=== PATIENT | male | born 1965 | race Caucasian/White ===

== ENCOUNTER 2023-01-02 10:45 | Day surgery (SDC) | payer OTHER ==
[2023-01-02] MEDS ORDERED: Ringers Lactate 1,000 ML IV ONE (11:07)
--- NOTE | 2023-01-02 11:37 | EKG ---
Test Date: 2023-01-01 Test Time: 13:09:35 Imaging Account Manager: CD MEASUREMENT RESULTS: Intervals: Rate: 84 WI: 178 QRSD: 158 QT: 422 QTc: 498 Dix: P: 78 WI: 178 QRS: -57 T: 53 INTERPRETIVE STATEMENTS: Normal sinus rhythm Right bundle branch block Left anterior fascicular block Bifascicular block Abnormal ECG No previous ECG available for comparison Electronically Signed On 01-02-23 11:36:36 CDT by Diaz Taveras
[2023-01-02] MEDS ORDERED: LIDOCAINE 1% MPF 5 ML VIAL ONE (12:23)
[2023-01-02] MEDS ORDERED: propofoL 200 MG/20 ML VIAL IV ONE ×2 (12:23→13:25)
[2023-01-02 13:50] VITALS: TEMP 97.3
[2023-01-02 13:52] VITALS: BP 119/99; O2SAT 98
== END 2023-01-02 13:30 | disposition home or self-care (01) ==
LOC: OR 10:45
PROVIDERS: ATTEND Surgery
PROC: 0DBN8ZX Excision of Sigmoid Colon, Via Natural or Artificial Opening Endoscopic, Diagnostic (ICD-10-PCS; principal; 2023-01-02 12:30)
DX: K63.89 Other specified diseases of intestine (principal); N42.9 Disorder of prostate, unspecified; K57.32 Diverticulitis of large intestine without perforation or abscess without bleeding; K63.2 Fistula of intestine; R10.30 Lower abdominal pain, unspecified
CPT/HCPCS: 93005; 88305; 45380; J2704 ×2; J2001; J7120

== ENCOUNTER 2023-01-14 06:31 | Day surgery (SDC) | payer OTHER ==
[2023-01-09 15:24] LABS: Protime INR 0.94
[2023-01-14] MEDS ORDERED: Gentamicin Inj 200 MG in NA CHLORIDE 0.9% 100 ML IV ONE (07:00)
[2023-01-14] MEDS ORDERED: Ringers Lactate 1,000 ML IV ONE (07:02)
[2023-01-14] MEDS ORDERED: AMPICILLIN SODIUM 2 GM/VIAL VIAL ONE (07:02)
[2023-01-14] MEDS ORDERED: FENTANYL CITR 100 MCG/2 ML ONE ×3 (07:18→08:56)
[2023-01-14] MEDS ORDERED: propofoL 200 MG/20 ML VIAL IV ONE (07:18)
[2023-01-14] MEDS ORDERED: LIDOCAINE 1% MPF 5 ML VIAL ONE (07:19)
[2023-01-14] MEDS ORDERED: ONDANSETRON 4 MG/2 ML VIAL ONE (07:19)
[2023-01-14] MEDS ORDERED: MIDAZOLAM HCL 2 MG/2 ML INJ ONE (07:19)
[2023-01-14] MEDS ORDERED: dexAMETHasone 10 MG/ML VIAL ONE (08:00)
[2023-01-14] MEDS ORDERED: KETAMINE HCL IN 0.9 % NACL 50 MG/5 ML SYRINGE IV ONE (08:07)
[2023-01-14] MEDS ORDERED: KETOROLAC 30 MG/ML INJ ONE (08:46)
[2023-01-14] MEDS ORDERED: PHENAZOPYRIDINE 100MG TAB PO ONE ×2 (08:52→09:37)
[2023-01-14] MEDS ORDERED: CODEINE 30MG/APAP 300MG TAB PO PRN (08:52)
--- NOTE | 2023-01-14 09:26 | OP ---
Surgeon: JOSEMANUEL BRUNSON Preoperative Diagnosis: Colovesical fistula. Postoperative Diagnoses: 1.Colovesical fistula. 2.Chronic cystitis bacillary. Principal Procedures: Cystoscopy with bladder biopsies and fulguration. Indication For Procedure: Mr. Monet is a 57-year-old gentleman, who presented to [facility] with recurrent urinary tract infections. He underwent evaluation revealing suspected colovesical f istula observed cystoscopically in the posterior wall of his bladder. He subsequently underwent a CT scan, which revealed what appeared to be potentially a mass in the colon, and I referred him for gen eral surgical evaluation. He saw Dr. Fong in evaluation and a colonoscopy was performed without e vidence of any significant colonic mass identified. As a result, to rule out bladder lesion/tumor as the primary source for the fistulous tract development, bladder biopsies were recommended. He prese [facility] today for that evaluation. Findings: Left lateral wall posterior colovesical fistula and chronic cystitis. Procedure In Detail: The patient was consented in the preoperative holding area before being transfe rred to the operative suite where general anesthesia was induced. He was given ampicillin 2 g and ge ntamicin 2-3 mg/kg IV antimicrobial prophylaxis, and pneumo boots were provided for DVT prophylaxis. He was placed in the lithotomy position, padded and secured to the table appropriately. His genital ia were prepped with Hibiclens, and he was draped in standard fashion. The case was begun using a 22 -Egyptian rigid cystoscope to traverse the urethra and into the bladder with ease. The bladder was dec ompressed of fluid and some slightly cloudy appearing urine and then refilled with sterile water. Th e bladder was distended and surveyed in its entirety. Within the left lateral wall of the bladder po steriorly, there was evidence of significant inflammatory change of the mucosa suspicious for the fis tulous site. The remainder of the bladder was free of any significant mucosal lesion, though there w ere small areas of evident chronic cystitis throughout. As a result, I utilized a cold cup biopsy fo rceps to biopsy the mucosa surrounding the central portion of the fistulous site where some mucus cou ld be seen entering into the bladder. Once the edematous and inflamed tissue had been removed, the e vident fistulous tract was visible with colonic mucosa identifiable via the magnified cystoscopic bhumi s. Those biopsies were sent for pathologic analysis, and I utilized a Bugbee electrode to fulgurate the base of the biopsy area that was actively bleeding because of the ongoing inflammation. Once the bleeding was controlled and the bladder was decompressed, and there continued to be absence of any b leeding, I then surveyed the remainder of the bladder using a 70-degree lens in addition to the 30-de gree lens that was used throughout the procedure, and once I confirmed absence of any additional lesi ons of suspicion, I decompressed his bladder and removed the cystoscope. He was then taken out of th e lithotomy position, awakened from general anesthesia, transferred to a stretcher, and then transfer red to the recovery room in good condition. Complications: None. Discharge Disposition: He should follow up in the Urology Clinic, which may be a virtual visit, to ivett vega the results of the pathology within the next 1-2 weeks. We anticipate the pathology to be mela ign for any bladder malignancy, and he would then be scheduled with Dr. Fong for sigmoidectomy wit h repair of the bladder done by me simultaneously. Of note, after biopsying the inflamed mucosa arou nd the fistulous injury, I did see what appeared to be potentially a foreign body material at that ju nction potentially old staple material that may have dropped into that region from his prior hernia r epair. I will discuss this with Dr. Fong. ESTEBAN/BARRERA Voice ID: [id number] Report ID: [id number]
[2023-01-14] MEDS ORDERED: CODEINE 30MG/APAP 300MG TAB ONE (09:37)
[2023-01-14 09:50] VITALS: BP 145/85; TEMP 97.3; O2SAT 98
== END 2023-01-14 10:04 | disposition home or self-care (01) ==
LOC: OR 06:31
PROVIDERS: ATTEND Urology
PROC: 0TBB8ZX Excision of Bladder, Via Natural or Artificial Opening Endoscopic, Diagnostic (ICD-10-PCS; principal; 2023-01-14 07:30)
DX: N32.1 Vesicointestinal fistula (principal); N32.9 Bladder disorder, unspecified; N30.20 Other chronic cystitis without hematuria
CPT/HCPCS: 87088; 87086; 36415; 85610; 88305; 52204; J2704; J2001; J1580; J2250; J3010 ×3; J1100; J2405; J0290; J7120

== ENCOUNTER 2023-02-25 06:58 | Inpatient (IN) | payer OTHER ==
[2023-02-21 15:41] LABS: Protime INR 1.03
[2023-02-21 15:47] LABS: Absolute Lymphocytes (CBC) 1.4 K/uL (0.7-4.9); Hematocrit 36.5 % (39.6-49.0); Lymphocytes % 25.3 % (15.3-44.8); MCV 94.2 fL (80-100); MPV 8.8 fL (7.6-11.3); RBC Red Blood Cell Count 3.87 M/uL (4.33-5.43)
[2023-02-21 15:55] LABS: Potassium 3.3 mEq/L (3.5-5.1)
[2023-02-25] MEDS ORDERED: Ringers Lactate 1,000 ML IV ONE ×3 (07:23→12:03)
[2023-02-25] MEDS ORDERED: CEFAZOLIN SODIUM 2 GM/VIAL ONE (07:23)
[2023-02-25] MEDS ORDERED: FENTANYL CITR 100 MCG/2 ML ONE ×3 (07:41→12:04)
[2023-02-25] MEDS ORDERED: propofoL 200 MG/20 ML VIAL IV ONE (07:42)
[2023-02-25] MEDS ORDERED: MIDAZOLAM HCL 2 MG/2 ML INJ ONE (07:42)
[2023-02-25] MEDS ORDERED: LIDOCAINE 2% MPF 5 ML VIAL ONE (07:43)
[2023-02-25] MEDS ORDERED: ROCURONIUM 50 MG/5 ML VIAL IV ONE (07:44)
[2023-02-25] MEDS ORDERED: ONDANSETRON 4 MG/2 ML VIAL ONE ×2 (07:44→15:59)
[2023-02-25] MEDS ORDERED: BUPIVACAINE 0.25% PF 30 ML VIAL ONE (08:24)
[2023-02-25] MEDS ORDERED: dexAMETHasone 10 MG/ML VIAL ONE (08:30)
[2023-02-25] MEDS ORDERED: KETOROLAC 30 MG/ML INJ ONE (08:31)
[2023-02-25] MEDS ORDERED: EPHEDRINE SULF 50 MG/ML VIAL ONE (08:37)
[2023-02-25] MEDS ORDERED: METHYLENE BLUE 0.5% 10 ML AMP ONE (08:40)
[2023-02-25] MEDS ORDERED: VECURONIUM 10 MG/VIAL IV ONE (09:12)
[2023-02-25] MEDS ORDERED: HYDROMORPHONE HCL 2 MG/ML inj ONE (10:41)
--- NOTE | 2023-02-25 14:40 | P.OP ---
Cabin Equipment Supervisor: Shreya Valenzuela (Dr. Galicia Urologist Co-Surgeon) Preoperative diagnosis: Sigmoid Diverticulitis with [place] Fistula Postoperative diagnosis: Sigmoid Diverticulitis with [place] Fistula Primary procedure: Laparoscopic Sigmoid Colectomy with primary anastamosis Secondary procedure: Takedown of Colovesicle Fistula Anesthesia: GETA + Local Estimated blood loss: <50cc Specimen: Sigmoid Colon, Donuts from EEA Stapler / Anastamosis Findings: Severe LLQ adhesions from sigmoid to bladder Complications: None Drain(s): SHAKIR drain (10mm Flat) Transferred to: Recovery Room Condition: Good
[2023-02-25] MEDS ORDERED: ONDANSETRON 4 MG (ODT) TAB PO PRN (15:23)
[2023-02-25] MEDS ORDERED: METRONIDAZOLE 500mg IVPB 500 MG/100 ML BAG IV ONE ×2 (16:00→16:17)
[2023-02-25] MEDS ORDERED: Levofloxacin500mg IV 500 MG/100 ML BAG IV ONE (16:00)
--- OUTSIDE RECORDS SUMMARY | 2023-02-25 16:01 | XMS REPORT | Continuity of Care Document ---
:1965 Author Organization [facility] t Address [address] [place] [address] [place] [id number] Care Team Providers Name Role Phone Jacqueline Crowell MD Primary Care Physician [phone] Josh UPPER MARKER, Ogechukwu Attending Clinician DONELL Attending Clinician Unavailable Jacqueline Crowell MD Attending Clinician [phone] JACQUELINE CROWELL Attending Clinician Unavailable Doctor Unassigned, [facility] Attending Clinician Unavailable 2, [facility] Attending Clinician Unavailable DONELL Admitting Clinician Unavailable Payers Payer Name Policy Type Policy Number Effective Date Expiration Date S ource Deysi Benefits 53 [id number] [facility] DEYSI BENEFITS [id number] (PPO) Problems Condition Condition Condition Status Onset Resolution Last Treating Co mments Source Name Details Category Date Date Treatment Clinician Date Essential Essential Problem Active 2021-09 Swe nate hypertensi Hypertensi 09-10 Co [facility]muni on on [facility] Depressive Depressive Problem Active 2021-09 S weeny disorder Disorder 09-10 Commun i 00:00: [facility] Insomnia Insomnia Problem Active 2021-09 Sween y 09-10 Communi 00:00: [facility] Caregiver Caregiver Disease Active Uni vers stress stress 01-14 ity of 00:00: [place] 00 [facility] Hyperlipid Hyperlipid Disease Active U nivrocío emia emia 01-03 ity of 00:00: [place] 00 [facility] Essential Essential Disease Active Uni vers hypertensi hypertensi 10-03 it y of on, benign [place] [facility] Vitamin D Vitamin D Disease Active Overview: Univers deficiency deficiency 10-03 Formattin ity of 00:00: g of this note Medical might be Branch different from the original. 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 10-03 ity of 00:00: [place] 00 [facility] Branch [id number] Acute Problem Common cystitis Spirit with - [facility] hematuria [facility] [id number] Family Problem Common history of [facility] bladder - [facility] cancer [facility] [id number] Gross Problem Common hematuria [facility] [id number] Lower Problem Common [facility] Allergies, Adverse Reactions, Alerts Allergy Allergy Status Severity Reaction(s) Onset Inactive Treating Comm ents Source Name Type Date Date Clinician NO KNOWN Drug Active Univers ALLERGIE Class ity of S [facility] Social History Social Habit Start Date Stop Date Quantity Comments Source History of [facility] - Tobacco Use [facility] Sex Assigned At Common Sp antony - [facility] Exposure to 2021-12-29 2022-01-08 Not sure University SARS-CoV-2 00:00:00 09:00:00 [place] Medical (event) Branch Alcohol intake 2021-07-10 2021-07-10 Current University of 00:00:00 00:00:00 non-drinker of [facility] alcohol (finding) Branch Tobacco use and 2014-10-04 2014-10-04 Smokeless tobacco Un iversity of exposure 00:00:00 00:00:00 non-user [facility] Smoking Status Start Date Stop Date Source Never Smoker [facility] Medications Ordered Filled Start Stop Current Ordering Indication Dosage Frequency Signature Comments Components Source Medication Medication Date Date Medication? Clinician (SIG) Name Name Cefpodoxime Cefpodoxime 2022- No 1{table BID Cefpodoxim Proxetil Proxetil 10-09 t_with_ e Proxetil 200 MG 200 MG 00:00: 00:00 food} 200 MG 00 :00 Flomax 0.4 Flomax 0.4 2022- No 1{capsu QD Flomax 0.4 MG MG -18 08-16 le} MG 00:00: 00:00 00 :00 Flomax 0.4 Flomax 0.4 2022- No 1{capsu QD Flomax 0.4 MG MG 18 -16 le} MG 00:00: 00:00 00 :00 ZOLPIDEM 10 2021-09 Yes [id number] 10mg TAKE 1 U nivers mg tablet 1-30 TABLET BY ity o f 00:00: MOUTH AT [place] 00 BEDTIME Medical NEEDED FOR Branch INSOMNIA ZOLPIDEM 10 2021-09 Yes [id number] 10mg TAKE 1 U nivers mg tablet 1-30 TABLET BY ity o f 00:00: MOUTH AT [place] 00 BEDTIME Medical NEEDED FOR Branch INSOMNIA ZOLPIDEM 10 Yes [id number] 10mg TAKE 1 U nivers mg tablet 9-23 TABLET BY ity o f 00:00: MOUTH AT [place] 00 BEDTIME Medical NEEDED FOR Branch INSOMNIA. ZOLPIDEM 10 2021- No [id number] 10mg TAKE 1 Univers mg tablet 9-23 11-30 TABLET BY ity of 00:00: 00:00 MOUTH AT [place] 00 :00 BEDTIME Medical NEEDED FOR Branch INSOMNIA. multivitami Yes 1{tbl} Take 1 Tab Univers n tablet 5-03 by mouth ity of 08:58: daily. [place] [id number] Medical Branch CYANOCOBALA Yes Take by Uni vers MIN, 5-03 mouth. ity of VITAMIN 08:58: Medical (VITAMIN Branch B-12 ORAL) multivitami Yes 1{tbl} Take 1 Tab Univers n tablet 5-03 by mouth ity of 08:58: daily. Medical Branch CYANOCOBALA Yes Take by Uni vers MIN, 5-03 mouth. ity of VITAMIN 08:58: Medical (VITAMIN Branch B-12 ORAL) multivitami Yes 1{tbl} Take 1 Tab Univers n tablet 5-03 by mouth ity of 08:58: daily. Medical Branch CYANOCOBALA Yes Take by Uni vers MIN, 5-03 mouth. ity of VITAMIN 08:58: Medical (VITAMIN Branch B-12 ORAL) multivitami Yes 1{tbl} Take 1 Tab Univers n tablet 5-03 by mouth ity of 08:58: daily. Medical Branch CYANOCOBALA Yes Take by Uni vers MIN, 5-03 mouth. ity of VITAMIN 08:58: Medical (VITAMIN Branch B-12 ORAL) multivitami Yes 1{tbl} Take 1 Tab Univers n tablet 5-03 by mouth ity of 08:58: daily. Medical Branch CYANOCOBALA Yes Take by Uni vers MIN, 5-03 mouth. ity of VITAMIN 08:58: [place] Medical (VITAMIN Branch B-12 ORAL) lisinopriL Yes [id number] 20mg Take 1 Un ilia 20 mg 5-03 tablet by ity of tablet 00:00: mouth 00 daily. Medical Branch cyclobenzap Yes [id number] Start with Univers rine 5 mg 5-03 one pill ity of tablet 00:00: daily as [place] [id number] needed, Medical can use up Branch to one pill three times a day. zolpidem 10 Yes [id number] 10mg Take 1 U nivers mg tablet 5-03 tablet by ity o f 00:00: mouth at [place] 00 bedtime as Medical needed for Branch Insomnia. lisinopriL Yes [id number] 20mg Take 1 Un ilia 20 mg 5-03 tablet by ity of tablet 00:00: mouth [place] 00 daily. Medical Branch cyclobenzap Yes [id number] Start with Univers rine 5 mg 5-03 one pill ity of tablet 00:00: daily as [place] 00 needed, Medical can use up Branch to one pill three times a day. zolpidem 10 0 Yes [id number] 10mg Take 1 U nivers mg tablet 5-03 tablet by ity o f 00:00: mouth at [place] 00 bedtime as Medical needed for Branch Insomnia. lisinopriL 0 Yes [id number] 20mg Take 1 Un ilia 20 mg 5-03 tablet by ity of tablet 00:00: mouth [place] 00 daily. Medical Branch cyclobenzap Yes [id number] Start with Univers rine 5 mg 5-03 one pill ity of tablet 00:00: daily as [place] 00 needed, Medical can use up Branch to one pill three times a day. lisinopriL 0 Yes [id number] 20mg Take 1 Un ilia 20 mg 5-03 tablet by ity of tablet 00:00: mouth [place] 00 daily. Medical Branch cyclobenzap Yes [id number] Start with Univers rine 5 mg 5-03 one pill ity of tablet 00:00: daily as [place] 00 needed, Medical can use up Branch to one pill three times a day. lisinopriL 0 Yes [id number] 20mg Take 1 Un ilia 20 mg 5-03 tablet by ity of tablet 00:00: mouth [place] 00 daily. Medical Branch cyclobenzap Yes [id number] Start with Univers rine 5 mg 5-03 one pill ity of tablet 00:00: daily as [place] 00 needed, Medical can use up Branch to one pill three times a day. zolpidem 10 2021- No [id number] 10mg Take 1 Univers mg tablet 5-03 -23 tablet by ity of 00:00: 00:00 mouth at [place] 00 :00 bedtime as Medical needed for Branch Insomnia. ibuprofen 0 Yes [id number] 600mg Take 1 Univers 600 mg 1-19 tablet by ity of tablet 00:00: mouth [place] 00 every 6 Medical (six) Branch hours as needed (take with food. increase hydration) . ibuprofen 2021-0 Yes [id number] 600mg Take 1 Univers 600 mg 1-19 tablet by ity of tablet 00:00: mouth [place] 00 every 6 Medical (six) Branch hours as needed (take with food. increase hydration) . ibuprofen 2021-0 Yes [id number] 600mg Take 1 Univers 600 mg 1-19 tablet by ity of tablet 00:00: mouth [place] 00 every 6 Medical (six) Branch hours as needed (take with food. increase hydration) . ibuprofen 2021-0 Yes [id number] 600mg Take 1 Univers 600 mg 1-19 tablet by ity of tablet 00:00: mouth [place] 00 every 6 Medical (six) Branch hours as needed (take with food. increase hydration) . ibuprofen 2021-0 Yes [id number] 600mg Take 1 Univers 600 mg 1-19 tablet by ity of tablet 00:00: mouth [place] 00 every 6 Medical (six) Branch hours as needed (take with food. increase hydration) . fluticasone 2020-09 Yes [id number] 1{spray Use 1 Univers propionate 1-02 } [place] in ity o f 50 00:00: each [place] mcg/actuati 00 nostril Medic al on nasal daily. Branch spray fluticasone 2020-09 Yes [id number] 1{spray Use 1 Univers propionate 1-02 } [place] in ity o f 50 00:00: each [place] mcg/actuati 00 nostril Medic al on nasal daily. Branch spray fluticasone 2020-09 Yes [id number] 1{spray Use 1 Univers propionate 1-02 } [place] in ity o f 50 00:00: each [place] mcg/actuati 00 nostril Medic al on nasal daily. Branch spray fluticasone 2020-09 Yes [id number] 1{spray Use 1 Univers propionate 1-02 } [place] in ity o f 50 00:00: each [place] mcg/actuati 00 nostril Medic al on nasal daily. Branch spray fluticasone 2020-09 Yes [id number] 1{spray Use 1 Univers propionate 1-02 } [place] in ity o f 50 00:00: each [place] mcg/actuati 00 nostril Medic al on nasal daily. Branch spray zolpidem 10 2020-09- No [id number] 10mg Take 1 Univers mg tablet 09-09-03 tablet by ity of 00:00: 00:00 mouth at [place] 00 :00 bedtime as Medical needed for Branch Insomnia. zolpidem 10 2020-09- No [id number] 10mg Take 1 Univers mg tablet 09-09 tablet by ity of 00:00: 00:00 mouth at [place] 00 :00 bedtime as Medical needed for Branch Insomnia. lisinopriL 2020-09- No [id number] 40mg Take 1 U nivers 40 mg 0- tablet by ity of tablet 00:00: 00:00 mouth [place] 00 :00 daily. Medical Branch lisinopriL 2020-09- No [id number] 40mg Take 1 U nivers 40 mg - tablet by ity of tablet 00:: : mouth [place] 00 :00 daily. Medical Branch amlodipine amlodipine No 1 Q1D amlodipine [place] 5 mg tablet 5 mg tablet 5 mg C ommuni Take 1 Take 1 tablet ty tablet tablet Take 1 Hospita every day every day tablet l by oral by oral every day Clin ics route for route for by oral 90 days. 90 days. route for 90 days. atorvastati atorvastati No 1 Q1D atorvastat [place] n 20 mg n 20 mg in 20 mg Commu ni tablet Take tablet Take tablet ty 1 tablet 1 tablet Take 1 Hospi ta every day every day tablet l by oral by oral every day Clin ics route for route for by oral 90 days. 90 days. route for 90 days. cyclobenzap cyclobenzap No cyclobenza [place] rine 5 mg rine 5 mg champ 5 mg Communi tablet tablet tablet ty [facility] fluticasone fluticasone No 1spray( Q1D fluticason [place] propionate propionate s) e Com inga 50 50 propionate ty mcg/actuati mcg/actuati 50 H ospita on nasal on nasal mcg/actuat l spray,suspe spray,suspe ion nasal Clinics nsion [place] nsion [place] spray,susp 1 spray 1 spray ension every day every day [place] 1 by by spray intranasal intranasal every day route as route as by directed. directed. intranasal route as directed. ibuprofen ibuprofen No ibuprofen [place] 600 mg 600 mg 600 mg Communi tablet tablet tablet ty [facility] lisinopril lisinopril No 1 Q1D lisinopril [place] 40 mg 40 mg 40 mg Communi tablet Take tablet Take tablet ty 1 tablet 1 tablet Take 1 Hospi ta every day every day tablet l by oral by oral every day Clin ics route for route for by oral 90 days. 90 days. route for 90 days. multivitami multivitami No multivitam [place] n n in Communi ty Hospita l Clinics mupirocin 2 mupirocin 2 No mupirocin [place] % topical % topical 2 % Commu ni ointment ointment topical ty APPLY A APPLY A ointment Hospi ta SMALL SMALL APPLY A l AMOUNT TO AMOUNT TO SMALL Clin ics THE THE AMOUNT TO AFFECTED AFFECTED THE AREA BY AREA BY AFFECTED TOPICAL TOPICAL AREA BY ROUTE 3 ROUTE 3 TOPICAL TIMES PER TIMES PER ROUTE 3 DAY DAY TIMES PER DAY nitrofurant nitrofurant No 1capsul Q6H nitrofuran [place] oin oin e(s) toin Communi macrocrysta macrocrysta macrocryst ty l 100 mg l 100 mg al 100 mg [facility] capsule capsule capsule l Take 1 Take 1 Take 1 Clinics capsule capsule capsule every 6 every 6 every 6 hours by hours by hours by oral route oral route oral route for 7 days. for 7 days. for 7 days. omeprazole omeprazole No 1capsul Q1D omeprazole [place] 20 mg 20 mg e(s) 20 mg Communi capsule,del capsule,del capsule,de ty ayed ayed layed Hospita release release release l Take 1 Take 1 Take 1 Clinics capsule capsule capsule every day every day every day by oral by oral by oral route. route. route. ondansetron ondansetron No 1 Q5H ondansetro [place] 4 mg 4 mg n 4 mg Communi disintegrat disintegrat disintegra ty ing tablet ing tablet ting Hos par[facility]en Place 1 Place 1 tablet l tablet tablet Place 1 Clinics every 4-6 every 4-6 tablet hours by hours by every 4-6 translingua translingua hours by l route as l route as translingu needed for needed for al route 5 days. 5 days. as needed for 5 days. tamsulosin tamsulosin No 1capsul Q1D tamsulosin [place] 0.4 mg 0.4 mg e(s) 0.4 mg Communi capsule capsule capsule ty Take 1 Take 1 Take 1 Hospita capsule capsule capsule l every day every day every day Clinics by oral by oral by oral route. route. route. zolpidem 10 zolpidem 10 No zolpidem [place] mg tablet mg tablet 10 mg Comm uni TAKE 1 TAKE 1 tablet ty TABLET BY TABLET BY TAKE 1 Hos parveen MOUTH AT MOUTH AT TABLET BY l BEDTIME BEDTIME MOUTH AT Clinics NEEDED FOR NEEDED FOR BEDTIME INSOMNIA INSOMNIA NEEDED FOR INSOMNIA amlodipine amlodipine No 1 Q1D amlodipine [place] 5 mg tablet 5 mg tablet 5 mg C ommuni Take 1 Take 1 tablet ty tablet tablet Take 1 Hospita every day every day tablet l by oral by oral every day Clin ics route for route for by oral 90 days. 90 days. route for 90 days. atorvastati atorvastati No 1 Q1D atorvastat [place] n 20 mg n 20 mg in 20 mg Commu ni tablet Take tablet Take tablet ty 1 tablet 1 tablet Take 1 Hospi ta every day every day tablet l by oral by oral every day Clin ics route for route for by oral 90 days. 90 days. route for 90 days. cyclobenzap cyclobenzap No cyclobenza [place] rine 5 mg rine 5 mg champ 5 mg Communi tablet tablet tablet ty Hospita l Clinics fluticasone fluticasone No 1spray( Q1D fluticason [place] propionate propionate s) e Com inga 50 50 propionate ty mcg/actuati mcg/actuati 50 H ospita on nasal on nasal mcg/actuat l spray,suspe spray,suspe ion nasal Clinics nsion [place] nsion [place] spray,susp 1 spray 1 spray ension every day every day [place] 1 by by spray intranasal intranasal every day route as route as by directed. directed. intranasal route as directed. ibuprofen ibuprofen No ibuprofen [place] 600 mg 600 mg 600 mg Communi tablet tablet tablet ty Hospita l Clinics lisinopril lisinopril No 1 Q1D lisinopril [place] 40 mg 40 mg 40 mg Communi tablet Take tablet Take tablet ty 1 tablet 1 tablet Take 1 Hospi ta every day every day tablet l by oral by oral every day Clin ics route for route for by oral 90 days. 90 days. route for 90 days. multivitami multivitami No multivitam [place] n n in Communi ty Hospita l Clinics amlodipine amlodipine No 1 Q1D amlodipine [place] 5 mg tablet 5 mg tablet 5 mg C ommuni Take 1 Take 1 tablet ty tablet tablet Take 1 Hospita every day every day tablet l by oral by oral every day Clin ics route for route for by oral 90 days. 90 days. route for 90 days. mupirocin 2 mupirocin 2 No mupirocin [place] % topical % topical 2 % Commu ni ointment ointment topical ty APPLY A APPLY A ointment Hospi ta SMALL SMALL APPLY A l AMOUNT TO AMOUNT TO SMALL Clin ics THE THE AMOUNT TO AFFECTED AFFECTED THE AREA BY AREA BY AFFECTED TOPICAL TOPICAL AREA BY ROUTE 3 ROUTE 3 TOPICAL TIMES PER TIMES PER ROUTE 3 DAY DAY TIMES PER DAY nitrofurant nitrofurant No 1capsul Q6H nitrofuran [place] oin oin e(s) toin Communi macrocrysta macrocrysta macrocryst ty l 100 mg l 100 mg al 100 mg [facility] spita capsule capsule capsule l Take 1 Take 1 Take 1 Clinics capsule capsule capsule every 6 every 6 every 6 hours by hours by hours by oral route oral route oral route for 7 days. for 7 days. for 7 days. omeprazole omeprazole No 1capsul Q1D omeprazole [place] 20 mg 20 mg e(s) 20 mg Communi capsule,del capsule,del capsule,de ty ayed ayed layed Hospita release release release l Take 1 Take 1 Take 1 Clinics capsule capsule capsule every day every day every day by oral by oral by oral route. route. route. ondansetron ondansetron No 1 Q5H ondansetro [place] 4 mg 4 mg n 4 mg Communi disintegrat disintegrat disintegra ty ing tablet ing tablet ting Hos [facility] Place 1 Place 1 tablet l tablet tablet Place 1 Clinics every 4-6 every 4-6 tablet hours by hours by every 4-6 translingua translingua hours by l route as l route as translingu needed for needed for al route 5 days. 5 days. as needed for 5 days. tamsulosin tamsulosin No 1capsul Q1D tamsulosin [place] 0.4 mg 0.4 mg e(s) 0.4 mg Communi capsule capsule capsule ty Take 1 Take 1 Take 1 Hospita capsule capsule capsule l every day every day every day Clinics by oral by oral by oral route. route. route. zolpidem 10 zolpidem 10 No zolpidem [place] mg tablet mg tablet 10 mg Comm uni TAKE 1 TAKE 1 tablet ty TABLET BY TABLET BY TAKE 1 Hos parveen MOUTH AT MOUTH AT TABLET BY l BEDTIME BEDTIME MOUTH AT Clinics NEEDED FOR NEEDED FOR BEDTIME INSOMNIA INSOMNIA NEEDED FOR INSOMNIA atorvastati atorvastati No 1 Q1D atorvastat [place] n 20 mg n 20 mg in 20 mg Commu ni tablet Take tablet Take tablet ty 1 tablet 1 tablet Take 1 Hospi ta every day every day tablet l by oral by oral every day Clin ics route for route for by oral 90 days. 90 days. route for 90 days. cyclobenzap cyclobenzap No cyclobenza [place] rine 5 mg rine 5 mg champ 5 mg Communi tablet tablet tablet ty [facility] fluticasone fluticasone No fluticason [place] propionate propionate e Com inga 50 50 propionate ty mcg/actuati mcg/actuati 50 H [facility]spita on nasal on nasal mcg/actuat l spray,suspe spray,suspe ion nasal Clinics nsion nsion spray,susp ension ibuprofen ibuprofen No ibuprofen [place] 600 mg 600 mg 600 mg Communi tablet tablet tablet ty [facility] lisinopril lisinopril No 1 Q1D lisinopril [place] 40 mg 40 mg 40 mg Communi tablet Take tablet Take tablet ty 1 tablet 1 tablet Take 1 Hospi ta every day every day tablet l by oral by oral every day Clin ics route for route for by oral 90 days. 90 days. route for 90 days. amlodipine amlodipine No 1 Q1D amlodipine [place] 5 mg tablet 5 mg tablet 5 mg C ommuni Take 1 Take 1 tablet ty tablet tablet Take 1 Hospita every day every day tablet l by oral by oral every day Clin ics route for route for by oral 90 days. 90 days. route for 90 days. atorvastati atorvastati No 1 Q1D atorvastat [place] n 20 mg n 20 mg in 20 mg Commu ni tablet Take tablet Take tablet ty 1 tablet 1 tablet Take 1 Hospi ta every day every day tablet l by oral by oral every day Clin ics route for route for by oral 90 days. 90 days. route for 90 days. cyclobenzap cyclobenzap No cyclobenza [place] rine 5 mg rine 5 mg champ 5 mg Communi tablet tablet tablet ty [facility] fluticasone fluticasone No fluticason [place] propionate propionate e Com inga 50 50 propionate ty mcg/actuati mcg/actuati 50 H ospita on nasal on nasal mcg/actuat l spray,suspe spray,suspe ion nasal Clinics nsion nsion spray,susp ension ibuprofen ibuprofen No ibuprofen [place] 600 mg 600 mg 600 mg Communi tablet tablet tablet [facility] lisinopril lisinopril No 1 Q1D lisinopril [place] 40 mg 40 mg 40 mg Communi tablet Take tablet Take tablet ty 1 tablet 1 tablet Take 1 Hospi ta every day every day tablet l by oral by oral every day Clin ics route for route for by oral 90 days. 90 days. route for 90 days. amlodipine amlodipine No 1 Q1D amlodipine [place] 5 mg tablet 5 mg tablet 5 mg C ommuni Take 1 Take 1 tablet ty tablet tablet Take 1 Hospita every day every day tablet l by oral by oral every day Clin ics route for route for by oral 90 days. 90 days. route for 90 days. atorvastati atorvastati No 1 Q1D atorvastat [place] n 20 mg n 20 mg in 20 mg Commu ni tablet Take tablet Take tablet ty 1 tablet 1 tablet Take 1 Hospi ta every day every day tablet l by oral by oral every day Clin ics route for route for by oral 90 days. 90 days. route for 90 days. cyclobenzap cyclobenzap No cyclobenza [place] rine 5 mg rine 5 mg champ 5 mg Communi tablet tablet tablet ty [facility] fluticasone fluticasone No fluticason [place] propionate propionate e Com inga 50 50 propionate ty mcg/actuati mcg/actuati 50 H ospita on nasal on nasal mcg/actuat l spray,suspe spray,suspe ion nasal Clinics nsion nsion spray,susp ension ibuprofen ibuprofen No ibuprofen [place] 600 mg 600 mg 600 mg Communi tablet tablet tablet [facility] Levaquin Levaquin No 1 Q1D Levaquin Swe nate 750 mg 750 mg 750 mg Communi tablet Take tablet Take tablet ty 1 tablet 1 tablet Take 1 Hospi ta every day every day tablet l by oral by oral every day Clin ics route for route for by oral 10 days. 10 days. route for 10 days. lisinopril lisinopril No 1 Q1D lisinopril [place] 40 mg 40 mg 40 mg Communi tablet Take tablet Take tablet ty 1 tablet 1 tablet Take 1 Hospi ta every day every day tablet l by oral by oral every day Clin ics route for route for by oral 90 days. 90 days. route for 90 days. ondansetron ondansetron No 1 Q5H ondansetro [place] 4 mg 4 mg n 4 mg Communi disintegrat disintegrat disintegra ty ing tablet ing tablet ting Hos [facility]en Place 1 Place 1 tablet l tablet tablet Place 1 Clinics every 4-6 every 4-6 tablet hours by hours by every 4-6 translingua translingua hours by l route as l route as translingu needed for needed for al route 5 days. 5 days. as needed for 5 days. Pyridium Pyridium No 1 TID Pyridium Swe nate 200 mg 200 mg 200 mg Communi tablet Take tablet Take tablet ty 1 tablet 3 1 tablet 3 Take 1 H ospita times a day times a day tablet 3 l by oral by oral times a Clinic s route for 2 route for 2 day by days. days. oral route for 2 days. amlodipine amlodipine No 1 Q1D amlodipine [place] 5 mg tablet 5 mg tablet 5 mg C ommuni Take 1 Take 1 tablet ty tablet tablet Take 1 Hospita every day every day tablet l by oral by oral every day Clin ics route for route for by oral 90 days. 90 days. route for 90 days. atorvastati atorvastati No 1 Q1D atorvastat [place] n 20 mg n 20 mg in 20 mg Commu ni tablet Take tablet Take tablet ty 1 tablet 1 tablet Take 1 Hospi ta every day every day tablet l by oral by oral every day Clin ics route for route for by oral 90 days. 90 days. route for 90 days. cyclobenzap cyclobenzap No cyclobenza [place] rine 5 mg rine 5 mg champ 5 mg Communi tablet tablet tablet ty Hospita l Clinics fluticasone fluticasone No fluticason [place] propionate propionate e Com inga 50 50 propionate ty mcg/actuati mcg/actuati 50 H ospita on nasal on nasal mcg/actuat l spray,suspe spray,suspe ion nasal Clinics nsion nsion spray,susp ension ibuprofen ibuprofen No ibuprofen [place] 600 mg 600 mg 600 mg Communi tablet tablet tablet ty Hospita l Clinics Levaquin Levaquin No 1 Q1D Levaquin Swe nate 750 mg 750 mg 750 mg Communi tablet Take tablet Take tablet ty 1 tablet 1 tablet Take 1 Hospi ta every day every day tablet l by oral by oral every day Clin ics route for route for by oral 10 days. 10 days. route for 10 days. lisinopril lisinopril No 1 Q1D lisinopril [place] 40 mg 40 mg 40 mg Communi tablet Take tablet Take tablet ty 1 tablet 1 tablet Take 1 Hospi ta every day every day tablet l by oral by oral every day Clin ics route for route for by oral 90 days. 90 days. route for 90 days. ondansetron ondansetron No 1 Q5H ondansetro [place] 4 mg 4 mg n 4 mg Communi disintegrat disintegrat disintegra ty ing tablet ing tablet ting Hos parveen Place 1 Place 1 tablet l tablet tablet Place 1 Clinics every 4-6 every 4-6 tablet hours by hours by every 4-6 translingua translingua hours by l route as l route as translingu needed for needed for al route 5 days. 5 days. as needed for 5 days. phenazopyri phenazopyri No phenazopyr [place] dine 200 mg dine 200 mg idine 200 Communi tablet TAKE tablet TAKE mg tablet ty 1 TABLET BY 1 TABLET BY TAKE 1 Hospita MOUTH 3 MOUTH 3 TABLET BY l TIMES DAILY TIMES DAILY MOUTH 3 Clinics FOR 2 DAYS FOR 2 DAYS TIMES DAILY FOR 2 DAYS Zolpidem Zolpidem No 1{table QD Zolpidem Tartrate 10 Tartrate 10 t_at_be Tartrate MG MG dtime_a 10 MG s_neede d} Multivitami Multivitami No 1{table QD Multivitam n - n - t} in - Vitamin D3 Vitamin D3 No 1{table Vitamin D3 25 MCG 25 MCG t} 25 MCG (1000 UT) (1000 UT) (1000 UT) Omeprazole Omeprazole No QD Omeprazole 20 MG 20 MG 20 MG Ibuprofen Ibuprofen No TID Ibuprofen 600 MG 600 MG 600 MG Lisinopril Lisinopril No 1{table QD Lisinopril 40 MG 40 MG t} 40 MG Cetirizine Cetirizine No 1{table QD Cetirizine HCl 10 MG HCl 10 MG t} HCl 10 MG Lisinopril Lisinopril No 1{table QD Lisinopril 40 MG 40 MG t} 40 MG Cetirizine Cetirizine No 1{table QD Cetirizine HCl 10 MG HCl 10 MG t} HCl 10 MG Omeprazole Omeprazole No QD Omeprazole 20 MG 20 MG 20 MG Vitamin D3 Vitamin D3 No 1{table Vitamin D3 25 MCG 25 MCG t} 25 MCG (1000 UT) (1000 UT) (1000 UT) Ibuprofen Ibuprofen No TID Ibuprofen 600 MG 600 MG 600 MG Zolpidem Zolpidem No 1{table QD Zolpidem Tartrate 10 Tartrate 10 t_at_be Tartrate MG MG dtime_a 10 MG s_neede d} Multivitami Multivitami No 1{table QD Multivitam n - n - t} in - Vital Signs Vital Name Observation Time Observation Value Comments Source Height 2023-01-28 00:00:00 68 [in_i] [facility] s BMI (Body Mass 2023-01-28 00:00:00 25.7 kg/m2 [facility] s Body Weight 2023-01-28 00:00:00 2705.6 [oz_av] [facility] s BP Diastolic 2023-01-28 00:00:00 89 mm[Hg] [facility] s BP Systolic 2023-01-28 00:00:00 169 mm[Hg] [facility] s height 2022-10-09 17:15:00 67 [in_i] [facility] weight 2022-10-09 17:15:00 180 [lb_av] [facility] temperature 2022-10-09 17:15:00 97.6 [degF] [facility] bmi 2022-10-09 17:15:00 28.19 kg/m2 [facility] oximetry 2022-10-09 17:15:00 98 % Common [facility] respiratory rate 2022-10-09 17:15:00 18 /min Comm on [facility] blood pressure 2022-10-09 17:15:00 140 mm[Hg] Common [facility] - systolic [facility] blood pressure 2022-10-09 17:15:00 90 mm[Hg] Common [facility] - diastolic [facility] height 2022-09-25 08:30:00 67 [in_i] [facility] weight 2022-09-25 08:30:00 175.4 [lb_av] [facility] temperature 2022-09-25 08:30:00 98.7 [degF] [facility] bmi 2022-09-25 08:30:00 27.47 kg/m2 [facility] oximetry 2022-09-25 08:30:00 96 % [facility] respiratory rate 2022-09-25 08:30:00 16 /min Comm on [facility] blood pressure 2022-09-25 08:30:00 140 mm[Hg] [facility] - systolic [facility] blood pressure 2022-09-25 08:30:00 78 mm[Hg] Common [facility] - diastolic [facility] BP Diastolic 2022-08-14 00:00:00 74 mm[Hg] [facility] s Height 2022-08-14 00:00:00 68 [in_i] [facility] s BMI (Body Mass 2022-08-14 00:00:00 27.4 kg/m2 [facility] s BP Systolic 2022-08-14 00:00:00 139 mm[Hg] [facility] s Body Weight 2022-08-14 00:00:00 2880 [oz_av] [facility] s BP Diastolic 2022-07-30 00:00:00 88 mm[Hg] [facility] s Height 2022-07-30 00:00:00 68 [in_i] [facility] s BMI (Body Mass 2022-07-30 00:00:00 28.6 kg/m2 [facility]) [facility] s BP Systolic 2022-07-30 00:00:00 118 mm[Hg] [facility] Body Weight 2022-07-30 00:00:00 3008 [oz_av] [facility] s BP Diastolic 2022-07-11 00:00:00 93 mm[Hg] [facility] Height 2022-07-11 00:00:00 68 [in_i] [facility] s BMI (Body Mass 2022-07-11 00:00:00 28.3 kg/m2 [facility]) [facility] s BP Systolic 2022-07-11 00:00:00 180 mm[Hg] [facility] s Body Weight 2022-07-11 00:00:00 2976 [oz_av] [facility] s Systolic blood 2022-01-08 13:53:00 136 mm[Hg] Univer sity of pressure [facility] Diastolic blood 2022-01-08 13:53:00 83 mm[Hg] Unive rsity of [facility] Heart rate 2022-01-08 13:53:00 98 /min [facility] Body temperature 2022-01-08 13:53:00 36.78 [facility] 2022-01-08 13:53:00 18 /min [facility] Body height 2022-01-08 13:53:00 172.7 cm [facility] Body weight 2022-01-08 13:53:00 87.544 kg [facility] BMI 2022-01-08 13:53:00 29.35 kg/m2 [facility] Oxygen saturation in 2022-01-08 13:53:00 99 /min [facility] blood by [facility] Pulse oximetry Branch Procedures Procedure Date / Time Performed Performing Clinician [facility] e XR, kidney + ureter + 2022-08-27 00:00:00 [facility] Plan of Care Planned Activity Planned Date Details Comments Source Diagnostic Test 2022-08-27 urinalysis, [place] Whitmanu nitkoko Pending 00:00:00 dipstick [code = [facility], dipstick] Future Appointment 2023-07-22 Candice Wendie Cheny [facility] 08:00:00 [facility] [address], [place] [address] Encounters Start End Encounter Admission Attending Care Care Encounter Source Date/Time Date/Time Type Type Clinicians Facility Department ID 2022-09-25 Outpatient STLMLC STLMLC [id number] Common 08:11:04 [id number] [facility] 2023-01-28 2023-01-28 [facility] [place] [id number] [place] 00:00:00 00:00:00 April, [facility] 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 2022-10-23 2022-10-23 [facility] 1.2.840.114 [id number] Univers 00:00:00 00:00:00 Berry OLIVEIRA [id number] ity [facility] [id number] Charlie RODRÍGUEZESSIO [phone] Nv dical NAL [facility] BUILDING 2022-10-09 2022-10-09 OFFICE STLMLC STLMLC [id number] Co mmon 00:00:00 00:00:00 VISIT Spirit ESTAB PT - [facility] LEVEL 3 [facility] 2022-09-25 2022-09-25 OFFICE STLMLC STLMLC [id number] Co mmon 00:00:00 00:00:00 VISIT NEW [place] it PT LEVEL 3 - [facility] 2022-09-21 2022-09-21 Outpatient SISSON_C [facility] [id number] [place] 00:00:00 00:00:00 0523 [facility] i [facility] 2022-09-20 2022-09-20 Outpatient SIS[facility]_C [facility] [id number] [place] 00:00:00 00:00:00 0113 Commun i [facility] 2022-09-01 2022-09-01 Outpatient SISSON_C [facility] [id number] [place] 00:00:00 00:00:00 1225 Commun i ty Hosp[facility] Clinics 2022-08-27 2022-08-27 Outpatient SISSON_C 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 2022-08-22 2022-08-22 Outpatient SISSON_C [facility] [id number] 2021 [place] 00:00:00 00:00:00 1215 Commun i ty Hospita [facility] Clinics 2022-08-14 2022-08-14 Outpatient SISSON_C 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, Clinic s [address], [place] [address], [place] MSN, CLINICAL TRIALS DATA COORDINATOR-C [id number] , Ph. 2022-08-05 2022-08-05 Maria C Crowell [facility] 1.2.840.114 [id number] Univers 00:00:00 00:00:00 Jacqueline OLIVEIRA [id number] [facility] [id number] Erickamadou mandel NICCI [phone] [address] 2022-07-30 2022-07-30 Outpatient SISSON_C 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 2022-07-24 2022-07-24 Outpatient SISSON_C [facility] 2021 [place] 00:00:00 00:00:00 1116 Commun i ty Hospita l [facility] 2022-07-11 2022-07-11 Outpatient SISSON_C 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 2022-07-02 2022-07-02 Outpatient SISSON_C [facility] [id number] [place] 00:00:00 00:00:00 1025 Commun i ty Hospita l Clinics 2022-05-16 2022-05-16 [facility] 1.2.840.114 [id number] Univers 00:00:00 00:00:00 Jacqueline OLIVEIRA [id number] ity [id number] [phone] [facility] 231 [facility] 2022-03-14 2022-03-14 [facility] [id number] Univers 09:40:00 09:40:00 JACQUELINE vazquez [facility] 2022-01-08 2022-01-08 Outpatient R YULIYA [facility] [id number] Univers 08:40:00 09:30:34 JACQUELINE vazquez [facility] 2022-01-08 2022-01-08 Office [facility] 1.2.840.114 [id number] Univers 08:40:00 09:30:34 Visit Jacqueline OLIVEIRA [id number] ity [id number] [phone] [facility] 231 [facility] 2022-01-08 2022-01-08 Orders Doctor SHAHID 1.2.840.114 [id number] Univers 00:00:00 00:00:00 Only Unassigned, TRISH [id number] [facility] [id number] Erick as [phone] [address] 2022-01-04 2022-01-04 Rotary Operator 2, Adc Lab [facility] 1.2.840.114 [id number] Univers 09:15:00 09:30:00 Visit Jacqueline Crowell 350.1. 13.10 ity of [facility] [id number] [phone] [facility] 353 [facility] 2022-01-04 2022-01-04 [facility]patient [facility] [id number] Univers 09:15:00 09:15:00 JACQUELINE ity [facility] 2022-01-03 2022-01-03 Telephone [facility] 1.2.840.114 [id number] Univers 00:00:00 00:00:00 Jacqueline A [place] [id number] ity of [place] [facility] [id number] [phone] [facility] 044 [facility] 2021-09-19 2021-09-19 [facility] 1.2.840.114 [id number] Univers 00:00:00 00:00:00 Jacqueline A [place] [id number] ity of [place] [facility] [id number] [phone] [facility] 231 [facility] 2021-07-10 2021-07-10 Office Crowell, [facility] 1.2.840.114 [id number] [facility] 08:03:12 08:38:25 Visit Jacqueline CAD[place] [id number] ity of [id number] [phone] [address] 2021-07-10 2021-07-10 Outpatient R YULIYA [facility] [id number] Univers 08:00:00 08:38:25 JACQUELINE ity [facility] 2021-07-10 2021-07-10 Orders Doctor KEY 1.2.840.114 [id number] Univers 00:00:00 00:00:00 Only Unassigned, TRISH [id number] [facility] [id number] Erick as [phone] [address] 2021-07-06 2021-07-06 [facility] 1.2.840.114 [id number] Univers 00:00:00 00:00:00 Jacqueline A [place] [id number] ity of [place] [facility] [id number] [phone] Nv dical NAL 044 [facility] 2021-04-17 2021-04-17 Refill [facility] 1.2.840.114 [id number] Univers 00:00:00 00:00:00 Jacqueline A [place] [id number] ity of [id number] [phone] Nv dical nal 044 [facility] 2021-03-20 2021-03-20 [facility]Former[facility] 1.2.840.114 [id number] Univers 00:00:00 00:00:00 Jacqueline A [place] [id number] ity of [id number] [phone] Nv dical nal 044 [facility] 2021-02-27 2021-02-27 Telephone [facility] 1.2.840.114 [id number] Univers 00:00:00 00:00:00 Jacqueline A [place] [id number] ity of [id number] [phone] [facility] 231 [facility] 2021-02-13 2021-02-13 [facility] 1.2.840.114 [id number] Univers 00:00:00 00:00:00 Jacqueline Isaacs [place] [id number] ity of [id number] [phone] Nv dical nal 044 [facility] 2021-02-07 2021-02-07 Orders Doctor SHAHID 1.2.840.114 [id number] Univers 00:00:00 00:00:00 Only Unassigned, TRISH [id number] [facility] [id number] Erick as [phone] [address] 2021-01-09 2021-01-09 Rotary Operator 2, Adc Lab [facility] 1.2.840.114 [id number] Univers 10:39:52 10:54:52 Visit Jacqueline Crowell 350.1. 13.10 ity of [id number] [phone] [facility] 353 [facility] 2021-01-09 2021-01-09 Office [facility] 1.2.840.114 [id number] Univers 08:40:01 10:31:06 Visit Jacqueline Oliveira [id number] ity of [id number] [phone] [facility] 231 [facility] 2021-01-09 2021-01-09 Outpatient R YULIYA [facility] [id number] Univers 08:40:00 08:40:00 JACQUELINE ity of [facility] 2020-09-15 2020-09-15 Telephone Crowell, [facility] 1.2.840.114 [id number] Univers 00:00:00 00:00:00 Jacqueline Oliveira [id number] ity of [id number] [phone] [address] 2020-09-15 2020-09-15 [facility] 1.2.840.114 [id number] Univers 00:00:00 00:00:00 Jacqueline [place] [id number] ity of [id number] [phone] [address] 2020-08-25 2020-08-25 [facility] 1.2.840.114 [id number] Univers 00:00:00 00:00:00 Jacqueline [place] [id number] ity of [id number] [phone] [address] 2020-05-22 2020-05-22 Office Crowell, [facility] 1.2.840.114 [id number] Univers 11:19:37 12:00:07 Visit Jacqueline Oliveira [id number] ity of [id number] [phone] [address] 2020-05-22 2020-05-22 [facility] [id number] [facility] 11:20:00 11:20:00 JACQUELINE ity of [facility] 2020-03-08 2020-03-08 [facility] 1.2.840.114 [id number] [facility] 00:00:00 00:00:00 Jacqueline A [place] [id number] ity of [place] [phone] [address] 2020-01-07 2020-01-07 [facility] 1.2.840.114 [id number] Univers 00:00:00 00:00:00 Jacqueline [place] 350.1.13.10 ity of [id number] [phone] [address] 2020-01-03 2020-01-03 [facility] 1.2.840.114 [id number] [facility] 00:00:00 00:00:00 Jacqueline [place] [id number] ity of [place] [phone] [address] 2019-11-30 2019-11-30 [facility] 1.2.840.114 [id number] [facility] 00:00:00 00:00:00 Jacqueline A [place] [id number] ity of [place] [phone] [address] 2019-11-23 2019-11-23 Telemedici Crowell, [facility] 1.2.840.114 [id number] [facility] 10:33:09 10:33:37 ne Visit Jacqueline Oliveira 350.1.13.10 ity of [id number] [phone] Nv dical nal 231 [facility] 2019-11-23 2019-11-23 Outpatient R YULIYA [facility] [id number] Univers 08:40:00 08:40:00 JACQUELINE ity of [facility] 2019-10-28 2019-10-28 [facility] 1.2.840.114 [id number] Univers 00:00:00 00:00:00 Jacqueline Oliveira 350.1.13.10 ity of [id number] [phone] [facility] 231 [facility] 2019-09-24 2019-09-24 [facility]ill [facility] 1.2.840.114 [id number] Univers 00:00:00 00:00:00 Jacqueline Oliveira 350.1.13.10 ity of [id number] [phone] Nv dical nal 044 [facility] 2019-05-25 2019-05-25 Rotary Operator 2, Adc Lab [facility] 1.2.840.114 [id number] Univers 08:52:34 09:07:34 Visit Jacqueline Crowell 350.1. 13.10 ity of [place].2.[place] [phone] [facility] 353 [facility] 2019-05-25 2019-05-25 Letter Doctor SHAHID 1.2.840.114 [id number] Univers 00:00:00 00:00:00 (Out) Unassigned, TRISH [id number] [id number] Erick as [phone] [address] Results Test Description Test Time Test Comments Results Result Comments Source Urinalysis macro (dipstick) panel - Urine 2022-08-14 13:36:0 0 Test Item Value Reference Range Interpretation Comme nts Leukocytes (test code = Leukocytes) Large Nitrite (test code = Nitrite) positive Urobilinogen (test code = Urobilinogen) 2 Protein (test code = Protein) 300 pH (test code = pH) 6.5 Blood (test code = Blood) Large Specific [place] (test code = Specific [place]) 1.020 Ketone (test code = Ketone) Negative Bilirubin (test code = Bilirubin) Negative Glucose (test code = Glucose) Negative Appearance (test code = Appearance) Clear Color (test code = Color) [facility]
[2023-02-25] MEDS ORDERED: PROMETHAZINE INJ 25 MG/ML AMP ONE (16:17)
[2023-02-25] MEDS: Levofloxacin500mg IV 500 MG/100 ML BAG IV SCH (16:19)
[2023-02-25] MEDS: INSULIN -REGULAR HUMAN 50 UNIT/0.5 ML ML SQ SCH ×2 (16:30→21:00)
[2023-02-25] MEDS: D5.45NS W/KCL 20MEQ 1,000 ML IV SCH (16:50)
[2023-02-25 16:57] VITALS: BMI 27.8
--- NOTE | 2023-02-25 17:55 | OP ---
Surgeon: JOSEMANUEL BRUNSON This is an intraoperative consultation and operative note dictation. Reason For Consultation: Colovesical fistula. Indication For Procedure: Mr. Monet presented to the Urology Clinic with recurrent urinary tract i nfections and symptomatic infections. He was evaluated revealing the suspicion for fistula and ultim ately that fistula was demonstrated. He underwent colonoscopy and cystoscopy with bladder biopsies t hat were negative for malignancy, but evidence of staple material from prior mesh hernia repair was n oted within the bladder musculature on biopsy as the likely nidus for the fistulous formation. As a result, he was counseled on the need for management and Dr. Fong planned to take him for a partial colectomy and I would evaluate the bladder for signs of leakage that may require repair. In prepara tion for his procedure, stents were requested. Operative Procedure Note: The patient was consented in the preoperative holding area before being tr ansferred to the operative suite where general anesthesia was induced. He was placed in the lithotom y position, padded and secured to the table appropriately. His genitalia were prepped with Betadine and he was draped in standard fashion. The case was begun using a 21-Slovenian cystoscope to traverse t he urethra and into the bladder with ease. The bladder was decompressed of fluid and urine, and ther e was mild debris within. The ureteral orifices were orthotopic in location, and I was able to easil y cannulate the right ureteral orifice with a tip of a 6-Slovenian ureteral access catheter and navigate d up with ease into the putative renal pelvis leaving it in place as an externalized stent. A simila r procedure was performed at this time on the left side navigating a 6-Slovenian ureteral access cathete r into the collecting system also leaving it externalized as a stent. An 18-Slovenian urethral Amaya ca theter was in place via his urethra into his bladder with ease with 50 cc of sterile water in the bal loon, and a [employer] Tree adapter was used to internalize the stent into the drainage hub of the cat heter. Steri-Strips were used to hold them in place. I then turned the case over to Dr. Fong for the partial colectomy. Once he completed his resection and anastomosis, I then returned at the end of the case and retrograde instilled approximately 400 cc of methylene blue infused normal saline to distend the bladder visibly as observed laparoscopically. There was absolutely no evidence of any le akage of urine or extravasation into the intraperitoneal space. As a result, no extensive repair of the bladder was indicated, and the fluid was evacuated from within his bladder and the externalized u reteral stents were removed. The catheter was left to gravity drainage and he was awakened from gene ral anesthesia after completion of the case with Dr. Fong. Complications: None. Discharge Disposition: He should keep the urethral Amaya catheter for at least 10 up to 14 days prio r to removal and voiding trial, which may be accomplished in the Urology Clinic. Ideally, we would p rovide him with a prescription for either ciprofloxacin or Bactrim to be taken for 3 days to start 1 day prior to the scheduled voiding trial. Subsequent followup may be established approximately 3-6 m onths later to ensure clearance of any infection and absence of recurrence of symptoms of the UTI or fistula. ESTEBAN/BARRERA Voice ID: [id number] Report ID: [id number]
[2023-02-25] MEDS: HYDROMORPHONE HCL 1 MG/ML INJ IV PRN ×2 (18:56→21:22)
--- NOTE | 2023-02-25 19:04 | OP ---
Date of Procedure: 02/25/2023 Surgeon: Jason Fong MD, Preoperative Diagnosis: Sigmoid diverticulitis with colovesical fistula. Postoperative Diagnosis: Sigmoid diverticulitis with colovesical fistula. Procedures Performed: 1.Laparoscopic sigmoid colectomy with primary intracorporeal anastomosis. 2.Laparoscopic takedown of colovesical fistula. Anesthesia: General endotracheal plus local with 0.25% Marcaine. Estimated Blood Loss: Less than 50 cc. Specimens: 1.Sigmoid colon. 2.Donuts from EEA stapler/anastomosis. Findings: There was severe left lower quadrant adhesions from the sigmoid colon to the bladder with an approximately 4 cm segment of sigmoid colon that had thickened inflammation and stenosis, which wa s diagnosed and confirmed by both colonoscopy and laparoscopic examination today. Colonoscopy perfor med. Prior laparoscopy confirmed today. Complications: None. Drains: 10 mm flat SHAKIR drain placed in the pelvic fossa. Disposition: The patient was transferred to the recovery room in good condition. Procedure In Detail: After informed consent was obtained, the patient was brought to the operating r oom, prepped and draped in the usual sterile fashion. He was in modified lithotomy position. After adequate anesthesia was achieved, I asked Dr. Arnol Sierra, urologist to come and place stents in t he patient's ureters at the early aspect of the operation. At this point, Dr. Sierra completed his stent placement. Please see Dr. Sierra' note for full details regarding his aspect and involvement in this case and operation. After Amaya catheter and ureteral stents were placed by Dr. Sierra, the patient was re-prepped and draped in the usual sterile fashion and remained in modified lithotomy po sition. Anesthesia was maintained throughout. At this point, I made a supraumbilical incision down through subcutaneous tissues with a 15 blade. I then used a 5 mm 0-degree optical trocar to introduc e pneumoperitoneum into the abdomen under direct visualization without incident or complication. Ins ufflation was obtained to 15 mmHg at this time. There was no injury to vital structures upon entry i nto the abdomen. At this point, I inspected the abdomen and found no obvious injuries and I opted to continue with the procedure at this point. I placed an additional trocar at this point in the right lower quadrant. An 11 mm trocar placed under direct vision without evidence of complication. A rig ht mid abdominal 12 mm trocar was also placed under direct vision without evidence of complication. The umbilical trocar was then upsized to a 12 mm under direct visualization without evidence of compl ication. A right upper quadrant 5 mm trocar was placed under direct vision without evidence of compl ication and a left lower quadrant 5 mm trocar was placed under direct visualization without evidence of complication. At this point, the patient was positioned slightly head down and slightly rotated t oward the right side. I then grabbed the omentum and draped it over the liver and pulled the transve rse colon cranially at this point. I then swept the small bowel toward the right upper quadrant from the mesenteric root at this point visualizing the angle of Treitz. At this point, I opened this sli ghtly with electrocautery to visualize the inferior mesenteric vein. At this point, the inferior mes enteric vein was protected throughout. I dissected only minimally under the mesenteric vein so that if length would be necessary, I would be able to come back to this point and continue the dissection if a splenic mobilization was required, which was not necessary. At this point, after opening this w indow, I continued down to the pelvis at this point inspecting the lateral and medial aspects of the colon. An obvious infected segment of sigmoid colon, which had been diagnosed preoperatively by colo noscopy showing an area of stenosis was visualized with laparoscopic examination at this point with s ignificant adhesions to the anterior abdominal wall as well as to the bladder. At this point, I bega n with a combination of sharp dissection predominantly and blunt dissection dissecting the sigmoid an d affected colon off the bladder where a fistula was noted to be present. This adhesiolysis took linda roximately an hour and a half to 2 hours of meticulous dissection removing the sigmoid colon and affe cted segments off the bladder surface. The Amaya catheter remained in place throughout the procedure . After this was mobilized adequately, I then began a medial mobilization of the sigmoid colon from medial to lateral aspect. I scored the peritoneum beyond the takeoff of the left colic artery and he morrhoidal artery sparing the hemorrhoidal throughout. I then went and isolated specific sigmoidal b ranches, which were feeding a segment of a bowel to be dissected. After I scored and skeletonized th krystian structures using a combination of LigaSure predominantly, I left vascular pedicles intact at this point. I then went down to the pelvis and found the flaying of the tenia to find the rectosigmoid j unction. I went just beyond the sigmoid aspect into the rectum to the upper third of the rectum at t his point. I placed clips as anatomic markings in this nice soft pliable part of the rectum to radha carmela the distal aspect of the dissection. I then went back beyond looking at the descending colon an d sigmoid colon and found an area of nice soft pliable descending colon and also placed double clips at this point on the epiploic appendages to demarcate the proximal area. The patient had good redund cam of his colon at this point and the colon could be swept down almost to the level of the distal t ransection liss using simple gentle traction at this point and positioning. The patient was placed s lightly in steep Trendelenburg position rotated slightly more towards the right side up and I continu ed taking down the area of the distal transection line at this point staying close to the rectal wall . Hemorrhoidal vessels were spared as they were encountered after I cleaned off the posterior aspect of the rectal stump to be transected. I also cleared off the peritoneal side slightly on the medial and lateral sides of the rectal stump to be transected. At this point, Endo MARIO 60 stapler with Tri -Staple technology was brought in through the right lower quadrant trocar site. It was fired 2 times perpendicular to the rectum at this point, which was previously demarcated with good hemostasis. I grasped the rectal stump and found to be quite well vascularized at this point with obvious vessels e ntering just distal to the anastomosis. The tissue appeared pink and viable without significant adip ose tissue surrounding. There was no injury to nerves throughout the procedure as dissection stayed close to the colonic wall throughout. I then proceeded to take down the white line of [place]t on the l ateral dissection to mobilize the sigmoid colon and descending colon in a lateral direction at this p oint meeting up with my medial dissection. At this point, I dissected along all the way up to the sp lenic flexure, but not include a splenic flexure by taking down the white line with simple electrocau bryce. At this point, I visualized the portion of the colon and it was easy to divide the specific si gmoidal branches, which were feeding clip staying close to the wall of the sigmoid colon at this poin t. After this was completed, I opted to exteriorize the specimen. There was a small incision in the left lower quadrant after ensuring a tension-free anastomosis could be easily achieved at this point . At this point, I then made a small incision extending the 5 mm 0-degree trocar site in the left lo wer quadrant with a 15 blade down to subcutaneous tissues. Electrocautery was used to dissect down t o the abdominal wall. I spread the rectus muscles at this point and ultimately entered the peritoneu m. An Real wound protector was placed at this point. I then placed a GelPort in place at this poi nt and grasped the distal aspect of the transected colon. The GelPort was removed and the colon was brought out easily through this area. I then palpated the colon and found a soft pliable rectum to b e on the distal aspect. I then palpated all the way nice and soft pliable well-vascularized descendi ng colon and made an additional cleansing of small adipose tissue in this area. I transected the spe cimen at this point with a TA60 stapler with good approximation of tissues. At this point, my assist ant, Shreya Cedeno went below and sized the patient's rectum using a Sizer to size the EEA stapler. EEA 29 was decided upon at this point. I then verified this to be adequate at this time. I then re -prepped and scrubbed into the field. The divided colon was sent off for pathologic examination at t his point and I then applied the pursestring device to the residual colon at this point and deployed the pursestring device at this point. I then cut off the distal aspect of the staple line. I placed the anvil from the EEA power 29 stapler into the colotomy at this point and tied it in a pursestring type fashion and trimmed off any residual fat to allow for good colonic wall to rectal wall connecti on. At this point, the area was inspected. The anvil and colon were put back into the abdominal com partment and the GelPort was applied and pneumoperitoneum was restarted at this point. Me and my ass istance all re-scrubbed at this point and re-entered the surgical field. I then inspected the anvil and found to be in good orientation. We followed the tenia to ensure no twisting or torsion were per formed throughout and there were no ureteral or other vascular injuries or neurologic injuries throug hout the procedure as the dissection continued above Gerota fascia along the white line of Toldt fasc ia and Gerota fascia were without entering at any point. I then had my data control assistant, Shreya Cedeno applied the EEA power 29 stapler up in the rectum and I had her centrally positioned the stapl er at this point. I had her deployed the spike just superior to the staple line while I held orienta tion to ensure a perpendicular spread of the rectal stump at this point. After spike was deployed, I placed the anvil and ensured orientation was proper at this point making sure no adipose or other ti ssues were included. We then held pressure for approximately 30 seconds allowing the edema to go alie y from before firing the EEA stapler. At this point, the EEA stapler was fired with good seal and th e EEA stapler was removed in a gentle rocking fashion. At this point, I inspected the anastomosis an d found to be good and without tension easily, nice and redundant at this point. I then placed irrig ation into the pelvis, held pressure across the descending colon, and air was instilled into the rect um and the area was leak tested. There was no leakage or bleeding throughout the procedure and the a terry was tested several times without a single bubble being emanated from the anastomosis. At this po int, I suctioned out the remaining effluent. My data control assistant, Shreya Cedeno then went and inspected michael th donuts and visually showed me that both donuts were intact on the EEA stapler at this point ensuri ng a good anastomosis. At this point, I asked Dr. Sierra to return and inspect the bladder. At thi s point, we instilled methylene blue 500 cc into the bladder under gravity. At this point, I inspect ed the bladder wall. There was no methylene blue coming through or any obvious bladder injury at thi s point after instillation of the methylene blue and it was drained out at this point. I then parish t in a 10 mm flat SHAKIR drain. I placed it in the rectum near the anastomosis and brought it up near th e bladder in anterior sweep type fashion. I then grasped and held the omentum while the patient was positioned back in neutral position. I then brought the omentum down to the pelvis also wrapping the anastomosis and keeping the colon completely from the bladder with this vascularized pedic le of omentum at this point. At this point, the repair and surgical intra-abdominal portions were op timal at this time. No hemostatic maneuvers were required. I then closed all of the 11 and 12 mm tr ocar sites using a Josselyn suture passer with 0 Vicryl in an interrupted fashion with good ap proximation of tissues. The drain was secured with a 2-0 nylon suture through a separate stab incisi on in the left mid abdomen. At this point, I then removed the last 5 mm trocar and removed pneumoper itoneum at this point and removed the GelPort and Real wound protector. I then grasped the edges o f the rectus fascia, anterior rectus sheath and elevated using Ruperto clamps and closed the left lowe r quadrant incision with a 0 looped PDS in a running fashion with good approximation of the tissues t aking both the anterior rectus sheath as well as the peritoneum under vision at this point. After th is was closed in its entirety, all skin incisions were copiously irrigated and closed with 4-0 Monocr yl in a running fashion and Dermabond placed over top. The patient tolerated the procedure well without evidence of complication and transferred to PACU in good condition. All counts were correct at the end of the case. CARLOS/BARRERA Voice ID: [id number] Report ID: [id number]
[2023-02-25] MEDS: KCL 20 MEQ/100 mL IVPB 20 MEQ/100 ML BAG IV SCH ×2 (19:35→21:19)
[2023-02-25] MEDS: HYDROCODONE/APAP 7.5/325 MG TAB PO PRN (19:42)
[2023-02-26] MEDS: HYDROMORPHONE HCL 1 MG/ML INJ IV PRN ×5 (01:12→14:31)
[2023-02-26] MEDS: HYDROCODONE/APAP 7.5/325 MG TAB PO PRN ×3 (03:23→14:25)
[2023-02-26] MEDS: D5.45NS W/KCL 20MEQ 1,000 ML IV SCH ×4 (04:05→22:00)
[2023-02-26 04:44] LABS: Absolute Lymphocytes (CBC) 1.4 K/uL (0.7-4.9); Hematocrit 31.9 % (39.6-49.0); Lymphocytes % 15.9 % (15.3-44.8); MCV 95.4 fL (80-100); MPV 8.7 fL (7.6-11.3); RBC Red Blood Cell Count 3.34 M/uL (4.33-5.43)
[2023-02-26 05:08] LABS: Magnesium 2.1 mg/dL (1.6-2.4); Phosphorus 2.4 mg/dL (2.5-4.9)
[2023-02-26] MEDS: INSULIN -REGULAR HUMAN 50 UNIT/0.5 ML ML SQ SCH ×4 (07:22→21:00)
[2023-02-26] MEDS: POTASS/SODIUM PHOSPHATE 1 PKT POWD.PACK PO SCH ×3 (07:23→09:52)
[2023-02-26] MEDS: ENOXAPARIN 40 MG/0.4 ML SQ SCH (07:23)
[2023-02-26] MEDS ORDERED: HYDROCODONE/APAP 7.5/325 MG TAB PO ONE (07:34)
[2023-02-26] MEDS ORDERED: HOME MED 1 EA UNK (Omeprazole [Omeprazole] 20 MG Capsule.Dr) PO SCH (09:00)
[2023-02-26] MEDS: CETIRIZINE HCL 5 MG TABLET PO SCH (09:50)
[2023-02-26] MEDS: VITAMIN D 5,000 UNIT CAP PO SCH (09:50)
[2023-02-26] MEDS: PANTOPRAZOLE 40MG TABLET PO SCH (09:50)
[2023-02-26] MEDS: TAMSULOSIN 0.4 MG SR CAP PO SCH (09:50)
[2023-02-26] MEDS: MULTIVITAMIN TAB PO SCH (09:51)
[2023-02-26] MEDS: CYANOCOBALAMIN 1,000 MCG TAB PO SCH (09:51)
--- NOTE | 2023-02-26 10:50 | P.CNS ---
Date of Consult: 02/26/23 Reason for Consult: Medical management Requesting Physician: Jason Fong Chief Complaint: Colovesicular fistula History of Present Illness: Patient is a 57-year-old male with a past medical history significant for hypertension who was recently diagnosed with a colovesicular fistula. Patient underwent a colonoscopy and cystoscopy with bladder biopsy. Patient was scheduled for a sigmoid colectomy with surgeon. Patient successfully had a sigmoid colectomy and resection of colovesicular fistula. During the procedure patient was seen by urologist who placed stents in the patient's ureters and inserted a Amaya catheter. During the recovery phase patient had some runs of V. tach. Patient currently reports abdominal pain rated as 5/10 in severity and described as aching in quality. Patient denies any other signs and symptoms. Symptoms are aggravated or relieved by nothing. Patient currently resting in bed in ICU. Patient noted with a SHAKIR drain. - Past Medical/Surgical History Diabetic: No -: HTN -: frequent UTI over last year -: colonoscopy -: cystoscopy with biopsies - Social History Smoking Status: Never smoker Alcohol use: Yes CD- Drugs: No Caffeine use: Yes Place of Residence: Home <Tracy Joseph - Last Filed: 02/26/23 10:44> <Petey Goodman - Last Filed: 02/26/23 17:08> Allergies No Known Allergies Allergy (Verified 02/25/23 07:48) Home Medications: Cetirizine HCl [Allergy] 10 mg PO DAILY 01/01/23 Cholecalciferol (Vitamin D3) [D3-5000] 125 mcg PO DAILY 01/01/23 Ibuprofen [Ibu] 600 mg PO DAILY PRN 01/01/23 Lisinopril [Zestril] 40 mg PO DAILY 01/01/23 Mecobalamin [B12 Active] 1 tab PO DAILY 01/01/23 Multivitamin 1 each PO DAILY 01/01/23 Nitrofurantoin Macrocrystal [Macrodantin] 100 mg PO BEDTIME 01/01/23 Omeprazole 20 mg PO DAILY 01/01/23 Tamsulosin [Flomax*] 0.4 mg PO DAILY 01/01/23 Zolpidem Tartrate 10 mg PO BEDTIME 01/01/23 Review of Systems General: Unremarkable Eyes: Unremarkable ENT: Unremarkable Respiratory: Unremarkable Cardiovascular: Unremarkable Gastrointestinal: Abdominal Pain Genitourinary: Unremarkable Musculoskeletal: Unremarkable Integumentary: Unremarkable Neurological: Unremarkable Lymphatics: Unremarkable <Tracy Joseph - Last Filed: 02/26/23 10:44> Physical Examination Temp Pulse Resp BP Pulse Ox 97.7 F 66 17 114/62 91 02/26/23 08:00 02/26/23 08:00 02/26/23 07:43 02/26/23 08:00 02/26/23 08:00 General: Alert, In no apparent distress, Oriented x3, Cooperative HEENT: Atraumatic, PERRLA, Mucous membr. moist/pink, EOMI, Sclerae nonicteric Neck: Supple, 2+ carotid pulse no bruit, No LAD, Without JVD or thyroid abnormality Respiratory: Clear to auscultation bilaterally, Normal air movement Cardiovascular: No edema, Normal S1 S2, Irregular heart rate/rhythm Capillary refill: <2 Seconds Gastrointestinal: Normal bowel sounds, Soft and benign, No tenderness Musculoskeletal: No clubbing, No swelling, Tenderness Integumentary: No rashes, No breakdown, Other (Abdominal incision ) Neurological: Normal gait, Normal speech, Normal tone, Normal affect Lymphatics: No axilla or inguinal lymphadenopathy Laboratory Data (last 24 hrs) 02/26/23 04:27: Sodium 139, Potassium 4.0 D, BUN 12, Creatinine 0.74, Glucose 135 H, Phosphorus 2.4 L, Magnesium 2.1 02/26/23 04:27: WBC 8.50, Hgb 10.6 L, Hct 31.9 L, Plt Count 178 02/25/23 19:04: Potassium 3.5 <Tracy Joseph E - Last Filed: 02/26/23 10:44> Temp Pulse Resp BP Pulse Ox 98 F 67 11 L 104/60 100 02/26/23 16:00 02/26/23 16:00 02/26/23 16:00 02/26/23 16:00 02/26/23 16:00 Laboratory Data (last 24 hrs) 02/26/23 12:32: Hgb 10.3 L, Hct 31.3 L 02/26/23 04:27: Sodium 139, Potassium 4.0 D, BUN 12, Creatinine 0.74, Glucose 135 H, Phosphorus 2.4 L, Magnesium 2.1 02/26/23 04:27: WBC 8.50, Hgb 10.6 L, Hct 31.9 L, Plt Count 178 02/25/23 19:04: Potassium 3.5 <Petey Goodman - Last Filed: 02/26/23 17:08> Conclusions/Impression: --Sigmoid Diverticulitis with [place]-Vesicle Fistula. Surgeon and urologist on board. S/P Laparoscopic Sigmoid Colectomy with primary anastomosis and Takedown of Colovesicle Fistula. SHAKIR drain draining serosanguineous fluid. Status post ureteral stents and Amaya catheter placement. Continue antibiotics. Patient tolerating clear liquid diet. Further management per consultants. --Acute pain. We will manage pain with current pain medication regimen. --V. tach. Some runs of V. tach's noted. Repeat EKG pending. Telemetry to monitor for any malignant arrhythmia. -- Anemia of chronic disease. H&H stable. We will continue to monitor hemoglobin and transfuse if less than 7.0. --BPH. Continue Flomax. --GERD. Continue home medication. --Hypertension. Stable. Continue home medication. --Insomnia. Continue home medication. --History of recurrent UTIs. Continue antibiotics. --DVT prophylaxis with Lovenox subQ. Physician Review: Patient Assessed, Agree with Above Assessment and Plan Critical Care: No <Tracy Joseph - Last Filed: 02/26/23 10:44> Conclusions/Impression: Patient seen and examined on rounds this morning. Overnight had 1 run of 15 beat vtach. Asymptomatic. No further episodes no history of arrhythmia, no palpitations Pre-op EKG with borderline high QTc patient receiving levaquin, potential for prolongation of QTc recheck EKG this morning, no change in QTc electrolytes WNL hgb slightly lower, with slight increase in red/bloody output of SHAKIR drain, repeat h/h this afternoon monitor on telemetry recommend avoidance of possible QT prolonging medications no further cardiac workup at this time will continue to monitor / follow ELOM Goodman MD Time Spent Managing Pts care (In Minutes): 60 <Petey Goodman - Last Filed: 02/26/23 17:08>
[2023-02-26 12:51] LABS: Hematocrit 31.3 % (39.6-49.0)
[2023-02-26] MEDS: Levofloxacin500mg IV 500 MG/100 ML BAG IV SCH (17:09)
[2023-02-26] MEDS: HYDROMORPHONE HCL 2 MG/ML inj IV PRN ×2 (18:08→21:20)
--- NOTE | 2023-02-26 19:19 | EKG ---
Test Date: 2023-02-21 Test Time: 15:11:20 Entry Level Electrical Engineer: WENDIE MEASUREMENT RESULTS: Intervals: Rate: 67 NV: 200 QRSD: 160 QT: 446 QTc: 471 [place]: P: 62 NV: 200 QRS: -47 T: 56 INTERPRETIVE STATEMENTS: Normal sinus rhythm Right bundle branch block Left anterior fascicular block Bifascicular block Abnormal ECG Compared to ECG 01/01/2023 13:09:35 No significant changes Electronically Signed On 02-26-23 19:12:55 CDT by Carlos Samuel
[2023-02-26] MEDS: ZOLPIDEM TARTRATE 10 MG TABLET PO SCH (21:23)
[2023-02-27] MEDS: HYDROMORPHONE HCL 2 MG/ML inj IV PRN ×6 (00:27→17:55)
[2023-02-27] MEDS: D5.45NS W/KCL 20MEQ 1,000 ML IV SCH ×3 (00:31→14:12)
[2023-02-27 03:38] LABS: Hematocrit 29.8 % (39.6-49.0); Lymphocytes % 13.2 % (15.3-44.8); MCV 95.4 fL (80-100); MPV 8.8 fL (7.6-11.3); RBC Red Blood Cell Count 3.12 M/uL (4.33-5.43)
[2023-02-27 03:59] LABS: Phosphorus 2.6 mg/dL (2.5-4.9); Potassium 4.1 mEq/L (3.5-5.1)
--- NOTE | 2023-02-27 06:54 | P.PN ---
Date of Service: 02/27/23 Subjective: feeling better today no further episodes of v. tach on telemetry no palpitations no nausea / vomiting / diarrhea afebrile ROS: 10 point ROS as noted above, otherwise negative Physical Exam: GEN: Alert, oriented, NAD, in place HEENT: Normal conjunctiva, sclera anicteric CV: Regular rate and rhythm, no edema Pulm: Nonlabored respirations on room air, clear bilaterally ABD: Soft, nontender, nondistended, SHAKIR drain in place Neuro: Normal speech, normal affect in place vitals reviewed Problem List: Sigmoid Diverticulitis with [place]-Vesicle Fistula V. tach. 1 run Anemia of chronic disease BPH GERD Hypertension Insomnia History of recurrent UTIs Sigmoid Diverticulitis with [place]-Vesicle Fistula, now s/p Laparoscopic Sigmoid Colectomy with primary anastomosis and Takedown of Colovesicle Fistula (02/25) Dr. Fong and Rigo following s/p Laparoscopic Sigmoid Colectomy with primary anastomosis and Takedown of Colovesicle Fistula (02/25) SHAKIR drain draining serosanguineous fluid. s/p ureteral stents and catheter placement (02/25) do not remove for [address] Fong Continue levaquin (02/25-) per surgery V. tach. had 1 run of 15 beat vtach 02/25. Asymptomatic. No further episodes no history of arrhythmia, no palpitations Pre-op EKG with borderline high QTc patient receiving levaquin, potential for prolongation of QTc rechecked EKG 02/26, no change in QTc monitor on telemetry avoid any further possible QT prolonging medications Anemia of chronic disease. H/H stable BPH. Continue Flomax. GERD. Continue home medication. Hypertension. Stable. Continue home medication. Insomnia. Continue home medication. History of recurrent UTIs. Continue antibiotics. VTE: Lovenox Code: Full Dispo: home, few days, per surgery
[2023-02-27] MEDS: INSULIN -REGULAR HUMAN 50 UNIT/0.5 ML ML SQ SCH ×4 (07:30→21:00)
[2023-02-27] MEDS: CYANOCOBALAMIN 1,000 MCG TAB PO SCH (07:54)
[2023-02-27] MEDS: ENOXAPARIN 40 MG/0.4 ML SQ SCH (07:54)
[2023-02-27] MEDS: MULTIVITAMIN TAB PO SCH (07:55)
[2023-02-27] MEDS: VITAMIN D 5,000 UNIT CAP PO SCH (07:55)
[2023-02-27] MEDS: TAMSULOSIN 0.4 MG SR CAP PO SCH (07:55)
[2023-02-27] MEDS: lisinopriL 20 MG TAB PO SCH (07:55)
[2023-02-27] MEDS: CETIRIZINE HCL 5 MG TABLET PO SCH (07:55)
[2023-02-27] MEDS: HYDROCODONE/APAP 7.5/325 MG TAB PO PRN ×2 (07:55→21:08)
[2023-02-27] MEDS: PANTOPRAZOLE 40MG TABLET PO SCH (07:55)
[2023-02-27] MEDS: Levofloxacin500mg IV 500 MG/100 ML BAG IV SCH (16:04)
--- NOTE | 2023-02-27 17:43 | EKG ---
Test Date: 2023-02-26 Test Time: 09:05:43 Manager Equity: MEASUREMENT RESULTS: Intervals: Rate: 71 [place]: 170 QRSD: 162 QT: 426 QTc: 462 [place]: P: 71 AK: 170 QRS: -42 T: 24 INTERPRETIVE STATEMENTS: Normal sinus rhythm Left axis deviation Right bundle branch block Minimal voltage criteria for LVH, may be normal variant Abnormal ECG Compared to ECG 02/21/2023 15:11:20 Left-axis deviation now present Left ventricular hypertrophy now present Left anterior fascicular block no longer present Bifascicular block no longer present Electronically Signed On 02-27-23 17:40:06 CDT by Carlos Samuel
[2023-02-27] MEDS: ZOLPIDEM TARTRATE 10 MG TABLET PO SCH (21:08)
[2023-02-28] MEDS: HYDROMORPHONE HCL 2 MG/ML inj IV PRN ×3 (02:07→17:46)
[2023-02-28] MEDS: D5.45NS W/KCL 20MEQ 1,000 ML IV SCH ×3 (02:08→14:17)
[2023-02-28 06:12] LABS: Absolute Lymphocytes (CBC) 1.1 K/uL (0.7-4.9); Lymphocytes % 16.4 % (15.3-44.8); RBC Red Blood Cell Count 3.06 M/uL (4.33-5.43)
[2023-02-28 06:23] LABS: Magnesium 2.1 mg/dL (1.6-2.4); Phosphorus 2.6 mg/dL (2.5-4.9); Potassium 3.7 mEq/L (3.5-5.1)
--- NOTE | 2023-02-28 06:58 | P.PN ---
Date of Service: 02/28/23 Subjective: feeling better, +ambulating around the floor remains in normal sinus rhythm, no further episodes of v. tach abdominal pain slowly improving no new / worsening problems ROS: 10 point ROS as noted above, otherwise negative Physical Exam: GEN: Alert, oriented, NAD, in place HEENT: Normal conjunctiva, sclera anicteric CV: Regular rate and rhythm, no edema Pulm: Nonlabored respirations on room air, clear bilaterally ABD: Soft, nontender, nondistended, SHAKIR drain in place Neuro: Normal speech, normal affect in place vitals reviewed Problem List: Sigmoid Diverticulitis with [place]-Vesicle Fistula V. tach - 1 run Anemia of chronic disease BPH GERD Hypertension Insomnia History of recurrent UTIs Sigmoid Diverticulitis with [place]-Vesicle Fistula, now s/p Laparoscopic Sigmoid Colectomy with primary anastomosis and Takedown of Colovesicle Fistula (02/25) Dr. Fong and Rigo following s/p Laparoscopic Sigmoid Colectomy with primary anastomosis and Takedown of Colovesicle Fistula (02/25) SHAKIR drain draining serosanguineous fluid. s/p ureteral stents and catheter placement (02/25) do not remove for [address] Fong Continue levaquin (02/25-) per surgery PRN pain meds V. tach. had 1 run of 15 beat vtach, monomoprhic on 02/25. Asymptomatic. No further episodes no history of arrhythmia, no palpitations Pre-op EKG with borderline high QTc patient receiving levaquin, potential for prolongation of QTc rechecked EKG 02/26, no change in QTc monitor on telemetry avoid any further possible QT prolonging medications' antibiotics discontinued no further workup needed at this time Anemia of chronic disease. H/H stable BPH. Continue Flomax. GERD. Continue home medication. Hypertension. Stable. Continue home medication. Insomnia. Continue home medication. History of recurrent UTIs. Continue antibiotics. VTE: Lovenox Code: Full Dispo: home per surgery
[2023-02-28] MEDS: INSULIN -REGULAR HUMAN 50 UNIT/0.5 ML ML SQ SCH (07:30)
[2023-02-28] MEDS: lisinopriL 20 MG TAB PO SCH ×2 (07:41→07:42)
[2023-02-28] MEDS: ENOXAPARIN 40 MG/0.4 ML SQ SCH (07:41)
[2023-02-28] MEDS: HYDROCODONE/APAP 7.5/325 MG TAB PO PRN (07:41)
[2023-02-28] MEDS: CYANOCOBALAMIN 1,000 MCG TAB PO SCH (07:42)
[2023-02-28] MEDS: TAMSULOSIN 0.4 MG SR CAP PO SCH (07:42)
[2023-02-28] MEDS: PANTOPRAZOLE 40MG TABLET PO SCH (07:42)
[2023-02-28] MEDS: VITAMIN D 5,000 UNIT CAP PO SCH (07:42)
[2023-02-28] MEDS: CETIRIZINE HCL 5 MG TABLET PO SCH (07:43)
[2023-02-28] MEDS: MULTIVITAMIN TAB PO SCH (07:43)
[2023-02-28] MEDS ORDERED: POTASSIUM CL SA 10 MEQ TAB PO ONE (09:00)
--- NOTE | 2023-02-28 09:11 | P.PN ---
Subjective Date of Service: 02/27/23 Chief Complaint: Colovesicular fistula Subjective: Improving (Patient passing gas, having several bowel movements, tolerating liquid diet) Physical Examination - Vital Signs Temperature: 98.5 F Blood Pressure: 163/77 Pulse: 74 Respirations: 16 Pulse Ox (%): 96 - Physical Exam General: Alert, In no apparent distress, Cooperative Respiratory: Clear to auscultation bilaterally, Normal air movement Cardiovascular: Regular rate/rhythm Gastrointestinal: Other (soft, mild appropriate TTP, ND, incisions clean, SHAKIR serosang) Musculoskeletal: No clubbing, No swelling, No tenderness, No warmth Integumentary: No rashes, No breakdown, No tenderness/swelling Neurological: Normal speech, Normal affect Urinary: Amaya catheter - Studies Laboratory Data (last 24 hrs) 02/28/23 05:08: Sodium 140, Potassium 3.7, BUN 8, Creatinine 0.63 L, Glucose 116 H, Phosphorus 2.6, Magnesium 2.1 02/28/23 05:08: WBC 6.90, Hgb 9.8 L, Hct 29.0 L, Plt Count 156 Assessment And Plan - Plan Patient is a 57-year-old man status post laparoscopic sigmoid colectomy with takedown of colovesical fistula and primary intraparietal anastomosis -Continue current pain medication regimen with p.o. [place] and IV Dilaudid for breakthrough -Continue incentive spirometry and pulmonary toilet -Patient had short run of V. tach which was self-limited and asymptomatic, Dr. Goodman consulted to evaluate -Continue nutrition supplementation with clear liquid and advance to soft diet during admission -Continue IV fluid supplementation -Continue electrolyte replacement protocol -Lovenox given -Wean off antibiotics -Transition to p.o. pain meds as tolerated -Ambulate with assist -Abdominal binder to remain in place -SHAKIR drain teaching -Anticipate discharge in the next 2 days -Continue medical management per Dr. Goodman Physician Review: Patient Assessed, Agree with Above Assessment and Plan
--- NOTE | 2023-02-28 09:12 | P.PN ---
Subjective Date of Service: 02/26/23 Chief Complaint: Colovesicular fistula Subjective: Improving Physical Examination - Vital Signs Temperature: 98.5 F Blood Pressure: 163/77 Pulse: 74 Respirations: 16 Pulse Ox (%): 96 - Physical Exam General: Alert, In no apparent distress, Cooperative HEENT: Mucous membr. moist/pink Neck: Supple Respiratory: Clear to auscultation bilaterally, Normal air movement Cardiovascular: Regular rate/rhythm Gastrointestinal: Other (soft, mild appropriate TTP, ND, incisions clean, SHAKIR serosang) Musculoskeletal: No clubbing, No swelling, No tenderness, No warmth Integumentary: No rashes, No breakdown, No tenderness/swelling, No erythema, No warmth Neurological: Normal speech, Normal affect Urinary: Amaya catheter - Studies Laboratory Data (last 24 hrs) 02/28/23 05:08: Sodium 140, Potassium 3.7, BUN 8, Creatinine 0.63 L, Glucose 116 H, Phosphorus 2.6, Magnesium 2.1 02/28/23 05:08: WBC 6.90, Hgb 9.8 L, Hct 29.0 L, Plt Count 156 Assessment And Plan - Plan Patient is a 57-year-old man status post laparoscopic sigmoid colectomy with takedown of colovesical fistula and primary intraparietal anastomosis -Continue current pain medication regimen with p.o. [place] and IV Dilaudid for breakthrough -Continue incentive spirometry and pulmonary toilet -Patient had short run of V. tach which was self-limited and asymptomatic, Dr. Goodman consulted to evaluate -Continue nutrition supplementation with clear liquid and advance to soft diet during admission -Continue IV fluid supplementation -Continue electrolyte replacement protocol -Lovenox given -Wean off antibiotics -Transition to p.o. pain meds as tolerated -Ambulate with assist -Abdominal binder to remain in place -SHAKIR drain teaching -Anticipate discharge in the next 2 days -Continue medical management per Dr. Goodman -Keep Amaya catheter for 2 weeks Physician Review: Patient Assessed, Agree with Above Assessment and Plan
[2023-02-28] MEDS: HYDROCODONE/APAP 10/325 TAB PO PRN ×2 (14:18→21:39)
[2023-02-28] MEDS: ZOLPIDEM TARTRATE 10 MG TABLET PO SCH (21:26)
[2023-03-01] MEDS: D5.45NS W/KCL 20MEQ 1,000 ML IV SCH ×3 (03:42→15:29)
[2023-03-01] MEDS: HYDROCODONE/APAP 10/325 TAB PO PRN ×5 (03:42→23:59)
[2023-03-01 06:38] LABS: Absolute Lymphocytes (CBC) 0.7 K/uL (0.7-4.9); Hematocrit 29.4 % (39.6-49.0); MCV 95.3 fL (80-100); MPV 8.6 fL (7.6-11.3); RBC Red Blood Cell Count 3.09 M/uL (4.33-5.43)
--- NOTE | 2023-03-01 06:50 | P.PN ---
Date of Service: 03/01/23 Subjective: doing okay, stable remains in sinus rhythm abdominal pain is improving slowly day by day ROS: 10 point ROS as noted above, otherwise negative Physical Exam: GEN: Alert, oriented, NAD, in place HEENT: Normal conjunctiva, sclera anicteric CV: Regular rate and rhythm, no edema Pulm: Nonlabored respirations on room air, clear bilaterally ABD: Soft, nontender, nondistended Neuro: Normal speech, normal affect in place vitals reviewed Problem List: Sigmoid Diverticulitis with [place] Fistula s/p lap sigmoid colectomy V. tach - 1 run Anemia of chronic disease BPH GERD Hypertension Insomnia History of recurrent UTIs Sigmoid Diverticulitis with [place] Fistula, now s/p Laparoscopic Sigmoid Colectomy with primary anastomosis and Takedown of Colovesicle Fistula (02/25) Dr. Fong and Rigo following s/p Laparoscopic Sigmoid Colectomy with primary anastomosis and Takedown of Colovesicle Fistula (02/25) SHAKIR drain draining serosanguineous fluid. s/p ureteral stents and catheter placement (02/25) do not remove for [address] Fong levaquin DCd (02/25-02/27) PRN pain meds V. tach. had 1 run of 15 beat vtach, monomoprhic on 02/25. Asymptomatic. No further episodes no history of arrhythmia, no palpitations Pre-op EKG with borderline high QTc patient receiving levaquin, potential for prolongation of QTc rechecked EKG 02/26, no change in QTc monitor on telemetry avoid any further possible QT prolonging medications no further workup needed at this time Anemia of chronic disease. H/H stable BPH. Continue Flomax GERD. Continue home medication Hypertension. Stable. Continue home medication Insomnia. Continue home medication History of recurrent UTIs. Continue antibiotics VTE: Lovenox Code: Full Dispo: home per surgery
[2023-03-01] MEDS: CYANOCOBALAMIN 1,000 MCG TAB PO SCH (07:53)
[2023-03-01] MEDS: VITAMIN D 5,000 UNIT CAP PO SCH (07:53)
[2023-03-01] MEDS: MULTIVITAMIN TAB PO SCH (07:53)
[2023-03-01] MEDS: CETIRIZINE HCL 5 MG TABLET PO SCH (07:54)
[2023-03-01] MEDS: PANTOPRAZOLE 40MG TABLET PO SCH (07:54)
[2023-03-01] MEDS: TAMSULOSIN 0.4 MG SR CAP PO SCH (07:54)
[2023-03-01] MEDS: ZOLPIDEM TARTRATE 10 MG TABLET PO SCH (20:39)
[2023-03-02] MEDS: D5.45NS W/KCL 20MEQ 1,000 ML IV SCH (05:43)
[2023-03-02] MEDS: HYDROCODONE/APAP 10/325 TAB PO PRN ×2 (05:43→10:53)
--- NOTE | 2023-03-02 06:53 | P.PN ---
Date of Service: 03/02/23 Subjective: doing okay, stable remains in sinus rhythm, no further episodes of v.tach abdominal pain continues to improve ROS: 10 point ROS as noted above, otherwise negative Physical Exam: GEN: Alert, oriented, NAD, in place HEENT: Normal conjunctiva, sclera anicteric CV: Regular rate and rhythm, no edema Pulm: Nonlabored respirations on room air, clear bilaterally ABD: Soft, nontender, nondistended Neuro: Normal speech, normal affect in place vitals reviewed Problem List: Sigmoid Diverticulitis with [place] Fistula s/p lap sigmoid colectomy V. tach - 1 run Anemia of chronic disease BPH GERD Hypertension Insomnia History of recurrent UTIs Sigmoid Diverticulitis with [place] Fistula, now s/p Laparoscopic Sigmoid Colectomy with primary anastomosis and Takedown of Colovesicle Fistula (02/25) Dr. Fong and Rigo following s/p Laparoscopic Sigmoid Colectomy with primary anastomosis and Takedown of Colovesicle Fistula (02/25) SHAKIR drain draining serosanguineous fluid. s/p ureteral stents and catheter placement (02/25) do not remove for [address] Fong levaquin DCd (02/25-02/27) PRN pain meds V. tach. had 1 run of 15 beat vtach, monomoprhic on 02/25. Asymptomatic. No further episodes no history of arrhythmia, no palpitations Pre-op EKG with borderline high QTc patient receiving levaquin, potential for prolongation of QTc rechecked EKG 02/26, no change in QTc monitor on telemetry avoid any further possible QT prolonging medications no further workup needed at this time Anemia of chronic disease. H/H stable BPH. Continue Flomax GERD. Continue home medication Hypertension. Stable. Continue home medication Insomnia. Continue home medication History of recurrent UTIs. Continue antibiotics VTE: Lovenox Code: Full Dispo: home per surgery
[2023-03-02 07:44] LABS: Absolute Lymphocytes (CBC) 0.6 K/uL (0.7-4.9); Hematocrit 31.9 % (39.6-49.0); Lymphocytes % 6.6 % (15.3-44.8); MCV 94.2 fL (80-100); MPV 8.2 fL (7.6-11.3); RBC Red Blood Cell Count 3.39 M/uL (4.33-5.43)
[2023-03-02] MEDS: CETIRIZINE HCL 5 MG TABLET PO SCH (07:55)
[2023-03-02] MEDS: TAMSULOSIN 0.4 MG SR CAP PO SCH (07:55)
[2023-03-02] MEDS: MULTIVITAMIN TAB PO SCH (07:55)
[2023-03-02] MEDS: lisinopriL 20 MG TAB PO SCH (07:55)
[2023-03-02] MEDS: CYANOCOBALAMIN 1,000 MCG TAB PO SCH (07:55)
[2023-03-02] MEDS: VITAMIN D 5,000 UNIT CAP PO SCH (07:55)
[2023-03-02 07:56] VITALS: BP 130/76
[2023-03-02] MEDS: PANTOPRAZOLE 40MG TABLET PO SCH (07:56)
[2023-03-02 08:07] LABS: Magnesium 1.9 mg/dL (1.6-2.4); Phosphorus 3.9 mg/dL (2.5-4.9); Potassium 4.1 mEq/L (3.5-5.1)
[2023-03-02 08:33] VITALS: TEMP 98
[2023-03-02 08:46] VITALS: O2SAT 95
== END 2023-03-02 11:44 | disposition home or self-care (01) | DRG 330 ==
LOC: OR 06:58 → 3RD-ICU 15:28 → 2ND 02-26 18:49
PROVIDERS: ADMIT Surgery; ATTEND Surgery
PROC: 0D1 Gastrointestinal System, Bypass (ICD-10-PCS; 2023-02-25)
PROC: 0DTN4ZZ Resection of Sigmoid Colon, Percutaneous Endoscopic Approach (ICD-10-PCS; principal; 2023-02-25 08:00)
DX: K57.30 Diverticulosis of large intestine without perforation or abscess without bleeding (principal); I47.20 Ventricular tachycardia, unspecified; N32.1 Vesicointestinal fistula; N39.0 Urinary tract infection, site not specified; K63.89 Other specified diseases of intestine; N40.0 Benign prostatic hyperplasia without lower urinary tract symptoms; K21.9 Gastro-esophageal reflux disease without esophagitis; G47.00 Insomnia, unspecified
CPT/HCPCS: 36415; 80048; 82947; 83735; 84100; 84132; 85014; 85018; 85025; 85610; 85730; 86850; 86900; 86901; 88307; 93005; 94010; 94760; J1100; J1170; J1650; J2001; J2250; J2405; J2550; J2704; J3010; J3480; J7120; Q0162

== ENCOUNTER 2025-04-13 13:26 | Inpatient (IN) | payer BC, OTHER ==
--- OUTSIDE RECORDS SUMMARY | 2025-04-13 13:30 | XMS REPORT | Continuity of Care Document ---
Author Name Unknown Address [address] [facility] [address] [place] [address] [facility] Address [address] [facility]. [address] [place] [address] Care Team Providers Care Corporate Sales Representative Name Role Phone Jacqueline Crowell MD Primary Care Physician Rosa Eckert Attending Clinician [phone] VIC Attending Clinician Unavailable APPLE_Wisam Attending Clinician Unavailable Jose Moreno NPechukwu Attending Clinician [phone] Jacqueline Crowell MD Attending Clinician [phone] JACQUELINE CROWELL Attending Clinician Unava ilneisha Doctor Unassigned, [place] Attending Clinician U mariano 2, [facility] Attending Clinician Unavailable VIC Admitting Clinician Unavailable DONELL Admitting Clinician Unavailable Payers Payer Name Policy Type Policy Number Effective Date Expirati on Date Source [facility]: BLUE ADVANTAGE (HMO) [id number] 2023 00:00:[address] Benefits [id number] [facility] DEYSI BENEFITS (PPO) [id number] Problems Condition Name Condition Details Condition Category Status Onset Date Resolution Date Last Treatment Date Treating Clinician Comments Source Seasonal allergy Seasonal Allergy Problem Active 4 00:00: 00 [facility] Dysuria Dysuria Problem Active 1 00:00: 00 [facility] Low back pain Low Back Pain Problem Active 2023-09 2 00:00: 00 [facility] Adult health examinatio n Adult Health Examinatio n Problem Active 2 00:00: 00 [facility] Essential hypertensi on Essential Hypertensi on Problem Active 2021-09 00:00: 00 [facility] Depressive disorder Depressive Disorder Problem Active 2021-09 00:00: 00 [place] Insomnia Insomnia Problem [facility] Caregiver stress Caregiver stress Disease Active 01-14 00:00: 00 [facility] Hyperlipid emia Hyperlipid emia Disease Active 01-03 00:00: 00 [facility] Essential hypertensi on, benign Essential hypertensi on, benign Disease Active 10-03 00:00: 00 [facility] Vitamin D deficiency Vitamin D deficiency Disease Active 10-03 00:00: 00 Overview: Formattin g of this note might be different from the original. 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 [facility] Allergic rhinitis Allergic rhinitis Disease Active 10-03 00:00: 00 [facility] Insomnia Insomnia Disease Active 10-03 00:00: 00 [facility] GERD (gastroeso phageal reflux disease) GERD (gastroeso phageal reflux disease) Disease Active 10-03 00:00: 00 [facility] Actinic keratosis Actinic keratosis Disease Active 10-03 00:00: 00 [facility] [id number] Acute cystitis with hematuria Problem [facility] Disorder of bladder Disorder of bladder Problem [facility] Chronic cystitis Chronic cystitis Problem [facility] Coloves[place] l fistula Colovesica l fistula Problem [facility] [id number] Colonic mass Problem [facility] [id number] Cystitis Problem [facility] [id number] Liver lesion Problem [facility] [id number] Pelvic pain Problem [facility] [id number] Constipati on by delayed colonic transit Problem [facility] [id number] Lung nodule Problem [facility] [id number] Lesion of bladder Problem [facility] [id number] Recurrent UTI Problem [facility] [id number] Family history of bladder cancer Problem [facility] [id number] Gross hematuria Problem [facility] [id number] Lower urinary tract symptoms (LUTS) Problem [facility] Preventati ve health care Preventati ve health care Disease Resolve d 11-06 00:00: 00 2021-01-14 00:00:00 2021-01-14 14:45:57 [facility] Neutropeni a Neutropeni a Disease Resolve d 11-06 00:00: 00 2021-01-14 00:00:00 2021-01-14 14:46:23 [facility] Allergies, Adverse Reactions, Alerts Allergy Name Allergy Type Status Severity Reaction(s) Onset Date Inactive Date Treating Clinician Comments Source NO KNOWN ALLERGIE S Drug Class Active [facility] Social History Social Habit Start Date Stop Date Quantity Comments Source [facility] Sex Assigned At [facility] Exposure to SARS-CoV-2 (event) 2021-12-29 00:00:00 2022-01-08 09:00:00 Not sure [facility] Alcohol intake 2021-07-10 00:00:00 2021-07-10 00:00:00 Current non-drinker of alcohol (finding) [facility] History of Social function 2021-07-10 00:00:00 2021-07-10 00:00:00 [facility] Alcoholic beverage intake 2017-11-25 00:00:00 2017-11-25 00:00:00 Current non-drinker of alcohol (finding) [facility] Tobacco use and exposure 2014-10-04 00:00:00 2014-10-04 00:00:00 Smokeless tobacco non-user [facility] Smoking Status Start Date Stop Date Source Never Smoker [facility] Medications Ordered Medication Name Filled Medication Name Start Date Stop Date Current Medication? Ordering Clinician Indication Dosage Frequency Signature (SIG) Comments Components Source Fluconazole 100 MG Fluconazole 100 MG 2023-0 7-10 00:00: 00 No Fluconazol e 100 MG Fluconazole 100 MG Fluconazole 100 MG 2023-0 7-10 00:00: 00 No Fluconazol e 100 MG Fluconazole 100 MG Fluconazole 100 MG 2023-0 7-10 00:00: 00 No Fluconazol e 100 MG Fluconazole 100 MG Fluconazole 100 MG 2023-0 7-10 00:00: 00 No Fluconazol e 100 MG Fluconazole 100 MG Fluconazole 100 MG 2023-0 7-10 00:00: 00 No Fluconazol e 100 MG Fluconazole 100 MG Fluconazole 100 MG 2023-0 7-10 00:00: 00 No Fluconazol e 100 MG Fluconazole 100 MG Fluconazole 100 MG 2023-0 7-10 00:00: 00 No Fluconazol e 100 MG Fluconazole 100 MG Fluconazole 100 MG 2023-0 7-10 00:00: 00 No Fluconazol e 100 MG Nitrofurant oin Monohyd Macro 100 MG Nitrofurant oin Monohyd Macro 100 MG 2023-0 3-30 00:00: 00 No Nitrofuran toin Monohyd Macro 100 MG Nitrofurant oin Monohyd Macro 100 MG Nitrofurant oin Monohyd Macro 100 MG 2023-0 3-30 00:00: 00 No Nitrofuran toin Monohyd Macro 100 MG Nitrofurant oin Monohyd Macro 100 MG Nitrofurant oin Monohyd Macro 100 MG 2023-0 3-30 00:00: 00 No Nitrofuran toin Monohyd Macro 100 MG Nitrofurant oin Monohyd Macro 100 MG Nitrofurant oin Monohyd Macro 100 MG 2023-0 3-30 00:00: 00 No Nitrofuran toin Monohyd Macro 100 MG Nitrofurant oin Monohyd Macro 100 MG Nitrofurant oin Monohyd Macro 100 MG 3-0 3 00:00: 00 No Nitrofuran toin Monohyd Macro 100 MG Nitrofurant oin Monohyd Macro 100 MG Nitrofurant oin Monohyd Macro 100 MG 3-0 3 00:00: 00 No Nitrofuran toin Monohyd Macro 100 MG Nitrofurant oin Monohyd Macro 100 MG Nitrofurant oin Monohyd Macro 100 MG 2022-0 3 00:00: 00 No Nitrofuran toin Monohyd Macro 100 MG Nitrofurant oin Monohyd Macro 100 MG Nitrofurant oin Monohyd Macro 100 MG 2022-0 3 00:00: 00 No Nitrofuran toin Monohyd Macro 100 MG Cefpodoxime Proxetil 200 MG Cefpodoxime Proxetil 200 MG 2022-0 2 00:00: 00 10-30 00:00 :00 No 1{table t_with_ food} BID Cefpodoxim e Proxetil 200 MG Flomax 0.4 MG Flomax 0.4 MG 2022-0 09-25 00:00: 00 04-23 00:00 :00 No 1{capsu le} QD Flomax 0.4 MG Flomax 0.4 MG Flomax 0.4 MG 2022-0 09-25 00:00: 00 04-23 00:00 :00 No 1{capsu le} QD Flomax 0.4 MG multivitami n tablet 01-08 08:58: 08 Yes 1{tbl} Take 1 Tab by mouth daily. [facility] CYANOCOBALA MIN, VITAMIN B-12, (VITAMIN B-12 ORAL) 01-08 08:58: 08 Yes Take by mouth. [facility] lisinopriL 20 mg tablet 01-08 00:00: 00 Yes [id number] 20mg Take 1 tablet by mouth daily. [facility] cyclobenzap rine 5 mg tablet 01-08 00:00: 00 Yes [id number] Start with one pill daily as needed, can use up to one pill three times a day. [facility] lisinopriL 40 mg tablet 2020-09 0-29 00:00: 00 01-08 00:00 :00 No [id number] 40mg Take 1 tablet by mouth daily. [facility] CYANOCOBALA MIN, VITAMIN B-12, (VITAMIN B-12 ORAL) 5-04 10:24: 22 03-23 00:00 :00 No Take by mouth. [facility] cholecalcif richard, vitamin D3, (VITAMIN D3) 1,000 unit tablet 17 08:38: 46 05-25 00:00 :00 No 1000U Take 1,000 Units by mouth daily. [facility] lisinopril 40 mg tablet 320 00:00: 00 05-19 00:00 :00 No [id number] 40mg Take 1 tablet by mouth daily. [facility] cetirizine (ZYRTEC) 10 mg tablet 2 00:00: 00 05-22 00:00 :00 No [id number] 10mg Take 1 tablet by mouth daily. [facility] Ibuprofen 600 MG Ibuprofen 600 MG No TID Ibuprofen 600 MG Multivitami n - Multivitami n - No 1{table t} QD Multivitam in - Cetirizine HCl 10 MG Cetirizine HCl 10 MG No 1{table t} QD Cetirizine HCl 10 MG Omeprazole 20 MG Omeprazole 20 MG No QD Omeprazole 20 MG Vitamin D3 25 MCG (1000 UT) Vitamin D3 25 MCG (1000 UT) No 1{table t} Vitamin D3 25 MCG (1000 UT) Lisinopril 40 MG Lisinopril 40 MG No 1{table t} QD Lisinopril 40 MG Tamsulosin HCl 0.4 MG Tamsulosin HCl 0.4 MG No Tamsulosin HCl 0.4 MG Zolpidem Tartrate 10 MG Zolpidem Tartrate 10 MG No 1{table t_at_be dtime_a s_neede d} QD Zolpidem Tartrate 10 MG Ibuprofen 600 MG Ibuprofen 600 MG No TID Ibuprofen 600 MG Multivitami n - Multivitami n - No 1{table t} QD Multivitam in - Zolpidem Tartrate 10 MG Zolpidem Tartrate 10 MG No 1{table t_at_be dtime_a s_neede d} QD Zolpidem Tartrate 10 MG Cetirizine HCl 10 MG Cetirizine HCl 10 MG No 1{table t} QD Cetirizine HCl 10 MG Omeprazole 20 MG Omeprazole 20 MG No QD Omeprazole 20 MG fluticasone propionate 50 mcg/actuati on nasal spray,suspe nsion SHAKE GENTLY: USE 1 SPRAY IN EACH NOSTRIL EVERY DAY DIRECTED. fluticasone propionate 50 mcg/actuati on nasal spray,suspe nsion SHAKE GENTLY: USE 1 SPRAY IN EACH NOSTRIL EVERY DAY DIRECTED. No 1spray( s) Q1D fluticason e propionate 50 mcg/actuat ion nasal spray,susp ension SHAKE GENTLY: USE 1 SPRAY IN EACH NOSTRIL EVERY DAY DIRECTED. [facility] Vitamin D3 25 MCG (1000 UT) Vitamin D3 25 MCG (1000 UT) No 1{table t} Vitamin D3 25 MCG (1000 UT) lisinopril 40 mg tablet TAKE 1 TABLET BY MOUTH EVERY DAY lisinopril 40 mg tablet TAKE 1 TABLET BY MOUTH EVERY DAY No 1 Q1D lisinopril 40 mg tablet TAKE 1 TABLET BY MOUTH EVERY DAY [facility] Lisinopril 40 MG Lisinopril 40 MG No 1{table t} QD Lisinopril 40 MG Tamsulosin HCl 0.4 MG Tamsulosin HCl 0.4 MG No Tamsulosin HCl 0.4 MG multivitami n multivitami n No multivitam in [facility] Zolpidem Tartrate 10 MG Zolpidem Tartrate 10 MG No 1{table t_at_be dtime_a s_neede d} QD Zolpidem Tartrate 10 MG mupirocin 2 % topical ointment APPLY TOPICALLY TO AREA(S) 3 TIMES A DAY mupirocin 2 % topical ointment APPLY TOPICALLY TO AREA(S) 3 TIMES A DAY No mupirocin 2 % topical ointment APPLY TOPICALLY TO AREA(S) 3 TIMES A DAY [facility] Multivitami n - Multivitami n - No 1{table t} QD Multivitam in - Vitamin D3 25 MCG (1000 UT) Vitamin D3 25 MCG (1000 UT) No 1{table t} Vitamin D3 25 MCG (1000 UT) omeprazole 20 mg capsule,del ayed release Take 1 capsule every day by oral route. omeprazole 20 mg capsule,del ayed release Take 1 capsule every day by oral route. No 1capsul e(s) Q1D omeprazole 20 mg capsule,de layed release Take 1 capsule every day by oral route. [facility] Ibuprofen 600 MG Ibuprofen 600 MG No TID Ibuprofen 600 MG Multivitami n - Multivitami n - No 1{table t} QD Multivitam in - tamsulosin 0.4 mg capsule TAKE 1 CAPSULE BY MOUTH EVERY DAY tamsulosin 0.4 mg capsule TAKE 1 CAPSULE BY MOUTH EVERY DAY No 1capsul e(s) Q1D tamsulosin 0.4 mg capsule TAKE 1 CAPSULE BY MOUTH EVERY DAY [facility] Cetirizine HCl 10 MG Cetirizine HCl 10 MG No 1{table t} QD Cetirizine HCl 10 MG zolpidem 10 mg tablet TAKE 1 TABLET BY MOUTH EVERY NIGHT AT BEDTIME NEEDED FOR INSOMNIA zolpidem 10 mg tablet TAKE 1 TABLET BY MOUTH EVERY NIGHT AT BEDTIME NEEDED FOR INSOMNIA No zolpidem 10 mg tablet TAKE 1 TABLET BY MOUTH EVERY NIGHT AT BEDTIME NEEDED FOR INSOMNIA [facility] Omeprazole 20 MG Omeprazole 20 MG No QD Omeprazole 20 MG Vitamin D3 25 MCG (1000 UT) Vitamin D3 25 MCG (1000 UT) No 1{table t} Vitamin D3 25 MCG (1000 UT) ibuprofen 800 mg tablet TAKE 1 TABLET BY MOUTH 3 TIMES A DAY NEEDED ibuprofen 800 mg tablet TAKE 1 TABLET BY MOUTH 3 TIMES A DAY NEEDED No ibuprofen 800 mg tablet TAKE 1 TABLET BY MOUTH 3 TIMES A DAY NEEDED [facility] Lisinopril 40 MG Lisinopril 40 MG No 1{table t} QD Lisinopril 40 MG ergocalcife rol (vitamin D2) 1,250 mcg (50,000 unit) capsule ergocalcife rol (vitamin D2) 1,250 mcg (50,000 unit) capsule No ergocalcif richard (vitamin D2) 1,250 mcg (50,000 unit) capsule [facility] Tamsulosin HCl 0.4 MG Tamsulosin HCl 0.4 MG No Tamsulosin HCl 0.4 MG Omeprazole 20 MG Omeprazole 20 MG No QD Omeprazole 20 MG amlodipine 5 mg tablet Take 1 tablet every day by oral route for 90 days. amlodipine 5 mg tablet Take 1 tablet every day by oral route for 90 days. No 1 Q1D amlodipine 5 mg tablet Take 1 tablet every day by oral route for 90 days. [facility] Zolpidem Tartrate 10 MG Zolpidem Tartrate 10 MG No 1{table t_at_be dtime_a s_neede d} QD Zolpidem Tartrate 10 MG Ibuprofen 600 MG Ibuprofen 600 MG No TID Ibuprofen 600 MG benzonatate 100 mg capsule TAKE 1 CAPSULE BY MOUTH 3 TIMES A DAY FOR 10 DAYS benzonatate 100 mg capsule TAKE 1 CAPSULE BY MOUTH 3 TIMES A DAY FOR 10 DAYS No 1capsul e(s) TID benzonatat e 100 mg capsule TAKE 1 CAPSULE BY MOUTH 3 TIMES A DAY FOR 10 DAYS [facility] Ibuprofen 600 MG Ibuprofen 600 MG No TID Ibuprofen 600 MG Multivitami n - Multivitami n - No 1{table t} QD Multivitam in - Cetirizine HCl 10 MG Cetirizine HCl 10 MG No 1{table t} QD Cetirizine HCl 10 MG Omeprazole 20 MG Omeprazole 20 MG No QD Omeprazole 20 MG Vitamin D3 25 MCG (1000 UT) Vitamin D3 25 MCG (1000 UT) No 1{table t} Vitamin D3 25 MCG (1000 UT) Lisinopril 40 MG Lisinopril 40 MG No 1{table t} QD Lisinopril 40 MG Tamsulosin HCl 0.4 MG Tamsulosin HCl 0.4 MG No Tamsulosin HCl 0.4 MG Zolpidem Tartrate 10 MG Zolpidem Tartrate 10 MG No 1{table t_at_be dtime_a s_neede d} QD Zolpidem Tartrate 10 MG Lisinopril 40 MG Lisinopril 40 MG No 1{table t} QD Lisinopril 40 MG Ibuprofen 600 MG Ibuprofen 600 MG No TID Ibuprofen 600 MG Multivitami n - Multivitami n - No 1{table t} QD Multivitam in - Cetirizine HCl 10 MG Cetirizine HCl 10 MG No 1{table t} QD Cetirizine HCl 10 MG Omeprazole 20 MG Omeprazole 20 MG No QD Omeprazole 20 MG Cetirizine HCl 10 MG Cetirizine HCl 10 MG No 1{table t} QD Cetirizine HCl 10 MG Vitamin D3 25 MCG (1000 UT) Vitamin D3 25 MCG (1000 UT) No 1{table t} Vitamin D3 25 MCG (1000 UT) Lisinopril 40 MG Lisinopril 40 MG No 1{table t} QD Lisinopril 40 MG Tamsulosin HCl 0.4 MG Tamsulosin HCl 0.4 MG No Tamsulosin HCl 0.4 MG Zolpidem Tartrate 10 MG Zolpidem Tartrate 10 MG No 1{table t_at_be dtime_a s_neede d} QD Zolpidem Tartrate 10 MG Ibuprofen 600 MG Ibuprofen 600 MG No TID Ibuprofen 600 MG Multivitami n - Multivitami n - No 1{table t} QD Multivitam in - Cetirizine HCl 10 MG Cetirizine HCl 10 MG No 1{table t} QD Cetirizine HCl 10 MG Omeprazole 20 MG Omeprazole 20 MG No QD Omeprazole 20 MG Vitamin D3 25 MCG (1000 UT) Vitamin D3 25 MCG (1000 UT) No 1{table t} Vitamin D3 25 MCG (1000 UT) Lisinopril 40 MG Lisinopril 40 MG No 1{table t} QD Lisinopril 40 MG Tamsulosin HCl 0.4 MG Tamsulosin HCl 0.4 MG No Tamsulosin HCl 0.4 MG Zolpidem Tartrate 10 MG Zolpidem Tartrate 10 MG No 1{table t_at_be dtime_a s_neede d} QD Zolpidem Tartrate 10 MG Lisinopril 40 MG Lisinopril 40 MG No 1{table t} QD Lisinopril 40 MG Cetirizine HCl 10 MG Cetirizine HCl 10 MG No 1{table t} QD Cetirizine HCl 10 MG Omeprazole 20 MG Omeprazole 20 MG No QD Omeprazole 20 MG Vitamin D3 25 MCG (1000 UT) Vitamin D3 25 MCG (1000 UT) No 1{table t} Vitamin D3 25 MCG (1000 UT) Ibuprofen 600 MG Ibuprofen 600 MG No TID Ibuprofen 600 MG Zolpidem Tartrate 10 MG Zolpidem Tartrate 10 MG No 1{table t_at_be dtime_a s_neede d} QD Zolpidem Tartrate 10 MG Multivitami n - Multivitami n - No 1{table t} QD Multivitam in - Ibuprofen 600 MG Ibuprofen 600 MG No TID Ibuprofen 600 MG Multivitami n - Multivitami n - No 1{table t} QD Multivitam in - Cetirizine HCl 10 MG Cetirizine HCl 10 MG No 1{table t} QD Cetirizine HCl 10 MG Omeprazole 20 MG Omeprazole 20 MG No QD Omeprazole 20 MG Vitamin D3 25 MCG (1000 UT) Vitamin D3 25 MCG (1000 UT) No 1{table t} Vitamin D3 25 MCG (1000 UT) Lisinopril 40 MG Lisinopril 40 MG No 1{table t} QD Lisinopril 40 MG Tamsulosin HCl 0.4 MG Tamsulosin HCl 0.4 MG No Tamsulosin HCl 0.4 MG Zolpidem Tartrate 10 MG Zolpidem Tartrate 10 MG No 1{table t_at_be dtime_a s_neede d} QD Zolpidem Tartrate 10 MG Ibuprofen 600 MG Ibuprofen 600 MG No TID Ibuprofen 600 MG Multivitami n - Multivitami n - No 1{table t} QD Multivitam in - Cetirizine HCl 10 MG Cetirizine HCl 10 MG No 1{table t} QD Cetirizine HCl 10 MG Omeprazole 20 MG Omeprazole 20 MG No QD Omeprazole 20 MG Vitamin D3 25 MCG (1000 UT) Vitamin D3 25 MCG (1000 UT) No 1{table t} Vitamin D3 25 MCG (1000 UT) Lisinopril 40 MG Lisinopril 40 MG No 1{table t} QD Lisinopril 40 MG Tamsulosin HCl 0.4 MG Tamsulosin HCl 0.4 MG No Tamsulosin HCl 0.4 MG Zolpidem Tartrate 10 MG Zolpidem Tartrate 10 MG No 1{table t_at_be dtime_a s_neede d} QD Zolpidem Tartrate 10 MG Vital Signs Vital Name Observation Time Observation Value Comments S ource BP Systolic 2024-12-07 00:00:00 124 mm[Hg] [facility] Height 2024-12-07 00:00:00 68 [in_i] [facility] BMI (Body Mass Index) 2024-12-07 00:00:00 28.1 kg/m2 [facility] Body Weight 2024-12-07 00:00:00 2956.8 [oz_av] [facility] BP Diastolic 2024-12-07 00:00:00 80 mm[Hg] [facility] BP Systolic 2024-11-09 00:00:00 120 mm[Hg] [facility] BMI (Body Mass Index) 2024-11-09 00:00:00 28.2 kg/m2 [facility] BP Diastolic 2024-11-09 00:00:00 60 mm[Hg] [facility] Body Weight 2024-11-09 00:00:00 2966.4 [oz_av] [facility] Height 2024-11-09 00:00:00 68 [in_i] [facility] Body Weight 2024-09-14 00:00:00 2966.4 [oz_av] [facility] Height 2024-09-14 00:00:00 68 [in_i] [facility] BMI (Body Mass Index) 2024-09-14 00:00:00 28.2 kg/m2 [facility] BP Diastolic 2024-09-14 00:00:00 70 mm[Hg] [facility] BP Systolic 2024-09-14 00:00:00 124 mm[Hg] [facility] BMI (Body Mass Index) 2024-08-19 00:00:00 28.3 kg/m2 [facility] Body Weight 2024-08-19 00:00:00 2982.4 [oz_av] [facility] BP Diastolic 2024-08-19 00:00:00 78 mm[Hg] [facility] Height 2024-08-19 00:00:00 68 [in_i] [facility] BP Systolic 2024-08-19 00:00:00 138 mm[Hg] [facility] BP Diastolic 2024-04-20 00:00:00 80 mm[Hg] [facility] Height 2024-04-20 00:00:00 68 [in_i] [facility] Body Weight 2024-04-20 00:00:00 2908.8 [oz_av] [facility] BP Systolic 2024-04-20 00:00:00 124 mm[Hg] [facility] BMI (Body Mass Index) 2024-04-20 00:00:00 27.6 kg/m2 [facility] BP Systolic 2023-10-21 00:00:00 123 mm[Hg] [facility] Body Weight 2023-10-21 00:00:00 2793.6 [oz_av] [facility] Height 2023-10-21 00:00:00 68 [in_i] [facility] BMI (Body Mass Index) 2023-10-21 00:00:00 26.5 kg/m2 [facility] BP Diastolic 2023-10-21 00:00:00 70 mm[Hg] [facility] BP Systolic 2023-08-12 00:00:00 126 mm[Hg] [facility] Body Weight 2023-08-12 00:00:00 2688 [oz_av] [facility] BMI (Body Mass Index) 2023-08-12 00:00:00 25.5 kg/m2 [facility] BP Diastolic 2023-08-12 00:00:00 64 mm[Hg] [facility] Height 2023-08-12 00:00:00 68 [in_i] [facility] height 2023-03-10 09:15:00 67 [in_i] [facility] weight 2023-03-10 09:15:00 150.8 [lb_av] Co [facility] temperature 2023-03-10 09:15:00 98 [degF] [facility] bmi 2023-03-10 09:15:00 23.62 kg/m2 [facility] oximetry 2023-03-10 09:15:00 99 % [facility] respiratory rate 2023-03-10 09:15:00 18 /min [facility] blood pressure systolic 2023-03-10 09:15:00 132 mm[Hg] [facility] blood pressure diastolic 2023-03-10 09:15:00 68 mm[Hg] [facility] Height 2023-01-28 00:00:00 68 [in_i] [facility] BMI (Body Mass Index) 2023-01-28 00:00:00 25.7 kg/m2 [facility] Body Weight 2023-01-28 00:00:00 2705.6 [oz_av] [facility] BP Diastolic 2023-01-28 00:00:00 89 mm[Hg] [facility] BP Systolic 2023-01-28 00:00:00 169 mm[Hg] [facility] height 2023-01-17 11:45:00 67 [in_i] [facility] weight 2023-01-17 11:45:00 173.8 [lb_av] Co [facility] temperature 2023-01-17 11:45:00 98.8 [degF] Com mon [facility] bmi 2023-01-17 11:45:00 27.22 kg/m2 Comm on [facility] oximetry 2023-01-17 11:45:00 98 % Commo n [facility] respiratory rate 2023-01-17 11:45:00 18 /min [facility] blood pressure systolic 2023-01-17 11:45:00 161 mm[Hg] [facility] blood pressure diastolic 2023-01-17 11:45:00 86 mm[Hg] [facility] height 2023-01-08 13:45:00 67 [in_i] Commo n [facility] weight 2023-01-08 13:45:00 173.2 [lb_av] Co on [facility] temperature 2023-01-08 13:45:00 98.7 [degF] Com [facility] bmi 2023-01-08 13:45:00 27.12 kg/m2 Comm on [facility] oximetry 2023-01-08 13:45:00 99 % Commo n [facility] respiratory rate 2023-01-08 13:45:00 18 /min [facility] blood pressure systolic 2023-01-08 13:45:00 146 mm[Hg] [facility] blood pressure diastolic 2023-01-08 13:45:00 68 mm[Hg] [facility] height 2022-12-05 11:00:00 67 [in_i] Commo n [facility] weight 2022-12-05 11:00:00 173.6 [lb_av] Co on [facility] temperature 2022-12-05 11:00:00 98.2 [degF] Com [facility] bmi 2022-12-05 11:00:00 27.19 kg/m2 Comm on [facility] oximetry 2022-12-05 11:00:00 99 % Commo n [facility] respiratory rate 2022-12-05 11:00:00 18 /min Common [facility] blood pressure systolic 2022-12-05 11:00:00 146 mm[Hg] [facility] blood pressure diastolic 2022-12-05 11:00:00 81 mm[Hg] [facility] height 2022-10-30 16:30:00 67 [in_i] Commo n [facility] weight 2022-10-30 16:30:00 176.2 [lb_av] Co mmon [facility] temperature 2022-10-30 16:30:00 97.6 [degF] Com mon [facility] bmi 2022-10-30 16:30:00 27.59 kg/m2 Comm on [facility] oximetry 2022-10-30 16:30:00 97 % Commo n [facility] respiratory rate 2022-10-30 16:30:00 18 /min Common [facility] blood pressure systolic 2022-10-30 16:30:00 186 mm[Hg] [facility] pressure diastolic 2022-10-30 16:30:00 93 mm[Hg] [facility] height 2022-10-09 17:15:00 67 [in_i] Commo n [facility] weight 2022-10-09 17:15:00 180 [lb_av] Comm on [facility] temperature 2022-10-09 17:15:00 97.6 [degF] Com [facility] bmi 2022-10-09 17:15:00 28.19 kg/m2 Comm on [facility] oximetry 2022-10-09 17:15:00 98 % Commo n [facility] respiratory rate 2022-10-09 17:15:00 18 /min Common [facility] blood pressure systolic 2022-10-09 17:15:00 140 mm[Hg] Common [facility] blood pressure diastolic 2022-10-09 17:15:00 90 mm[Hg] [facility] height 2022-09-25 08:30:00 67 [in_i] Commo n [facility] weight 2022-09-25 08:30:00 175.4 [lb_av] Co mmon [facility] temperature 2022-09-25 08:30:00 98.7 [degF] Com [facility] bmi 2022-09-25 08:30:00 27.47 kg/m2 Comm on [facility] oximetry 2022-09-25 08:30:00 96 % Commo n [facility] respiratory rate 2022-09-25 08:30:00 16 /min Common [facility] blood pressure systolic 2022-09-25 08:30:00 140 mm[Hg] [facility] blood pressure diastolic 2022-09-25 08:30:00 78 mm[Hg] [facility] BP Diastolic 2022-08-14 00:00:00 74 mm[Hg] [facility] Height 2022-08-14 00:00:00 68 [in_i] [facility] BMI (Body Mass Index) 2022-08-14 00:00:00 27.4 kg/m2 [facility] BP Systolic 2022-08-14 00:00:00 139 mm[Hg] [facility] Body Weight 2022-08-14 00:00:00 2880 [oz_av] [facility] BP Diastolic 2022-07-30 00:00:00 88 mm[Hg] [facility] Height 2022-07-30 00:00:00 68 [in_i] [facility] BMI (Body Mass Index) 2022-07-30 00:00:00 28.6 kg/m2 [facility] BP Systolic 2022-07-30 00:00:00 118 mm[Hg] [facility] Body Weight 2022-07-30 00:00:00 3008 [oz_av] [facility] BP Diastolic 2022-07-11 00:00:00 93 mm[Hg] [facility] Height 2022-07-11 00:00:00 68 [in_i] [facility] BMI (Body Mass Index) 2022-07-11 00:00:00 28.3 kg/m2 [facility] BP Systolic 2022-07-11 00:00:00 180 mm[Hg] [facility] Body Weight 2022-07-11 00:00:00 2976 [oz_av] [facility] Systolic blood pressure 2022-01-08 13:53:00 136 mm[Hg] [facility] Diastolic blood pressure 2022-01-08 13:53:00 83 mm[Hg] [facility] Heart rate 2022-01-08 13:53:00 98 /min [facility] Body temperature 2022-01-08 13:53:00 36.78 Carmen [facility] Respiratory rate 2022-01-08 13:53:00 18 /min [facility] Body height 2022-01-08 13:53:00 172.7 cm [facility] Body weight 2022-01-08 13:53:00 87.544 kg [facility] BMI 2022-01-08 13:53:00 29.35 kg/m2 [facility] Oxygen saturation in Arterial blood by Pulse oximetry 2022-01-08 13:53:00 99 /min [facility] Procedures Procedure Date / Time Performed Performing Clinicia n Source PVR 2023-01-17 00:00:00 [facility] XR, kidney + ureter + bladder 2022-08-27 00:00:00 [facility] Encounters Start Date/Time End Date/Time Encounter Type Admission Type Attending Clinicians Care Facility Care Department Encounter ID Source 2023-09-15 15:07:01 Outpatient [facility] [id number] [facility] 2022-09-25 08:11:04 Outpatient [facility] [id number] [facility] 2018-05-02 00:00:00 2024-12-30 22:20:00 Rosa Nice [facility] 1.2.840.114 350.1.13.10 4.2.7.2.686 [id number] [facility] 2024-12-07 00:00:00 2024-12-07 00:00:00 Ciarra Nieves MD: [address], [address], [place] [address] , Ph. [facility], [place] [place] [id number] 0401 [place] [facility] 2024-12-02 00:00:00 2024-12-02 00:00:00 Ciarra Nieves MD: [address], [address], [place] [address] , Ph. [facility], [place] [place] [id number] 0327 [place] [facility] 2024-11-09 00:00:00 2024-11-09 00:00:00 Ciarra Nieves MD: [address], [address], [facility] [place] [address] , Ph. [facility], [address] [place] [id number] 0304 [place] [facility] 2024-09-14 00:00:00 2024-09-14 00:00:00 Ciarra Nieves MD: [address], [address], [facility] [place] [address] , Ph. [facility], [address] [place] [id number] [facility] 2024-08-19 00:00:00 2024-08-19 00:00:00 Ciarra Nieves MD: Magay[address], [address], [facility] [place] [address] , Ph. [facility], [address] [place] [id number] 1212 [place] [facility] 2024-04-20 00:00:00 2024-04-20 00:00:00 Ciarra Nieves MD: [address] [place] [address] , Ph. [facility], [place] [place] [id number] [facility] 2023-10-21 00:00:00 2023-10-21 00:00:00 Ciarra Nieves MD: [address] [place] [address] , Ph. [facility], DR. NIEVES [id number] [facility] 2023-08-12 00:00:00 2023-08-12 00:00:00 Ciarra Nivees MD: [address], [address], [place] [address] , Ph. [facility], DR. NIEVES [id number] [facility] 2023-03-17 00:00:00 2023-03-17 00:00:00 (TEL) STLMLC STLMLC [id number] [facility] 2023-03-12 00:00:00 2023-03-12 00:00:00 OFFICE VISIT ESTAB PT LEVEL 2 STLMLC STLMLC [id number] [facility] 2023-03-10 00:00:00 2023-03-10 00:00:00 OFFICE VISIT ESTAB PT LEVEL 3 STLMLC STLMLC [id number] [facility] 2023-01-28 00:00:00 2023-01-28 00:00:00 Candice Chen, MSN, MARINE ELECTRICIAN, SURVEILLANCE AGENT-C: [address]ka [address], [address], [place] [address] , Ph. [facility], Candice Chen, MSN, SURVEILLANCE AGENT-C [id number] [facility] 2023-01-17 00:00:00 2023-01-17 00:00:00 OFFICE VISIT ESTAB PT LEVEL 3 STLMLC STLMLC [id number] [facility] 2023-01-08 00:00:00 2023-01-08 00:00:00 OFFICE VISIT ESTAB PT LEVEL 3 STLMLC STLMLC [id number] [facility] 2022-12-05 00:00:00 2022-12-05 00:00:00 OFFICE VISIT ESTAB PT LEVEL 5 STLMLC STLMLC [id number] [facility] 2022-11-21 00:00:00 2022-11-21 00:00:00 (TEL) STLMLC STLMLC [id number] [facility] 2022-10-30 00:00:00 2022-10-30 00:00:00 OFFICE VISIT ESTAB PT LEVEL 2 STLMLC STLMLC [id number] [facility] 2022-10-23 00:00:00 2022-10-23 00:00:00 Berry Osorio [facility] 1.2.840.114 350.1.13.10 4.2.7.2.686 [id number] [facility] 2022-10-09 00:00:00 2022-10-09 00:00:00 OFFICE VISIT ESTAB PT LEVEL 3 STLMLC STLMLC [id number] [facility] 2022-09-25 00:00:00 2022-09-25 00:00:00 OFFICE VISIT NEW PT LEVEL 3 STLMLC STLMLC [id number] [facility] 2022-08-27 00:00:00 2022-08-27 00:00:00 Candice Chen, MSN, MARINE ELECTRICIAN, SURVEILLANCE AGENT-C: Francheska [address], [address], [place] [address] , Ph. [facility], Candice Chen, MSN, SURVEILLANCE AGENT-C [id number] [facility] 2022-08-14 00:00:00 2022-08-14 00:00:00 Candice Chen, MSN, MARINE ELECTRICIAN, SURVEILLANCE AGENT-C: Francheska Navarro [facility] [address], [address], [place] [address] , Ph. [facility], Candice Chen, MSN, SURVEILLANCE AGENT-C [id number] [facility] 2022-08-05 00:00:00 2022-08-05 00:00:00 [facility] 1.2.840.114 350.1.13.10 4.2.7.2.686 [id number] [facility] 2022-07-30 00:00:00 2022-07-30 00:00:00 RUPAL Cobb, MARINE ELECTRICIAN, SURVEILLANCE AGENT-C: [address], [place] [address] , Ph. [facility], Candice Chen, RUPAL, SURVEILLANCE AGENT-C [id number] [facility] 2022-07-11 00:00:00 2022-07-11 00:00:00 Candice Chen, MSN, MARINE ELECTRICIAN, SURVEILLANCE AGENT-C: Francheska Navarro [facility] [address], [address], [place] [address] , Ph. [facility], Candice Chen, MSN, SURVEILLANCE AGENT-C [id number] [facility] 2022-05-16 00:00:00 2022-05-16 00:00:00 Refill Jacqueline Crowell [facility] 1.2.840.114 350.1.13.10 4.2.7.2.686 [id number] [facility] 2022-03-14 09:40:00 2022-03-14 09:40:00 Outpatient R JACQUELINE CROWELL [facility] [id number] [facility] 2022-01-08 08:40:00 2022-01-08 09:30:34 Outpatient R JACQUELINE CROWELL [facility] [id number] [facility] 2022-01-08 08:40:00 2022-01-08 09:30:34 Office Visit Jacqueline Crowell [facility] 1.2.840.114 350.1.13.10 4.2.7.2.686 [id number] [facility] 2022-01-08 00:00:00 2022-01-08 00:00:00 Orders Only Doctor Unassigned, [place] [facility] 1.2.840.114 350.1.13.10 4.2.7.2.686 [id number] [facility] 2022-01-04 09:15:00 2022-01-04 09:30:00 Bootmaker Hand Visit 2, Adc Lab Jacqueline Crowell [facility] 1.2.840.114 350.1.13.10 4.2.7.2.686 [id number] [facility] 2022-01-04 09:15:00 2022-01-04 09:15:00 Outpatient R JACQUELINE CROWELL [facility] [id number] [facility] 2022-01-03 00:00:00 2022-01-03 00:00:00 Telephone Jacqueline Crowell A [facility] 1.2.840.114 350.1.13.10 4.2.7.2.686 [id number] [facility] 2021-09-19 00:00:00 2021-09-19 00:00:00 Refill Yuliya Jacqueline Isaacs [facility] 1.2.840.114 350.1.13.10 4.2.7.2.686 [id number] [facility] 2021-07-10 08:03:12 2021-07-10 08:38:25 Office Visit Yuliya Jacqueline Ferny [facility] 1.2.840.114 350.1.13.10 4.2.7.2.686 [id number] [facility] 2021-07-10 08:00:00 2021-07-10 08:38:25 Outpatient R JACQUELINE CROWELL [facility] [id number] [facility] 2021-07-10 00:00:00 2021-07-10 00:00:00 Orders Only Doctor Unassigned, [place] [facility] 1.2.840.114 350.1.13.10 4.2.7.2.686 [id number] [facility] 2021-07-06 00:00:00 2021-07-06 00:00:00 Refill Jacqueline Crowell [facility] 1.2.840.114 350.1.13.10 4.2.7.2.686 [id number] [facility] 2021-04-17 00:00:00 2021-04-17 00:00:00 Refill Jacqueline Crowell [facility] 1.2.840.114 350.1.13.10 4.2.7.2.686 [id number] [facility] 2021-03-20 00:00:00 2021-03-20 00:00:00 Refill Jacqueline Crowell [facility] 1.2.840.114 350.1.13.10 4.2.7.2.686 [id number] [facility] 2021-02-27 00:00:00 2021-02-27 00:00:00 Telephone Jacqueline Crowell [facility] 1.2.840.114 350.1.13.10 4.2.7.2.686 [id number] [facility] 2021-02-13 00:00:00 2021-02-13 00:00:00 Telephone Jacqueline Crowell [facility] 1.2.840.114 350.1.13.10 4.2.7.2.686 [id number] [facility] 2021-02-07 00:00:00 2021-02-07 00:00:00 Orders Only Doctor Unassigned, [place] [facility] 1.2.840.114 350.1.13.10 4.2.7.2.686 [id number] [facility] 2021-01-09 10:39:52 2021-01-09 10:54:52 Bootmaker Hand Visit 2, Adc Lab Britt Crowellzabesimón Isaacs [facility] 1.2.840.114 350.1.13.10 4.2.7.2.686 [id number] [facility] 2021-01-09 08:40:01 2021-01-09 10:31:06 Office Visit Jacqueline Crowell [facility] 1.2.840.114 350.1.13.10 4.2.7.2.686 [id number] [facility] 2021-01-09 08:40:00 2021-01-09 08:40:00 Outpatient R JACQUELINE CROWELL [facility] [id number] [facility] 2020-09-15 00:00:00 2020-09-15 00:00:00 Telephone Jacqueline Crowell [facility] 1.2.840.114 350.1.13.10 4.2.7.2.686 [id number] [facility] 2020-09-15 00:00:00 2020-09-15 00:00:00 [facility] 1.2.840.114 350.1.13.10 4.2.7.2.686 [id number] [facility] 2020-08-25 00:00:00 2020-08-25 00:00:00 [facility] 1.2.840.114 350.1.13.10 4.2.7.2.686 [id number] [facility] 2020-05-22 11:19:37 2020-05-22 12:00:07 [facility] 1.2.840.114 350.1.13.10 4.2.7.2.686 [id number] [facility] 2020-05-22 11:20:00 2020-05-22 11:20:00 Outpatient R JACQUELINE CROWELL [facility] [id number] [facility] 2020-03-08 00:00:00 2020-03-08 00:00:00 [facility]ill [facility] 1.2.840.114 350.1.13.10 4.2.7.2.686 [id number] [facility] 2020-01-07 00:00:00 2020-01-07 00:00:00 Telephone [facility] 1.2.840.114 350.1.13.10 4.2.7.2.686 [id number] [facility] 2020-01-03 00:00:00 2020-01-03 00:00:00 Refill Jacqueline Crowell [facility] 1.2.840.114 350.1.13.10 4.2.7.2.686 [id number] [facility] 2019-11-30 00:00:00 2019-11-30 00:00:00 Refill Jacqueline Crowell [facility] 1.2.840.114 350.1.13.10 4.2.7.2.686 [id number] [facility] 2019-11-23 10:33:09 2019-11-23 10:33:37 Telemedici ne Visit Jacqueline Crowell [facility] 1.2.840.114 350.1.13.10 4.2.7.2.686 [id number] [facility] 2019-11-23 08:40:00 2019-11-23 08:40:00 Outpatient R JACQUELINE CROWELL [facility] [id number] [facility] 2019-10-28 00:00:00 2019-10-28 00:00:00 Refill Jacqueline Crowell [facility] 1.2.840.114 350.1.13.10 4.2.7.2.686 [id number] [facility] 2019-09-24 00:00:00 2019-09-24 00:00:00 Refill Jacqueline Crowell [facility] 1.2.840.114 350.1.13.10 4.2.7.2.686 [id number] [facility] 2019-05-25 08:52:34 2019-05-25 09:07:34 Bootmaker Hand Visit 2, Adc Lab Jacqueline Crowell [facility] 1.2.840.114 350.1.13.10 4.2.7.2.686 [id number] [facility] 2019-05-25 00:00:00 2019-05-25 00:00:00 Letter (Out) Doctor Unassigned, [place] [facility] 1.2.840.114 350.1.13.10 4.2.7.2.686 [id number] [facility] Results Test Description Test Time Test Comments Results Result Co mments Source [facility] Notes Date/Time Note Provider Source 2018-05-04 13:22:12 Rx sent in. Let patient know. [facility]
[2025-04-13 14:02] LABS: Absolute Lymphocytes (CBC) 0.7 K/uL (0.7-4.9); Hematocrit 37.3 % (39.6-49.0); Hemoglobin 12.6 g/dL (13.6-17.9); MCH 33.9 pg (27.0-35.0); MCHC 33.7 g/dL (32.0-36.0); MCV 100.6 fL (80-100); MPV 8.9 fL (7.6-11.3); Nucleated RBC Absolute Count 0.0 (0-0); Nucleated Red Blood Cells % 0.1 % (0-0); RBC Red Blood Cell Count 3.71 M/uL (4.33-5.43); White Blood Count 7.60 thou/uL (4.3-10.9)
[2025-04-13] MEDS ORDERED: ENOXAPARIN 100 MG/ML SYR SQ ONE (14:08)
[2025-04-13] MEDS ORDERED: METOPROLOL TARTRATE 5 MG/5 ML INJ IV ONE (14:08)
[2025-04-13 14:26] LABS: ALT/SGPT 113.0 U/L (16-61); AST/SGOT 130.0 U/L (15-37); Albumin 3.6 g/dL (3.4-5.0); Albumin/Globulin Ratio 1.0 (1.1-1.8); Alkaline Phosphatase 69.0 U/L (45-117); Anion Gap 13.7 mEq/L (5.0-15.0); BUN Blood Urea Nitrogen 29.0 mg/dL (7-18); Bilirubin Indirect, Calculated 0.9 mg/dL (0.2-0.8); Globulin 3.5 g/dL (2.3-3.5); Glucose Level 138.0 mg/dL (74-106); Magnesium 1.9 mg/dL (1.6-2.4); NT PRO-BNP 8146.0 pg/mL (<125); Potassium 4.7 mEq/L (3.5-5.1); Troponin High Sensitivity 47.8 pg/mL (<58.9)
--- NOTE | 2025-04-13 14:28 | RAD REPORT ---
EXAM: Chest Single View HISTORY: 59 years Male PALPITATIONS COMPARISON: No prior exams FINDINGS: LUNGS/PLEURA: The lungs are clear. No pleural effusions or pneumothorax. No pulmonary edema. CARDIAC/MEDIASTINUM: Moderate cardiomegaly. UPPER ABDOMEN: No significant abnormality. BONES: No acute abnormality. LINES/TUBES/OTHER: N/A IMPRESSION: No evidence of acute cardiopulmonary disease.
[2025-04-13 14:30] LABS: PT Prothrombin Time 13.7 SECONDS (10-13.0); Protime INR 1.22
--- NOTE | 2025-04-13 14:41 | EDPHYS ---
Physician Documentation [facility] Name: Sean Hernandez Age: 59 yrs Sex: Male : 1965 Arrival Date: 04/13/2025 Time: 13:26 Bed 4 Private MD: ED Physician Raymon Sanchez HPI: 04/13 14:09 This 59 yrs old Male presents to ER via Wheelchair with complaints of Cough, Shortness sp3 Of Breath, Abnormal Lab Results - ekg, fatigue. 14:09 59-year-old male with history of hypertension, GERD, prostate hypertrophy presents sp3 referred from the urgent care for new onset atrial fibrillation. Patient a few monitor for upper respiratory infection symptoms. He also complains of mild shortness of breath. He denies any chest pain, back pain, abdominal pain, vomiting, diarrhea or any other signs or symptoms on ROS at this time. Patient cannot pinpoint the exact time of onset.. Historical: - Allergies: 13:41 No Known Allergies; me1 - PMHx: 13:41 Hypertensive disorder; benign prostate hypertrophy; Gastroesophageal reflux disease; me1 insomnia; - PSHx: 13:41 Repair of inguinal hernia; Colectomy; me1 - Immunization history:: Adult Immunizations up to date. - Infectious Disease History:: Denies. - Social history:: Smoking status: Patient denies any tobacco usage or history of. ROS: 14:10 Constitutional: Negative for fever, chills, and weight loss, Eyes: Negative for injury, sp3 pain, redness, and discharge, Neck: Negative for injury, pain, and swelling, Abdomen/GI: Negative for abdominal pain, nausea, vomiting, diarrhea, and constipation, Back: Negative for injury and pain, MS/Extremity: Negative for injury and deformity, Skin: Negative for injury, rash, and discoloration, Neuro: Negative for headache, weakness, numbness, tingling, and seizure, Psych: Negative for depression, anxiety, suicide ideation, homicidal ideation, and hallucinations, Allergy/Immunology: Negative for hives, rash, and allergies, Endocrine: Negative for neck swelling, polydipsia, polyuria, polyphagia, and marked weight changes, Hematologic/Lymphatic: Negative for swollen nodes, abnormal bleeding, and unusual bruising, 14:10 All other systems are negative, Exam: 14:10 Constitutional: This is a well developed, well nourished patient who is awake, alert, sp3 and in no acute distress. Head/Face: Normocephalic, atraumatic. Eyes: Pupils equal round and reactive to light, extra-ocular motions intact. Lids and lashes normal. Conjunctiva and sclera are non-icteric and not injected. Cornea within normal limits. Periorbital areas with no swelling, redness, or edema. ENT: Nares patent. No nasal discharge, no septal abnormalities noted. External auditory canals are clear. Oropharynx with no redness, swelling, or masses, exudates, or evidence of obstruction, uvula midline. Mucous membranes moist. Neck: Trachea midline, no thyromegaly or masses palpated, and no cervical lymphadenopathy. Supple, full range of motion without nuchal rigidity, or vertebral point tenderness. No Meningismus. Chest/axilla: Normal chest wall appearance and motion. Nontender with no deformity. No lesions are appreciated. Respiratory: Lungs have equal breath sounds bilaterally, clear to auscultation and percussion. No rales, rhonchi or wheezes noted. No increased work of breathing, no retractions or nasal flaring. Abdomen/GI: Soft, non-tender, with normal bowel sounds. No distension or tympany. No guarding or rebound. No evidence of tenderness throughout. Back: No spinal tenderness. No costovertebral tenderness. Full range of motion. Skin: Warm, dry with normal turgor. Normal color with no rashes, no lesions, and no evidence of cellulitis. MS/ Extremity: Pulses equal, no cyanosis. Neurovascular intact. Full, normal range of motion. Neuro: Awake and alert, GCS 15, oriented to person, place, time, and situation. Cranial nerves II-XII grossly intact. Motor strength 5/5 in all extremities. Sensory grossly intact. Cerebellar exam normal. Normal gait. Psych: Awake, alert, with orientation to person, place and time. Behavior, mood, and affect are within normal limits. 14:10 Cardiovascular: Patient tachycardic with an irregularly irregular rhythm consistent with atrial fibrillation, 14:11 ECG was reviewed by the Attending Physician. EKG demonstrates atrial fibrillation with sp3 RVR at 131 bpm, incomplete right bundle branch block, QTc of [address]/T changes without evidence of acute ischemia. Vital Signs: 13:39 BP 151 / 72; Pulse 70; Resp 16; Temp 98.1; Pulse Ox 100% ; Weight 86.18 kg; Height 5 me1 ft. 7 in. ; 14:03 Pulse 129; Resp 19; Pulse Ox 97% on R/A; Pain 0/10; hb 14:15 BP 104 / 73; Pulse 114; Resp 18; Pulse Ox 98% on R/A; ph 14:37 BP 88 / 77; Pulse 87; Resp 18; Pulse Ox 98% on R/A; ph 14:53 BP 92 / 75; Pulse 94; Resp 18; Pulse Ox 95% on R/A; ph 15:18 BP 92 / 66; Pulse 105; Resp 18; Pulse Ox 97% on R/A; ph 13:39 Body Mass Index 29.76 (86.18 kg, 170.18 cm) me1 14:03 Pain Scale: Adult hb MDM: 13:34 Medical Screening Exam initiated sp3 14:11 Data reviewed: vital signs, nurses notes, lab test result(s), EKG, radiologic studies. sp3 ED course: 59-year-old male with palpitations, shortness of breath with new onset atrial fibrillation of unknown duration. We will anticoagulate with 90 mg of Lovenox and rate control with Lopressor with additional calcium channel blockers as needed. Patient will be admitted to internal medicine with cardiology consultation.. 14:39 ED course: Patient with multiple PVCs and mild sinus pauses. Heart rate now between 95 sp3 and 105. Cardiology updated. Patient will be admitted to internal medicine for rate control and further management.. 15:30 ED course: Patient having chest pain now. Repeat EKG demonstrates atrial fibrillation sp3 at a ventricular response of [address] changes other than T wave inversions inferolaterally. Patient is already anticoagulated and we will treat with pain control and repeat troponin. Blood pressure 92/66 hold nitroglycerin.. 04/13 13:34 Order name: Basic Metabolic Panel; Complete Time: 14:29 sp3 04/13 13:34 Order name: CBC with Diff; Complete Time: 14:11 sp3 04/13 13:34 Order name: LFT's; Complete Time: 14:29 sp3 04/13 13:34 Order name: Magnesium; Complete Time: 14:29 sp3 04/13 13:34 Order name: NT PRO-BNP; Complete Time: 14:29 sp3 08 13:34 Order name: PT-INR; Complete Time: 14:32 sp3 04/13 13:34 Order name: Troponin HS; Complete Time: 14:29 sp3 08 15:32 Order name: Troponin High Sensitivity; Complete Time: 16:06 ap3 04/13 16:18 Order name: NT PRO-BNP EDMS 04/13 16:18 Order name: NT PRO-BNP EDMS 04/13 16:18 Order name: Troponin High Sensitivity EDMS 04/13 16:18 Order name: Troponin High Sensitivity EDMS 04/13 16:18 Order name: Troponin High Sensitivity EDMS 04/13 16:18 Order name: Troponin High Sensitivity EDMS 04/13 13:34 Order name: XRAY Chest (1 view); Complete Time: 14:29 sp3 04/13 16:18 Order name: Echo with Doppler EDMS 04/13 16:18 Order name: CONS Physician Consult EDMS 04/13 13:34 Order name: Cardiac monitoring; Complete Time: 13:54 sp3 04/13 13:34 Order name: EKG - Nurse/Tech; Complete Time: 13:54 sp3 04/13 13:34 Order name: IV Saline Lock; Complete Time: 14:03 sp3 04/13 13:34 Order name: Labs collected and sent; Complete Time: 14:03 sp3 04/13 13:34 Order name: O2 Per Protocol; Complete Time: 14:03 sp3 04/13 13:34 Order name: O2 Sat Monitoring; Complete Time: 14:03 sp3 Administered Medications: 14:14 Drug: Metoprolol IVP 5 mg IVP every 5 minutes; Hold for SBP < 100 or HR < 60. x3 Route: ph IVP; Site: right antecubital; 15:19 Follow up: Response: No adverse reaction ph 14:14 Drug: Enoxaparin Sub-Q 90 mg Sub-Q once Route: Sub-Q; Site: right lower abdomen; ph 15:19 Follow up: Response: No adverse reaction ph 15:29 Drug: Ondansetron IVP 4 mg IVP once; over 2 minutes Route: IVP; Site: right antecubital;ph Disposition Summary: 04/13/25 14:41 Hospitalization Ordered Notes: Hospitalization Status: Inpatient Admission sp3 Provider: Pritesh Walls sp3 Location: Intensive Care Unit sp3 Condition: Stable sp3 Problem: new sp3 Symptoms: are unchanged sp3 Bed/Room Type: Standard sp3 Room Assignment: 2-(04/13/25 16:31) bd Diagnosis - New onset atrial fibrillation with RVR, palpitations sp3 Forms: - Medication Reconciliation Form sp3 - SBAR form sp3 - Leadership Thank You Letter sp3 Critical care time excluding procedures: 14:12 Critical care time: Bedside Care: 10 minutes, Consultation: 10 minutes, Family sp3 Intervention: 10 minutes. Total time: 30 minutes Signatures: Dispatcher [employer] EDMS Jennifer Gallego Patricia, RN RN Raymon Sanchez MD MD sp3 aYdira Mcmahon RN RN al1 Ishmael, Messi, STONE POLISHER STONE POLISHER cr8 Corrections: (The following items were deleted from the chart) 13:35 13:35 BASIC METABOLIC PANEL+C.LAB.BRZ ordered. EDMS EDMS 13:35 13:35 CBC+H.LAB.BRZ ordered. EDMS EDMS 13:35 13:35 HEPATIC FUNCTION+C.LAB.BRZ ordered. EDMS EDMS 13:35 13:35 MAGNESIUM+C.LAB.BRZ ordered. EDMS EDMS 13:35 13:35 PROBNP+C.LAB.BRZ ordered. EDMS EDMS 13:35 13:35 PROTIME (+INR)+COAG.LAB.BRZ ordered. EDMS EDMS 13:35 13:35 Troponin High Sensitivity+C.LAB.BRZ ordered. EDMS EDMS 13:35 13:35 Chest Single View+RAD.RAD.BRZ ordered. EDMS EDMS 16:31 14:41 sp3 bd
--- NOTE | 2025-04-13 14:41 | ER ---
Nurse's Notes [facility] Name: Sean Hernandez Age: 59 yrs Sex: Male : 1965 Arrival Date: 04/13/2025 Time: 13:26 Bed 4 Private MD: Diagnosis: New onset atrial fibrillation with RVR, palpitations Presentation: 04/13 13:39 Chief complaint: Patient states: cough, congestion, fatigue and body aches since last me1 Friday. Report SOB with exertion for some time before that. Went to urgent care and was sent here for new onset of Afib. Reports swollen ankles as well. Coronavirus screen: Vaccine status: Patient reports being unvaccinated. Ebola Screen: No symptoms or risks identified at this time. Initial Sepsis Screen: Does the patient meet any 2 criteria? No. Patient's initial sepsis screen is negative. Does the patient have a suspected source of infection? No. Patient's initial sepsis screen is negative. Risk Assessment: Do you want to hurt yourself or someone else? Patient reports no desire to harm self or others. Onset of symptoms was April 08, 2025. 13:39 Method Of Arrival: Wheelchair me1 13:39 Acuity: BRYANNA 3 me1 Triage Assessment: 14:03 Respiratory: hb Historical: - Allergies: 13:41 No Known Allergies; me1 - PMHx: 13:41 Hypertensive disorder; benign prostate hypertrophy; Gastroesophageal reflux disease; me1 insomnia; - PSHx: 13:41 Repair of inguinal hernia; Colectomy; me1 - Immunization history:: Adult Immunizations up to date. - Infectious Disease History:: Denies. - Social history:: Smoking status: Patient denies any tobacco usage or history of. Screenin:01 [facility] ED Fall Risk Assessment (Adult) History of falling in the last 3 months, hb including since admission No falls in past 3 months (0 pts) Confusion or Disorientation No (0 pts) Intoxicated or Sedated No (0 pts) Impaired Gait No (0 pts) Mobility Assist Device Used No (0 pt) Altered Elimination No (0 pt) Score/Fall Risk Level 0 - 2 = Low Risk Oriented to surroundings, Maintained a safe environment, Educated pt \T\ family on fall prevention, incl call for assistance when getting out of bed. Abuse screen: Denies threats or abuse. Denies injuries from another. Nutritional screening: No deficits noted. Tuberculosis screening: No symptoms or risk factors identified. Assessment: 14:01 General: Appears in no apparent distress. Behavior is calm, cooperative. Pain: Denies hb pain. Neuro: Level of Consciousness is awake, alert, obeys commands, Oriented to person, place, time, situation. Cardiovascular: Patient's skin is warm and dry. Rhythm is atrial fibrillation With PVC's. Respiratory: Reports shortness of breath at rest on exertion Airway is patent Respiratory effort is even, unlabored, Respiratory pattern is regular, symmetrical, Breath sounds are clear bilaterally. GI: No signs and/or symptoms were reported involving the gastrointestinal system. : No signs and/or symptoms were reported regarding the genitourinary system. EENT: No signs and/or symptoms were reported regarding the EENT system. Derm: Skin is pink, warm \T\ dry. Musculoskeletal: No signs and/or symptoms reported regarding the musculoskeletal system. Vital Signs: 13:39 BP 151 / 72; Pulse 70; Resp 16; Temp 98.1; Pulse Ox 100% ; Weight 86.18 kg; Height 5 me1 ft. 7 in. ; 14:03 Pulse 129; Resp 19; Pulse Ox 97% on R/A; Pain 0/10; hb 14:15 BP 104 / 73; Pulse 114; Resp 18; Pulse Ox 98% on R/A; ph 14:37 BP 88 / 77; Pulse 87; Resp 18; Pulse Ox 98% on R/A; ph 14:53 BP 92 / 75; Pulse 94; Resp 18; Pulse Ox 95% on R/A; ph 15:18 BP 92 / 66; Pulse 105; Resp 18; Pulse Ox 97% on R/A; ph 13:39 Body Mass Index 29.76 (86.18 kg, 170.18 cm) me1 14:03 Pain Scale: Adult hb ED Course: 13:28 Patient arrived in ED. im 13:33 Raymon Sanchez MD is Attending Physician. sp3 13:41 Triage completed. me1 13:41 Arm band placed on Patient placed in an exam room. me1 13:53 Initial lab(s) drawn, by me, sent to lab. Inserted saline lock: 20 gauge in right hb antecubital area, using aseptic technique. Blood collected. Flushed with 10 mL NS. 13:54 EKG done, by orthopedic tech. ts3 14:00 Carina Vora, RN is Primary Nurse. hb 14:01 Patient has correct armband on for positive identification. Bed in low position. Call hb light in reach. Provided Education on: tests, result times, call light . Client placed on continuous cardiac and pulse oximetry monitoring. NIBP monitoring applied. store gift wrap associate on. Pulse ox on. NIBP on. 14:03 Basic Metabolic Panel Sent. hb 14:03 LFT's Sent. hb 14:03 Magnesium Sent. hb 14:03 NT PRO-BNP Sent. hb 14:03 PT-INR Sent. hb 14:03 Troponin HS Sent. hb 14:14 XRAY Chest (1 view) In Process Unspecified. EDMS 14:40 Pritesh Walls MD is Hospitalizing Provider. sp3 15:41 Troponin High Sensitivity Sent. hb Administered Medications: 14:14 Drug: Metoprolol IVP 5 mg IVP every 5 minutes; Hold for SBP < 100 or HR < 60. x3 Route: ph IVP; Site: right antecubital; 15:19 Follow up: Response: No adverse reaction ph 14:14 Drug: Enoxaparin Sub-Q 90 mg Sub-Q once Route: Sub-Q; Site: right lower abdomen; ph 15:19 Follow up: Response: No adverse reaction ph 15:29 Drug: Ondansetron IVP 4 mg IVP once; over 2 minutes Route: IVP; Site: right antecubital;ph Medication: 14:01 VIS not applicable for this client. hb Outcome: 14:41 Decision to Hospitalize by Provider. sp3 17:15 Patient left the ED. hb Signatures: Dispatcher [employer] EDVA Anin Ortiz, RN RN Carina Vora, RN RN Raymon Sanchez MD MD sp3 Agnieszka Crook Michelle, RN RN ct1 Kiana Seals ts3
[2025-04-13] MEDS ORDERED: ONDANSETRON 4 MG/2 ML VIAL ONE (15:25)
[2025-04-13] MEDS ORDERED: AMIODARONE HCL 150 MG in D5W 100 ML IV STA (16:52)
[2025-04-13] MEDS ORDERED: AMIODARONE HCL 900 MG in Dextrose 5%-Water 482 ML IV SCH (17:00)
--- NOTE | 2025-04-13 17:14 | P.CNS ---
Date of Consult: 04/13/25 Chief Complaint: SOB, Weakness, AF History of Present Illness: Patient with no significant PMH presented with weakness, bilateral lower extremities swelling, also report occasional chest pain during stress, no palpitations, no syncope, report PATEL. Allergies No Known Allergies Allergy (Verified 02/25/23 07:48) Home medications list reviewed: Yes Home Medications: Cetirizine HCl [Allergy] 10 mg PO DAILY 01/01/23 Cholecalciferol (Vitamin D3) [D3-5000] 125 mcg PO DAILY 01/01/23 Ibuprofen [Ibu] 600 mg PO DAILY PRN 01/01/23 Mecobalamin [B12 Active] 1 tab PO DAILY 01/01/23 Multivitamin 1 each PO DAILY 01/01/23 Omeprazole 20 mg PO DAILY 01/01/23 Tamsulosin [Flomax*] 0.4 mg PO DAILY 01/01/23 Zolpidem Tartrate 10 mg PO BEDTIME 01/01/23 lisinopriL [Zestril] 40 mg PO DAILY 01/01/23 nitrofurantoin macrocrystaL [Macrodantin] 100 mg PO BEDTIME 01/01/23 - Past Medical/Surgical History Diabetic: No -: HTN -: frequent UTI over last year -: colonoscopy -: cystoscopy with biopsies - Social History Smoking Status: Never smoker Alcohol use: Yes CD- Drugs: No Caffeine use: Yes Review of Systems 10-point ROS is otherwise unremarkable Physical Examination General: Alert, In no apparent distress HEENT: Atraumatic, PERRLA, Mucous membr. moist/pink, EOMI, Sclerae nonicteric Neck: Supple, 2+ carotid pulse no bruit, No LAD, Without JVD or thyroid abnormality Respiratory: Normal air movement, Crackles/rales Cardiovascular: Normal S1 S2, Edema, Irregular heart rate/rhythm Gastrointestinal: Normal bowel sounds, No tenderness Musculoskeletal: No tenderness Integumentary: No rashes Neurological: Normal gait, Normal speech, Normal tone, Normal affect Lymphatics: No axilla or inguinal lymphadenopathy Laboratory Data (last 24 hrs) 04/13/25 04/13/25 04/13/25 13:52 13:52 13:52 WBC 7.60 Hgb 12.6 L Hct 37.3 L Plt Count 224 PT 13.7 H INR 1.22 Sodium 133 L Potassium 4.7 BUN 29 H Creatinine 1.06 Glucose 138 H Magnesium 1.9 Total Bilirubin 1.3 H AST 130 H ALT 113 H Alkaline Phosphatase 69 - Problems (1) Atrial fibrillation Current Visit: Yes Status: Acute Plan: recommend to start Sotalol 80 mg po BID Continue therapeutic lovenox for now monitor on tele get echo NPO after midnight for possible JAIME DCCV in am (2) Bilateral lower extremity edema Current Visit: Yes Status: Acute Plan: agree with lasix 20 mg IV BID Monitor input and output and electrolytes get echo (3) PVC (premature ventricular contraction) Current Visit: Yes Status: Acute Plan: start sotalol as above. NPO after midnight for coronary angiogram in am
[2025-04-13] MEDS: MAGNESIUM SULFATE 1 gm IVPB 1 GM/100 ML BAG IV ONE (17:56)
[2025-04-13] MEDS: SOTALOL HCL 80 MG TAB PO SCH (17:56)
[2025-04-13] MEDS: ENOXAPARIN 100 MG/ML SYR SQ SCH (17:59)
[2025-04-13 18:13] VITALS: BMI 29.7
[2025-04-13] MEDS ORDERED: GUAIFENESIN/CODEINE 5ML UCUP PO PRN (18:40)
[2025-04-13] MEDS ORDERED: ALBUTEROL 2.5 MG/3 ML NEB SOL NEB PRN (18:42)
[2025-04-13] MEDS ORDERED: IPRATROPIUM BROM 0.5MG/2.5ML NEB PRN (18:42)
[2025-04-13] MEDS: NA CHLORIDE 0.9% 1,000 ML IV SCH (19:42)
[2025-04-13] MEDS: METHYLPREDNISOLONE 40 MG INJ IV ONE (19:42)
[2025-04-13] MEDS: NA CHLORIDE 0.9% 250 ML IV ONE (19:42)
[2025-04-13 20:37] VITALS: TEMP 97.2
[2025-04-13] MEDS: ENOXAPARIN 100 MG/ML SYR SQ ONE (20:42)
[2025-04-13] MEDS ORDERED: ENOXAPARIN 100 MG/ML SYR SQ SCH (21:00)
[2025-04-13] MEDS: ONDANSETRON 4 MG/2 ML VIAL IV PRN (21:00)
--- NOTE | 2025-04-13 21:49 | RAD REPORT ---
EXAMINATION: Thorax Wo Con CLINICAL INDICATION: Male, 59 years old. pneumonia TECHNIQUE: Routine CT scan of the chest without intravenous contrast. One or more of the following do se reduction techniques were used: Automated exposure control, adjustment of the mA and/or kV according to patient size, and/or iterative reconstruction. Unless otherwise specified, incidental fi ndings do not require dedicated imaging follow-up. [id number]. COMPARISON: 01/07/2023 FINDINGS: LOWER NECK: Visualized thyroid gland and soft tissues are normal. MEDIASTINUM AND LYMPH NODES: No mediastinal mass or fluid collection. Normal size mediastinal, hilar, and axillary lymph nodes. Small hiatal hernia with thickened distal esophagus. THORACIC AORTA: No thoracic aortic aneurysm. PULMONARY ARTERIES: Caliber is within normal limits. HEART: Moderate cardiomegaly. No coronary calcifications.No significant pericardial effusion. LUNGS AND AIRWAYS: No evidence of airspace or interstitial process. Unchanged 4 mm right lower lobe o r nodule which is benign. PLEURA: No pleural effusions. No pneumothorax. OSSEOUS STRUCTURES AND CHEST WALL: Multilevel degenerative changes. No acute fracture. UPPER ABDOMEN: No acute abnormalities.Benign appearing low density liver lesions. Mild bladder wall t hickening. IMPRESSION: No acute or significant abnormalities. Specifically, no evidence of pneumonia. Moderate cardiomegaly. Partially imaged gallbladder wall thickening may be related to liver disease or possibly right heart failure.
[2025-04-13] MEDS: ZOLPIDEM TARTRATE 10 MG TABLET PO PRN (21:59)
[2025-04-13] MEDS ORDERED: SODIUM CHLORIDE 0.9% 10ML INJ IV PRN (22:32)
[2025-04-13] MEDS: PANTOPRAZOLE 40 MG INJ IVP SCH (23:03)
[2025-04-13] MEDS: PROMETHAZINE INJ 25 MG/ML AMP IM ONE (23:03)
[2025-04-13] MEDS: NA CHLORIDE 0.9% 500 ML IV ONE (23:03)
[2025-04-13] MEDS: HYDROMORPHONE HCL 0.5 MG/0.5 ML INJ ONE (23:51)
[2025-04-13] MEDS: NOREPINEPHRINE BITARTRATE/D5W 4 MG/250 ML KIT IV ONE (23:52)
[2025-04-14] MEDS: NOREPINEPHRINE 4 MG in D5W 250 ML IV SCH
[2025-04-14] MEDS: METHYLPREDNISOLONE 40 MG INJ IV SCH
[2025-04-14 00:25] LABS: Absolute Lymphocytes (CBC) 0.7 K/uL (0.7-4.9); Hematocrit 41.7 % (39.6-49.0); Hemoglobin 13.9 g/dL (13.6-17.9); MCH 34.4 pg (27.0-35.0); MCHC 33.3 g/dL (32.0-36.0); MCV 103.4 fL (80-100); MPV 9.5 fL (7.6-11.3); Nucleated RBC Absolute Count 0.0 (0-0); Nucleated Red Blood Cells % 0.2 % (0-0); RBC Red Blood Cell Count 4.04 M/uL (4.33-5.43); White Blood Count 8.60 thou/uL (4.3-10.9)
--- NOTE | 2025-04-14 00:41 | P.HP ---
Certification for Inpatient Patient admitted to: Inpatient With expected LOS: >2 Midnights Patient will require the following post-hospital care: None Practitioner: I am a practitioner with admitting privileges, knowledge of patient current condition, hospital course, and medical plan of care. Services: Services provided to patient in accordance with Admission requirements found in Title 42 Section 412.3 of the Code of Federal Regulations Patient History Date of Service: 04/13/25 Reason for admission: SOB, Weakness, Atrial fibrillation with rapid ventricular response History of Present Illness: Patient is a 59-year-old gentleman who presents to the emergency room with atrial fibrillation with rapid ventricular response. Patient was seen at the [facility] earlier in the day. EKG performed shows atrial fibrillation. Patient has been coughing and congested. Patient had viral testing done a couple of weeks ago that were unremarkable. Patient continues to feel poorly. Patient denies any prior cardiac history. In the ER patient's workup was unremarkable. Patient had chest x-ray that was unremarkable. Labs denies show anything overly concerning. Patient's LFTs are elevated. Patient's BNP is also elevated. Patient is having a persistent consult do a CT of the chest without contrast to further evaluate. At this time patient will be admitted to the hospital to the intensive care unit for closer monitoring. Allergies No Known Allergies Allergy (Verified 02/25/23 07:48) Home Medications: Cetirizine HCl [Allergy] 10 mg PO DAILY 01/01/23 Ibuprofen [Ibu] 600 mg PO DAILY PRN 01/01/23 Mecobalamin [B12 Active] 1 tab PO DAILY 01/01/23 Multivitamin 1 each PO DAILY 01/01/23 Omeprazole 20 mg PO DAILY 01/01/23 Tamsulosin [Flomax*] 0.4 mg PO DAILY 01/01/23 Zolpidem Tartrate 10 mg PO BEDTIME 01/01/23 lisinopriL [Zestril] 40 mg PO DAILY 01/01/23 Amlodipine [Norvasc] 5 mg PO DAILY 04/13/25 Benzonatate [Tessalon Perle] 100 mg PO TID 04/13/25 Cefdinir [Omnicef] 300 mg PO DAILY 04/13/25 Ergocalciferol (Vitamin D2) [Vitamin D2] 50,000 unit PO EVERY 7TH DAY 04/13/25 Fluticasone Propionate [Flonase Allergy Relief] 1 spray IH DAILY 04/13/25 - Past Medical/Surgical History Has patient received pneumonia vaccine in the past: No Diabetic: No -: HTN -: frequent UTI -: colon cancer- surgery -: heat stroke 3 years ago -: colonoscopy -: cystoscopy with biopsies - Family History Mother Medical History: Heart disease - Social History Smoking Status: Never smoker Alcohol use: Yes CD- Drugs: No Caffeine use: Yes Place of Residence: Home Review of Systems 10-point ROS is otherwise unremarkable Physical Examination - Vital Signs Temperature: 97.2 F Blood Pressure: 89/71 Pulse: 91 Respirations: 22 Pulse Ox (%): 94 - Physical Exam General: Alert, In no apparent distress, Oriented x3 HEENT: Atraumatic, PERRLA, Mucous membr. moist/pink, EOMI, Sclerae nonicteric Neck: Supple, 2+ carotid pulse no bruit, No LAD, Without JVD or thyroid abnormality Respiratory: Clear to auscultation bilaterally, Normal air movement Cardiovascular: Irregular heart rate/rhythm Gastrointestinal: Normal bowel sounds, Soft and benign, Non-distended, No tenderness Musculoskeletal: No clubbing, No swelling, No tenderness Integumentary: No rashes Neurological: Normal gait, Normal speech, Normal strength at 5/5 x4 extr, Normal tone, Sensation intact, Cranial nerves 3-12 intact, Normal affect Lymphatics: No axilla or inguinal lymphadenopathy - Studies Laboratory Data (last 24 hrs) 04/13/25 04/13/25 04/13/25 15:37 13:52 13:52 WBC 7.60 Hgb 12.6 L Hct 37.3 L Plt Count 224 PT 13.7 H INR 1.22 Sodium Potassium BUN Creatinine Glucose Magnesium 1.9 Total Bilirubin AST ALT Alkaline Phosphatase 04/13/25 13:52 WBC Hgb Hct Plt Count PT INR Sodium 133 L Potassium 4.7 BUN 29 H Creatinine 1.06 Glucose 138 H Magnesium 1.9 Total Bilirubin 1.3 H AST 130 H ALT 113 H Alkaline Phosphatase 69 Assessment & Plan - Problems (Diagnosis) (1) Atrial fibrillation with rapid ventricular response Current Visit: Yes Status: Acute (2) Upper respiratory infection Current Visit: Yes Status: Acute (3) Abnormal AST and ALT Current Visit: Yes Status: Acute (4) Elevated brain natriuretic peptide (BNP) level Current Visit: Yes Status: Acute (5) Elevated protime Current Visit: Yes Status: Acute (6) History of colon cancer Current Visit: Yes Status: Acute - Plan Plan: 1. Atrial fibrillation with rapid ventricular response; cardiology recommended sotalol at this time. This was given earlier today. Continue with dose of Lovenox cardiac catheterization the morning. echocardiogram is pending. BNP has been elevated. Will gently hydrate as patient appears to have an upper respiratory infection and will get a CT of the chest to further evaluate. continue with broad-spectrum antibiotic coverage. Will check procalcitonin level in a.m. as well. Patient will be admitted for inpatient hospitalization to the intensive care unit. Critical care time spent on patient care was 45 minutes. 2. History of elevated ALT / AST and total bilirubin in protime; patient appears to have cirrhosis. Will monitor liver function testing and will do additional liver testing. Discussed with patient regarding additional medical issues that can exacerbate liver disease. 3. Macrocytic anemia; check B12 level. LDH level pending as well. Possible hemolysis. Bilirubin is elevated-mostly indirect bilirubin. 4. Gi DVT prophylaxis Discharge Plan: Home Plan to discharge in: Greater than 2 days - Advance Directives Does patient have a Living Will: No Does patient have a Durable POA for Healthcare: No - Code Status/Comfort Care Code Status Assessed: Yes Code Status: Full Code Critical Care: Yes Time Spent Managing PTS Care (In Minutes): 45
[2025-04-14] MEDS ORDERED: NA CHLORIDE 0.9% 500 ML ONE (00:42)
[2025-04-14] MEDS ORDERED: DOPAMINE HCL IN DEXTROSE 5 % 400 MG/250 ML KIT IV ONE (00:46)
[2025-04-14 00:50] LABS: Differential Total Cells Count 100; Segmented Neutrophils 77 % (40-80)
[2025-04-14] MEDS: DOPAMINE/D5W 400 MG/250 ML BAG IV SCH (00:50)
[2025-04-14 00:51] LABS: Blood Morphology Comment NOTED (NOT SEEN); Polychromasia 1+
[2025-04-14] MEDS: HYDROMORPHONE HCL 0.5 MG/0.5 ML INJ IV ONE (00:52)
[2025-04-14] MEDS: FENTANYL CITR 100 MCG/2 ML IV ONE ×2 (00:54→02:15)
[2025-04-14 01:05] LABS: ALT/SGPT 1172.0 U/L (16-61); AST/SGOT 1962.0 U/L (15-37); Albumin 3.4 g/dL (3.4-5.0); Albumin/Globulin Ratio 1.0 (1.1-1.8); Alkaline Phosphatase 104.0 U/L (45-117); Anion Gap 18.2 mEq/L (5.0-15.0); BUN Blood Urea Nitrogen 36.0 mg/dL (7-18); Globulin 3.5 g/dL (2.3-3.5); Glucose Level 151.0 mg/dL (74-106); Troponin High Sensitivity 15.3 pg/mL (<58.9)
[2025-04-14 01:09] LABS: Potassium 6.2 mEq/L (3.5-5.1)
[2025-04-14] MEDS: SODIUM BICARBONATE 8.4% IV ONE (01:15)
[2025-04-14] MEDS: SODIUM BICARB 50 MEQ/50ML VIAL IV ONE (01:18)
[2025-04-14] MEDS ORDERED: D50W 25 GM/50 ML SYRINGE IV PRN (01:20)
[2025-04-14] MEDS ORDERED: D10W 125 ML IV PRN (01:24)
[2025-04-14] MEDS ORDERED: INSULIN REGULAR (HUMAN) 100 UNIT/ML ONE (01:24)
[2025-04-14] MEDS ORDERED: CALCIUM GLUCONATE 1 GM IVPB 1 GM/50 ML BAG IV ONE (01:25)
[2025-04-14] MEDS ORDERED: D50W 25 GM/50 ML SYRINGE IV ONE (01:25)
[2025-04-14] MEDS: INSULIN REGULAR (HUMAN) 100 UNIT/ML IV ONE ×2 (01:25→05:00)
--- NOTE | 2025-04-14 01:25 | RAD REPORT ---
Clinical Indication: ; abdominal pain/LETHARGIC/CLAMMY/SLOW HEART RATE Comparison: None TECHNIQUE: Sequential trans-axial images of the chest, abdomen and pelvis were obtained with a multi- detector helical CT after iodinated contrast administration per dissection CTA protocol. Coronal and sagittal reconstructions were obtained and provided as separate series. 3-D postprocessing recons tructions were obtained. IV CONTRAST: IV contrast dose was not provided. All CT scans at this location are performed using dose optimization techniques as appropriate to perf orm the study. Radiation dose reduction technique was utilized including one or more of the following: Automated exp osure control, adjustment of the mA and/or kV according to patient size and use of iterative reconstruction technique. CT Radiation Dose DLP 2443.8 mGy-cm FINDINGS: CTA CHEST: VASCULAR STRUCTURES: The ascending thoracic aorta appears unremarkable. The aortic arch and descendin g thoracic aorta appear unremarkable. There is no thoracic aortic dissection. The great vessels are unremarkable. The main, right and left pulmonary arteries are normal. There are no central segmental pulmonary embo li noted. The superior vena cava is unremarkable. LUNG PARENCHYMA AND PLEURA: There are no lung nodules. There is no interstitial lung disease. There are no pleural effusions or pneumothorax. AIRWAY: The central airway is normal. MEDIASTINUM: There is no mediastinal lymphadenopathy. HEART: Severe four-chamber cardiomegaly is noted. Small pericardial effusion is noted. This is predom inantly around the pericardial reflection at the aortic base. This can be seen on image 37 of series 401. OSSEOUS STRUCTURES: There are no definite acute osseous abnormalities seen. Degenerative changes are noted in the thoracic spine. CTA ABDOMEN: ARTERIAL EVALUATION: The abdominal aorta is unremarkable. The celiac artery, superior mesenteric annalisa ry and inferior mesenteric artery origins are widely patent. Bilateral renal arteries are patent. There are 1 right renal and 1 left renal arteries. There is no C T evidence of renal artery stenosis. ABDOMINAL SOLID ORGANS: The liver is enlarged and hypodense. This is consistent with fatty infiltrati on. Consider congestive hepatic failure. Diffuse thickening of the gallbladder wall is noted. No surrounding fat stranding is noted. The pancreas, spleen and adrenal glands are unremarkable. Diffuse peripheral wedge-shaped areas of nonperfusion is noted in the bilateral kidneys. This is best seen on image 67 of series 501. Mild nonspecific perinephric fat stranding is noted. This is consistent with multiple small infarcts. PERITONEUM AND RETROPERITONEUM: There is no retroperitoneal or abdominal lymphadenopathy. There is a small amount of abdominal ascites. STOMACH AND BOWEL: The noncontrast opacified stomach and loops of bowel in the abdomen are unremarkab le. The lack of orally administered contrast material limits assessment. OSSEOUS STRUCTURES: There are no definite acute osseous abnormalities seen. Moderate degenerative nilton nges are noted in the lumbar spine. CTA PELVIS: ARTERIAL EVALUATION: Bilateral common iliac, internal iliac, external iliac and common femoral arteri es appear unremarkable. NONVASCULAR STRUCTURES: There is no pelvic lymphadenopathy. A small amount of pelvic ascites is noted . The bladder is unremarkable. The prostate is unremarkable. BOWEL: The noncontrast opacified loops of small bowel and colon in the pelvis are unremarkable. The l ack of orally administered contrast material limits assessment. OSSEOUS STRUCTURES: There are no definite acute osseous abnormalities seen. IMPRESSION: 1. Unremarkable CT angiography of chest, abdomen and pelvis. No evidence of aortic dissection. 2. Severe four-chamber cardiomegaly. 3. Diffuse multiple peripheral wedge-shaped areas of nonopacification in the kidneys is consistent wi th multiple embolic phenomena/infarct. 4. Hepatomegaly with hypodense liver. Consider passive congestive failure. 5. Diffuse thickening of the gallbladder wall. Electronically signed by: Wiliam Garza MD 04/14/2025 01:20 AM CDT Due to temporary technical issues with the PACS/[employer] reporting system, reports are being [place] d by the in-house radiologist without review as a courtesy to ensure prompt reporting the interpreting radiologist is fully responsible for the content of the report. Transcribed Date/Time: 04/14/2025 1:25 AM
[2025-04-14] MEDS: CALCIUM GLUCONATE 1 GM IVPB 1 GM/50 ML BAG IV ONE (01:31)
[2025-04-14] MEDS: MIDAZOLAM HCL 2 MG/2 ML INJ ONE (01:39)
[2025-04-14] MEDS: MIDAZOLAM HCL 2 MG/2 ML INJ IV ONE (01:40)
[2025-04-14] MEDS ORDERED: MIDAZOLAM HCL IN 0.9 % NACL/PF 100 MG/100 ML BAG IVPB ONE ×2 (01:48→18:12)
[2025-04-14] MEDS: MIDAZOLAM HCL 100 MG in NA CHLORIDE 0.9% 80 ML IV SCH (02:00)
[2025-04-14] MEDS: FENTANYL CITR 100 MCG/2 ML ONE (02:02)
[2025-04-14] MEDS: DEXMEDETOMIDINE HCL 200 MCG/2 ML VIAL ONE (02:05)
[2025-04-14] MEDS: NA CHLORIDE 0.9% 100 ML ONE ×2 (02:05→04:01)
[2025-04-14] MEDS: DEXMEDETOMIDINE HCL 200 MCG in NA CHLORIDE 0.9% 98 ML IV SCH (02:10)
--- NOTE | 2025-04-14 03:17 | P.CNS ---
Date of Consult: 04/14/25 Patient was taken to CT from ICU for abdominal pain and altered mental status, CODE BLUE was called due to ineffective respirations and warehouse trainer believe patient needed to be intubated. Patient never went pulseless but was severely bradycardic, diaphoretic, cyanotic and not taking effective respirations. Initially spouse and patient both declined intubation and reports that he has a DNR and does not wish to be intubated. Later changed her mind and spoke to patient and he changed his mind as well and were okay with i ntubation. Patient intubated using MAC 4 blade, 7.5 ET tube, single pass with cricoid pressure after administration of succinylcholine and etomidate. Labs were sent and following intubation result of hyperkalemia of 6.2. Ordered calcium gluconate, sodium bicarb, insulin and D50. Patient began to stabilize and was transferred back to ICU.
[2025-04-14 03:33] LABS: Base Excess, VBG -9.2 mmol/L (-2.0-3.0); HCO3, Venous Blood Gas 19.3 mmol/L (21.0-29.0); O2 Saturation, VBG 68.2 % (40.0-70.0); PCO2, Venous Blood Gas 53 mmHg (41-51); PO2, Venous Blood Gas 46 mmHg (25-40)
[2025-04-14 03:36] LABS: PH, Venous Blood Gas 7.17 (7.32-7.42)
[2025-04-14] MEDS: D5W 1,000 ML IV ONE (03:59)
[2025-04-14] MEDS: SODIUM BICARB 50 MEQ/50ML VIAL ONE (03:59)
[2025-04-14 04:01] LABS: ALT/SGPT 1940.0 U/L (16-61); AST/SGOT 3540.0 U/L (15-37); Albumin 3.0 g/dL (3.4-5.0); Albumin/Globulin Ratio 1.0 (1.1-1.8); Alkaline Phosphatase 110.0 U/L (45-117); Anion Gap 17.8 mEq/L (5.0-15.0); BUN Blood Urea Nitrogen 38.0 mg/dL (7-18); Globulin 2.9 g/dL (2.3-3.5); Potassium 4.8 mEq/L (3.5-5.1); Troponin High Sensitivity 16.8 pg/mL (<58.9)
[2025-04-14] MEDS: FUROSEMIDE 100 MG/10 ML VIAL IV ONE (04:01)
[2025-04-14 04:04] LABS: Glucose Level 414.0 mg/dL (74-106)
[2025-04-14] MEDS: NA BICARB IV SCH (04:11)
[2025-04-14] MEDS: D5W IV SCH (04:11)
[2025-04-14] MEDS: FUROSEMIDE 100 MG in NA CHLORIDE 0.9% 90 ML IV SCH ×2 (04:12→14:25)
[2025-04-14 05:34] LABS: Absolute Lymphocytes (CBC) 0.3 K/uL (0.7-4.9); Hematocrit 39.7 % (39.6-49.0); Hemoglobin 13.6 g/dL (13.6-17.9); MCH 34.8 pg (27.0-35.0); MCHC 34.3 g/dL (32.0-36.0); MCV 101.2 fL (80-100); MPV 8.9 fL (7.6-11.3); Nucleated RBC Absolute Count 0.0 (0-0); Nucleated Red Blood Cells % 0.3 % (0-0); RBC Red Blood Cell Count 3.92 M/uL (4.33-5.43); White Blood Count 12.30 thou/uL (4.3-10.9)
[2025-04-14 05:57] LABS: Anion Gap 18.1 mEq/L (5.0-15.0); BUN Blood Urea Nitrogen 43.0 mg/dL (7-18); Glucose Level 173.0 mg/dL (74-106); Magnesium 2.6 mg/dL (1.6-2.4); NT PRO-BNP 11264.0 pg/mL (<125); Potassium 5.1 mEq/L (3.5-5.1); Troponin High Sensitivity 19.9 pg/mL (<58.9)
--- NOTE | 2025-04-14 06:07 | RAD REPORT ---
CLINICAL HISTORY: S/P INTUBATION, NGT TECHNIQUE: Frontal view of the chest. COMPARISON: No relevant prior studies available. FINDINGS: Lungs: Unremarkable. No consolidation. Pleural space: Unremarkable. No pneumothorax. Heart: The cardiac silhouette is moderately enlarged, in part accentuated by portable technique and degree of inspiration. Mediastinum: Unremarkable. Normal mediastinal contour. Bones/joints: Multilevel spondylosis. No acute fracture. Tubes, lines and devices: Endotracheal tube tip projects 3.3 cm proximal to the geoffrey. Nasogastric tube tip collimated off the [id number]. The distal visualized portion projects over the left upper quadrant in the expected region of the stomach. IMPRESSION: 1. Endotracheal tube tip projects 3.3 cm proximal to the geoffrey. 2. Nasogastric tube tip collimated off the [id number]. The distal visualized portion projects ov er the left upper quadrant in the expected region of the stomach. Electronically signed by: Dalia Chavez MD 04/14/2025 03:26 AM CDT Due to temporary technical issues with the PACS/[employer] reporting system, reports are being israel d by the in-house radiologist without review as a courtesy to ensure prompt reporting the interpreting radiologist is fully responsible for the content of the report. Transcribed Date/Time: 04/14/2025 6:09 AM
[2025-04-14] MEDS: NACHLORIDE 0.45% 1,000 ML IV SCH (06:33)
[2025-04-14] MEDS: INSULIN REGULAR (HUMAN) 100 UNIT/ML IV SCH (07:30)
[2025-04-14 08:23] LABS: Arterial Blood Carboxyhemoglob 1.0 % (0.0-1.5); Blood Gas Inspired Oxygen 70.0 %; Blood Gas Oxyhemoglobin 92.4 % (94.0-97.0); Blood O2 Saturation 95.1 % (92.0-98.5)
[2025-04-14] MEDS ORDERED: NOREPINEPHRINE BITARTRATE/D5W 4 MG/250 ML BAG IV SCH (09:00)
[2025-04-14] MEDS: MIDAZOLAM HCL 2 MG/2 ML INJ IV PRN (09:04)
[2025-04-14] MEDS: LORazepam 2 MG/ML VIAL IV PRN (09:21)
[2025-04-14] MEDS: FENTANYL CITR 100 MCG/2 ML IV PRN (09:21)
[2025-04-14] MEDS ORDERED: ETOMIDATE 20 MG/10 ML VIAL IV ONE (11:05)
--- NOTE | 2025-04-14 12:05 | P.CNS ---
Date of Consult: 04/14/25 Reason for Consult: S/p cardiac arrest patient on a ventilator Chief Complaint: SOB, Weakness, Atrial fibrillation with rapid ventricular response History of Present Illness: Patient is 59 years of age currently on a ventilator unresponsive on vasopressors and Versed drip and daughter present at the bedside has been complaining of worsening cough the past 2 weeks felt weak fatigued admission precipitated by abdominal pain and he went into a cardiac arrest was resuscitated transferred to the ICU is currently on low-dose dopamine Lasix drip bicarbonate and a Versed drip also helping some swelling of his legs no prior history of coronary artery disease Allergies No Known Allergies Allergy (Verified 02/25/23 07:48) Home Medications: Cetirizine HCl [Allergy] 10 mg PO DAILY 01/01/23 Ibuprofen [Ibu] 600 mg PO DAILY PRN 01/01/23 Mecobalamin [B12 Active] 1 tab PO DAILY 01/01/23 Multivitamin 1 each PO DAILY 01/01/23 Omeprazole 20 mg PO DAILY 01/01/23 Tamsulosin [Flomax*] 0.4 mg PO DAILY 01/01/23 Zolpidem Tartrate 10 mg PO BEDTIME 01/01/23 lisinopriL [Zestril] 40 mg PO DAILY 01/01/23 Amlodipine [Norvasc] 5 mg PO DAILY 04/13/25 Benzonatate [Tessalon Perle] 100 mg PO TID 04/13/25 Cefdinir [Omnicef] 300 mg PO DAILY 04/13/25 Ergocalciferol (Vitamin D2) [Vitamin D2] 50,000 unit PO EVERY 7TH DAY 04/13/25 Fluticasone Propionate [Flonase Allergy Relief] 1 spray IH DAILY 04/13/25 - Past Medical/Surgical History Diabetic: No -: HTN -: frequent UTI -: colon cancer- surgery -: heat stroke 3 years ago -: colonoscopy -: cystoscopy with biopsies - Family History Mother Medical History: Heart disease - Social History Smoking Status: Never smoker Alcohol use: Yes CD- Drugs: No Caffeine use: Yes Place of Residence: Home Review of Systems is unable to be obtained Physical Examination Temp Pulse Resp BP Pulse Ox 97.2 F 94 H 18 98/64 95 04/14/25 01:05 04/14/25 09:00 04/14/25 09:51 04/14/25 09:00 04/14/25 09:51 General: Unresponsive Respiratory: Clear to auscultation bilaterally Cardiovascular: No edema, Regular rate/rhythm, Normal S1 S2 Gastrointestinal: Normal bowel sounds, Soft and benign, Non-distended Musculoskeletal: No clubbing, No swelling Laboratory Data (last 24 hrs) 04/13/25 04/13/25 04/13/25 15:37 13:52 13:52 WBC 7.60 Hgb 12.6 L Hct 37.3 L Plt Count 224 PT 13.7 H INR 1.22 Sodium Potassium BUN Creatinine Glucose Magnesium 1.9 Total Bilirubin AST ALT Alkaline Phosphatase 04/13/25 13:52 WBC Hgb Hct Plt Count PT INR Sodium 133 L Potassium 4.7 BUN 29 H Creatinine 1.06 Glucose 138 H Magnesium 1.9 Total Bilirubin 1.3 H AST 130 H ALT 113 H Alkaline Phosphatase 69 - Problems (1) Respiratory failure Current Visit: Yes Status: Acute Plan: Patient is in respiratory failure currently on a ventilator low-dose dopamine drip labs reviewed BNP is elevated otherwise otherwise chemistries and blood gases unremarkable patient has very impressive cardiomegaly on chest x-ray no evidence of pneumonia patient has multiorgan failure abnormal renal function abnormal LFTs hyperkalemia will need to repeat currently on a bicarb drip will also give patient some hydrocortisone vital signs all reviewed will adjust the ventilator rate oxygenation satisfactory titrate O2 down Qualifiers: Chronicity: acute
--- NOTE | 2025-04-14 12:12 | P.PN ---
Subjective Date of Service: 04/14/25 Chief Complaint: SOB, Weakness, Atrial fibrillation with rapid ventricular response Subjective: New changes (Patient got hypoxic overnight and needed to be intubated) Review of Systems is unable to be obtained (intubated, sedated) Physical Examination - Vital Signs Temperature: 97.2 F Blood Pressure: 98/64 Pulse: 94 Respirations: 18 Pulse Ox (%): 95 - Physical Exam General: Other (inutated, sedated) HEENT: Atraumatic, PERRLA, EOMI Neck: Supple, JVD not distended Respiratory: Clear to auscultation bilaterally, Normal air movement Cardiovascular: Regular rate/rhythm, Normal S1 S2 Gastrointestinal: Normal bowel sounds, No tenderness Musculoskeletal: No tenderness Integumentary: No rashes Neurological: Normal speech, Normal tone, Normal affect Lymphatics: No axilla or inguinal lymphadenopathy - Studies Laboratory Data (last 24 hrs) 04/13/25 04/13/25 04/13/25 15:37 13:52 13:52 WBC 7.60 Hgb 12.6 L Hct 37.3 L Plt Count 224 PT 13.7 H INR 1.22 Sodium Potassium BUN Creatinine Glucose Magnesium 1.9 Total Bilirubin AST ALT Alkaline Phosphatase 04/13/25 13:52 WBC Hgb Hct Plt Count PT INR Sodium 133 L Potassium 4.7 BUN 29 H Creatinine 1.06 Glucose 138 H Magnesium 1.9 Total Bilirubin 1.3 H AST 130 H ALT 113 H Alkaline Phosphatase 69 Medications List Reviewed: Yes Assessment And Plan - Current Problems (Diagnosis) (1) Atrial fibrillation Current Visit: Yes Status: Acute Plan: Patient converted to sinus rhythm spontaneously after intubation, current in sinus rhythm. (2) PVC (premature ventricular contraction) Current Visit: Yes Status: Acute Plan: Patient was supposed to get coronary angiogram but went into hypoxic respiratory failure continue to monitor on tele (3) Cardiogenic shock Current Visit: Yes Status: Acute Plan: Patient went hypoxic overnight, required intubation, no code, patient repeated troponin are negative, echo show Bi ventricular failure, most likely some form of myocarditis especially with recent viral illness. continue dopamine for inoptropic and pressure support continue IV lasix drip patient will need to be transferred to medical center for higher level of care for possible LHC/RHC, coronary angiogram +/- LV support.
--- NOTE | 2025-04-14 12:12 | ECHO ---
HEIGHT: 5 ft 7 in WEIGHT: 190 lb 0 oz DATE OF STUDY: 04/14/[address]: Pritesh Walls MD 2-DIMENSIONAL: YES M.MODE: YES DOPPLER: YES COLOR FLOW: YES TDS: PORTABLE: YES DEFINITY: BUBBLE STUDY: DIAGNOSIS: ATRIAL FIBRILLATION WITH RAPID VENTRICULAR RESPONSE CARDIAC HISTORY: CATHERIZATION: SURGERY: PROSTHETIC VALVE: PACEMAKER: MEASUREMENTS (cm) DIASTOLIC (NORMALS) SYSTOLIC (NORMALS) IVSd 1.0 (0.6-1.2) LA Diam 4.7 (1.9-4.0) LVEF 5-10% LVIDd 5.9 (3.5-5.7) LVIDs 5.7 (2.0-3.5) %FS 3% LVPWd 1.2 (0.6-1.2) Ao Diam 2.8 (2.0-3.7) 2 DIMENSIONAL ASSESSMENT: RIGHT ATRIUM: NORMAL LEFT ATRIUM: MILDLY DILATED RIGHT VENTRICLE: MILDLY DILATED LEFT VENTRICLE: MILDLY DILATED TRICUSPID VALVE: MODERATE TO SEVERE TRICUSPID REGURGITATION MITRAL VALVE: MODERAT MITRAL REGURGITATION PULMONIC VALVE: NORMAL AORTIC VALVE: NORMAL PERICARDIAL EFFUSION: NONE AORTIC ROOT: NORMAL LEFT VENTRICULAR WALL MOTION: SEVERE GLOBAL HYPOKINESIS DOPPLER/COLOR FLOW: DIASTOLIC DYSFUNCTION COMMENTS: 1. SEVERELY REDUCED LEFT VENTRICULAR SYSTOLIC FUNCTION, EJECTION FRACTION 5-10%, SEVERE GLOBAL HYPOKINESIS 2. MODERATELY REDUCED RIGHT VENTRICULAR SYSTOLIC FUNCTION 3. BI-VENTRICULAR FAILURE 4. MODERATE MITRAL REGURGITATION 5. MODERATE TO SEVERE TRICUSPID REGURGITATION 6. ELEVATED FILLING PRESSURE (RIGHT ATRIAL PRESSURE GREATER THAN 20 mmHg) TECHNOLOGIST: LEONARD PACK [facility]
[2025-04-14] MEDS: HYDROCORTISONE SUC 100 MG INJ IV SCH (12:55)
[2025-04-14] MEDS: DEXMEDETOMIDINE HCL 1,000 MCG in NA CHLORIDE 0.9% 490 ML IV SCH (12:56)
[2025-04-14 13:32] VITALS: O2SAT 95
[2025-04-14] MEDS: DOPAMINE HCL IN DEXTROSE 5 % 400 MG/250 ML KIT IV ONE (14:25)
[2025-04-14] MEDS: ALBUMIN HUMAN 25% 100 ML IV ONE (14:26)
[2025-04-14 18:15] VITALS: BP 105/73
[2025-04-14] MEDS ORDERED: PIPER TAZO 3.375 GM in NA CHLORIDE 0.9% 100 ML IV SCH (20:00)
== END 2025-04-14 18:45 | disposition short-term general hospital (02) | DRG 308 ==
LOC: ER 13:26 → ERHOLD 16:11 → 3RD-ICU 16:58
PROVIDERS: ADMIT Hospitalist; ATTEND Hospitalist
PROC: 0BH18EZ Insertion of Endotracheal Airway into Trachea, Via Natural or Artificial Opening Endoscopic (ICD-10-PCS; principal; 2025-04-13)
PROC: 5A1945Z Respiratory Ventilation, 24-96 Consecutive Hours (ICD-10-PCS; 2025-04-13)
DX: I48.91 Unspecified atrial fibrillation (principal); J96.91 Respiratory failure, unspecified with hypoxia; R57.0 Cardiogenic shock; Z79.899 Other long term (current) drug therapy; Z66 Do not resuscitate; Z79.2 Long term (current) use of antibiotics; I10 Essential (primary) hypertension; Z85.038 Personal history of other malignant neoplasm of large intestine; Z86.73 Personal history of transient ischemic attack (TIA), and cerebral infarction without residual deficits; Z98.890 Other specified postprocedural states; J06.9 Acute upper respiratory infection, unspecified; D50.9 Iron deficiency anemia, unspecified; N40.0 Benign prostatic hyperplasia without lower urinary tract symptoms; K21.9 Gastro-esophageal reflux disease without esophagitis; G47.00 Insomnia, unspecified; Z90.49 Acquired absence of other specified parts of digestive tract; I49.3 Ventricular premature depolarization; E87.5 Hyperkalemia; K74.60 Unspecified cirrhosis of liver
CPT/HCPCS: 36415; 36600; 71045; 71250; 71275; 74175; 80048; 80053; 80076; 82803; 82805; 82947; 83605; 83735; 83880; 84484; 85025; 85379; 85610; 87040; 93005; 93306; 94002; 96372; 96374; 96375; 99285; J0282; J0612; J1171; J1650; J1720; J1815; J1938; J2250; J2405; J2470; J2550; J2704; J2919; J3010; J3475; J7030; J7040; J7050; J7060; P9047; Q9967